=== PATIENT | male | born 1975 | race Two or more races ===

== ENCOUNTER 2025-03-15 17:39 | Emergency (ER) | payer MEDICAID, OTHER ==
[~2025-03-15] VITALS: Ht 185.4 cm; Wt 92.7 kg
[2025-03-15 17:48] VITALS: BP 140/97; PULSE 91; RESP 20; TEMP 97.8; O2SAT 99
--- NOTE | 2025-03-15 18:43 | ED.PDOC ---
History of Present Illness HPI Comments 49-year-old male with PMHx Metastatic Stage 4 Renal Cell Carcinoma presents with a chief complaint of generalized weakness with associated nausea and vomiting. Patient states that he recently had a craniotomy due to his metastatic cancer and has been having generalized weakness since. Patient states that he was meant to follow-up with neurology, but AMA'd due to being scared. Patient denies any headache or head pain at this time. Chief Complaint: General Weakness Time Seen by MD: 18:22 Primary Care Provider: NATALIE Reviewed Notes: Nurses Notes, Medications, Allergies Allergies: Coded Allergies: Penicillins (Verified Allergy, Unknown, 03/15/25) Information Source: Patient Mode of Arrival: Ambulatory Severity: Moderate Timing: Hours Duration: Since onset Prehospital treatment: None Past Medical History PAST MEDICAL HISTORY: Cancer, HTN Surgical History (Other): CRANIOTOMY Family History Family History: Reviewed,noncontributory to illness Social History Smoker: Cigarettes Alcohol: Denies ETOH Use Drugs: Marijuana Lives In: Home Constitutional: denies: chills, diaphoresis, fatigue, fever, malaise, sweats, weakness, others EENTM: denies: blurred vision, double vision, ear bleeding, ear discharge, ear drainage, ear pain, ear ringing, eye pain, eye redness, hearing loss, mouth pain, mouth swelling, nasal discharge, nose bleeding, nose congestion, nose pain, photophobia, tearing, throat pain, throat swelling, voice changes, others Respiratory: denies: cough, hemoptysis, orthopnea, SOB at rest, shortness of breath, SOB with excertion, stridor, wheezing, others Cardiovascular: denies: chest pain, dizzy spells, diaphoresis, Dyspnea on exertion, edema, irregular heart beat, left arm pain, lightheadedness, palpitations, PND, syncope, others Gastrointestinal: denies: abdomen distended, abdominal pain, blood streaked bowels, constipated, diarrhea, dysphagia, difficulty swallowing, hematemesis, melena, nausea, poor appetite, poor fluid intake, rectal bleeding, rectal pain, vomiting, others Genitourinary: denies: burning, dysuria, flank pain, frequency, hematuria, incontinence, penile discharge, penile sore, pain, testicle pain, testicle swelling, urgency, others Neurological: denies: dizziness, fainting, headache, left sided numbness, left sided weakness, numbness, paresthesia, pre-existing deficit, right sided numbness, right sided weakness, seizure, speech problems, tingling, tremors, weakness, others Musculoskeletal: denies: back pain, gout, joint pain, joint swelling, muscle pain, muscle stiffness, neck pain, others Integumetry: denies: bruises, change in color, change in hair/nails, dryness, laceration, lesions, lumps, rash, wounds, others Allergic/Immunocompromised: denies: Difficulty Healing, Frequent Infections, Hives, Itching, others Hematologic/Lymphatic: denies: anemia, blood clots, easy bleeding, easy bruising, swollen glands, others Endocrine: denies: excessive hunger, excessive sweating, excessive thirst, excessive urination, flushing, intolerance to cold, intolerance to heat, unexplained weight gain, unexplained weight loss, others Psychiatric: denies: anxiety, bipolar disorder, depression, hopeless, panic d isorder, schizophrenia, sleepless, suicidal, others All Other Systems: Reviewed and Negative Physical Exam General Appearance: No Apparent Distress HEENT: Pale Conjuntivae (L), Pale Conjuntivae (R), Pharynx Normal, TMs Normal Neck: Full Range of Motion, Non-Tender, Normal, Normal Inspection Respiratory: Chest Non-Tender, Lungs Clear, No Accessory Muscle Use, No Respiratory Distress, Normal Breath Sounds Cardiovascular: No Edema, No JVD, No Murmur, No Gallop, Normal Peripheral Pulses, Regular Rate/Rhythm Breast Exam: Deferred Gastrointestinal: No Organomegaly, Non Tender, No Pulsatile Mass, Normal Bowel Sounds, Soft Genitalia: Deferred Pelvic: Deferred Rectal: Deferred Extremities: No calf tenderness, Normal capillary refill, Normal inspection, Normal range of motion, Non-tender, No pedal edema Musculoskeletal : Apperance: Normal Neurologic: Alert, mold technician II-XII nml as Tested, Motor Weakness, Normal Affect, Normal Mood, No Sensory Deficits Cerebellar Function: Normal Reflexes: Normal Skin: Dry, Pallor, Warm Lymphatic: No Adenopathy Was a procedure done? Was a procedure done?: No Differential Dx Considerations may include: Anemia, generalized weakness, electrolyte imbalance X-Ray, Labs, Meds, VS Vital Signs Date Time Temp Pulse Resp B/P (MAP) Pulse Ox O2 Delivery O2 Flow Rate FiO2 7/22/25 17:48 97.8 91 20 140/97 (111) 99 97.8 At this time, the patient has eloped from the department's. We did try to contact the patient but unfortunately it seems he is now non from the department's Time of 1ST Reevaluation: 18:52 Reevaluation 1ST: Unchanged Patient Education/Counseling: Diagnosis, Treatment, Prognosis Family Education/Counseling: No Family Present SEPSIS Sepsis Screen Date sepsis recognized/suspect: Mar 15, 2025 Time Sepsis recognized/suspect: 1747 Recent Procedure: No On Antibiotic Therapy: No Respiratory Rate >20: No Heart Rate >90: Yes Temp<36 C (96.8 F) or >38.3 C: No SBP <90 or MAP <65 mmHG: No New Acute Mental Status Change: No Is the patient on CPAP, BIPAP,: No Physician Orders Head Without Contrast (03/15/25 18:30) Vital Signs Date Time Temp Pulse Resp B/P (MAP) Pulse Ox O2 Delivery O2 Flow Rate FiO2 03/15/25 17:48 97.8 91 20 140/97 (111) 99 97.8 Departure 1 Departure Time of Disposition: 20:40 Impression: Primary Impression: Generalized weakness Additional Impression: Renal carcinoma Qualified Codes: C64.9 - Malignant neoplasm of unspecified kidney, except renal pelvis Disposition: 07 LEFT AWOL/ELOPED Condition: Fair Critical Care Note Critical Care Time?: No Stability Stability form required: No Heart Score Heart Score: Heart Score Response (Comments) Value History N/A 0 EKG N/A 0 Age N/A 0 Risk Factors N/A 0 Troponin N/A 0 Total 0 I personally scribed for RAAD TINAJERO MD ([email or web address]) on 03/15/25 at 18:43. Electronically submitted by Satish Kan ([email or web address]). RAAD TINAJERO MD Mar 15, 2025 18:43
== END 2025-03-15 20:40 | disposition left against medical advice (07) ==
LOC: ER 17:39
DX: R53.1 Weakness (principal); C64.9 Malignant neoplasm of unspecified kidney, except renal pelvis; F12.90 Cannabis use, unspecified, uncomplicated; F17.210 Nicotine dependence, cigarettes, uncomplicated; I10 Essential (primary) hypertension; Z98.890 Other specified postprocedural states; Z88.0 Allergy status to penicillin
CPT/HCPCS: 82947

== ENCOUNTER 2025-05-18 01:44 | Inpatient (IN) | payer MEDICAID ==
[2025-05-18] VITALS (11 sets, daily range): BP systolic 133–137; BP diastolic 86–90; PULSE 88–120; RESP 16–25; TEMP 98–99.4; O2SAT 93–100
[~2025-05-18] VITALS: Ht 185.4 cm; Wt 79.0 kg
[2025-05-18] MEDS: SODIUM CHLORIDE 0.9% 1,000 ML IVB ONE (03:00)
[2025-05-18] MEDS: MORPHINE SULFATE 4 MG/ML SYR/VIAL IV ONE (03:00)
--- NOTE | 2025-05-18 03:02 | ED.PDOC ---
History of Present Illness HPI Comments 49-year-old male with a history of renal cell cancer with brain Mets and left knee meniscus tear now presents by ambulance from home with left knee pain and swelling. Patient attributes this to this chronic pain and from the meniscus tear. Also rapid heart rate noted. Patient denies chest pain or fever throwing up or diarrhea Chief Complaint: Lower Extremity Time Seen by MD: 02:04 Primary Care Provider: NATALIE Allergies: Coded Allergies: Penicillins (Verified Allergy, Unknown, 03/15/25) Information Source: Patient, Emergency Med Personnel Mode of Arrival: EMS Severity: Moderate, Severe Timing: Days Duration: Since onset Past Medical History PAST MEDICAL HISTORY: Cancer, HTN Family History Family History: Reviewed,noncontributory to illness Social History Smoker: Cigarettes Alcohol: Denies ETOH Use Drugs: Marijuana Lives In: Home Constitutional: reports: fatigue, malaise Cardiovascular: reports: palpitations Musculoskeletal: reports: joint pain, joint swelling All Other Systems: Reviewed and Negative Physical Exam General Appearance: Moderate Distress HEENT: Normal ENT Inspection, Pharynx Normal, TMs Normal Neck: Full Range of Motion, Non-Tender, Normal, Normal Inspection Respiratory: Chest Non-Tender, Lungs Clear, No Accessory Muscle Use, No Respiratory Distress, Normal Breath Sounds Cardiovascular: Tachycardia Breast Exam: Deferred Gastrointestinal: No Organomegaly, Non Tender, No Pulsatile Mass, Normal Bowel Sounds, Soft Genitalia: Deferred Pelvic: Deferred Rectal: Deferred Extremities: Swelling (Left knee diffuse tenderness and swelling. No calf tenderness.), Tender, Other Musculoskeletal : Apperance: Normal Neurologic: Alert, hand i cutter II-XII nml as Tested, No Motor Deficits, Normal Affect, Normal Mood, No Sensory Deficits Cerebellar Function: Normal Reflexes: Normal Skin: Dry, Normal Color, Warm Lymphatic: No Adenopathy Was a procedure done? Was a procedure done?: No Differential Dx Considerations may include: Differential diagnosis includes but not limited to: Pulmonary embolus, coronary ischemia, sepsis, atrial fibrillation, ventricular tachycardia, dehydration and others X-Ray, Labs, Meds, VS Vital Signs Date Time Temp Pulse Resp B/P (MAP) Pulse Ox O2 Delivery O2 Flow Rate FiO2 05/18/25 04:00 125 20 147/87 (107) 100 05/18/25 03:41 119 05/18/25 03:00 118 30 134/84 (101) 99 05/18/25 03:00 120 28 134/84 05/18/25 02:49 120 19 95 Room Air* 0 21 05/18/25 02:10 98.1 120 28 118/83 (95) 95 98.1 05/18/25 01:54 98.6 118 18 118/82 94 98.6 Lab Test 05/18/25 04:50 05/18/25 03:47 05/18/25 03:04 Range/Units Urine Color Pending Urine Clarity Pending Urine pH Pending Urine Specific [place] Pending Urine Protein Pending Urine Ketones Pending Urine Blood Pending Urine Nitrite Pending Urine Bilirubin Pending Urine Urobilinogen Pending Urine Leukocyte Esterase Pending Urine RBC Pending Urine Microscopic WBC Pending Urine Squamous Epithelial Cells Pending Urine Bacteria Pending Urine Glucose Pending Urine Opiates Screen Pending Urine Fentanyl Screen Pending Urine Barbiturates Screen Pending Urine Phencyclidine Screen Pending Urine Amphetamines Screen Pending Urine Benzodiazepines Screen Pending Urine Cocaine Screen Pending Urine Cannabinoids Screen Pending Troponin I High Sensitivity 24 41 </=54 ng/L White Blood Count 14.0 H 4.4-10.8 10^3/uL Red Blood Count 3.50 L 4.5-5.90 10^6/uL Hemoglobin 10.3 L 13.5-17.5 g/dL Hematocrit 31.3 L 41.0-53.0 % Mean Corpuscular Volume 89.5 80.0-100.0 fL Mean Corpuscular Hemoglobin 29.5 28.0-32.0 pg Mean Corpuscular Hemoglobin Concent 33.0 32.0-36.0 g/dL Red Cell Distribution Width 16.2 H 11.8-14.3 % Platelet Count 292 140-450 10^3/uL Mean Platelet Volume 6.2 L 6.9-10.8 fL Neutrophils (%) (Auto) 90.4 H 37.0-80.0 % Lymphocytes (%) (Auto) 6.4 L 10.0-50.0 % Monocytes (%) (Auto) 2.7 0.0-12.0 % Eosinophils (%) (Auto) 0.1 0.0-7.0 % Basophils (%) (Auto) 0.4 0.0-2.0 % Neutrophils # (Auto) 12.6 H 1.6-8.6 10 ^3/uL Lymphocytes # (Auto) 0.9 0.4-5.4 10 ^3/uL Monocytes # (Auto) 0.4 0-1.3 10 ^3/uL Eosinophils # (Auto) 0 0-0.8 10 ^3/uL Basophils # (Auto) 0 0-0.2 10 ^3/uL Nucleated Red Blood Cells 0.0 % D-Dimer, Quantitative 14.23 H 0.0-0.49 mg/L FEU Sodium Level 135 L 136-145 mmol/L Potassium Level 4.3 3.5-5.1 mmol/L Chloride Level 100 98-107 mmol/L Carbon Dioxide Level 24 20-31 mmol/L Anion Gap 11 5-15 Blood Urea Nitrogen 19 9-23 mg/dL Creatinine 0.77 0.700-1.30 mg/dL Glomerular Filtration Rate Calc 111 >90 mL/min BUN/Creatinine Ratio 24.7 H 10.0-20.0 Serum Glucose 110 H 74-106 mg/dL Calcium Level 9.5 8.7-10.4 mg/dL Total Bilirubin 0.6 0.2-1.0 mg/dL Aspartate Amino Transferase (AST) 20 13-40 U/L Alanine Aminotransferase (ALT) 12 7-40 U/L Alkaline Phosphatase 130 H 46-116 U/L B-Type Natriuretic Peptide 53.70 0-100 pg/mL Total Protein 7.2 5.7-8.2 g/dL Albumin 3.5 3.2-4.8 g/dL Thyroid Stimulating Hormone (TSH) 1.55 0.55-4.78 uIU/mL Free Thyroxine (T4) Calculated 1.45 0.89-1.76 ng/dL Current Medications Medications (Trade) Dose Ordered Sig/Trent Route Start Time Stop Time Status Last Admin Sodium Chloride 1,000 ml @ 1,000 mls/hr Q1H ONCE IVB 05/18/25 03:00 05/18/25 03:59 DC 05/18/25 03:00 Morphine Sulfate 4 mg ONCE ONCE IV 05/18/25 03:00 05/18/25 03:01 DC 05/18/25 03:00 Ondansetron HCl (Zofran) 4 mg ONCE ONCE IV 05/18/25 03:00 05/18/25 03:01 DC 05/18/25 03:15 Time of 1ST Reevaluation: 03:01 Reevaluation 1ST: Unchanged Patient Education/Counseling: Diagnosis, Treatment Family Education/Counseling: No Family Present SEPSIS Sepsis Screen Date sepsis recognized/suspect: May 18, 2025 Time Sepsis recognized/suspect: 229 Recent Procedure: No On Antibiotic Therapy: No Respiratory Rate >20: No Heart Rate >90: Yes Temp<36 C (96.8 F) or >38.3 C: No SBP <90 or MAP <65 mmHG: No New Acute Mental Status Change: No Is the patient on CPAP, BIPAP,: No Physician Orders Chest Portable (05/18/25 02:56) Urinalysis (05/18/25 02:56) Troponin-I Hs (05/18/25 05:56) Drug Screen (05/18/25 02:56) Ct Chest/Ab/Pl W Con- Iv Only (05/18/25 04:01) Lactic Acid W/ Reflex Order (05/18/25 04:57) Blood Culture (05/18/25 04:57) Ceftriaxone 1gm/50ml (Rocephin) (05/18/25 05:15) Clindamycin 300mg Iv (Cleocin Iv) (05/18/25 05:15) Vital Signs Date Time Temp Pulse Resp B/P (MAP) Pulse Ox O2 Delivery O2 Flow Rate FiO2 05/18/25 04:00 125 20 147/87 (107) 100 05/18/25 03:41 119 05/18/25 03:00 118 30 134/84 (101) 99 05/18/25 03:00 120 28 134/84 05/18/25 02:49 120 19 95 Room Air* 0 21 05/18/25 02:10 98.1 120 28 118/83 (95) 95 98.1 05/18/25 01:54 98.6 118 18 118/82 94 98.6 Laboratory Tests Test 05/18/25 03:04 White Blood Count 14.0 10^3/uL (4.4-10.8) H Medications Medications Dose Ordered Sig/Trent Route Start Time Stop Time Status Last Admin Dose Admin Morphine Sulfate 4 mg ONCE ONCE IV 05/18/25 03:00 05/18/25 03:01 DC 05/18/25 03:00 Ondansetron HCl 4 mg ONCE ONCE IV 05/18/25 03:00 05/18/25 03:01 DC 05/18/25 03:15 Sodium Chloride 1,000 ml @ 1,000 mls/hr Q1H ONCE IVB 05/18/25 03:00 05/18/25 03:59 DC 05/18/25 03:00 Departure 1 Departure Time of Disposition: 05:06 Impression: Primary Impression: Generalized weakness Additional Impressions: Renal carcinoma Bilateral pulmonary embolism Disposition: ADMITTED INPATIENT Admit to: Tele Condition: Guarded Discharged With: Self Critical Care Note Critical Care Time?: Yes (35 min-critical care time only) Critical care comment: Total critical care time: Approximately 36 minutes Due to a high probability of clinically significant, life threatening deterioration, the patient required my highest level of preparedness to intervene emergently and I personally spent this critical care time directly and personally managing the patient. This critical care time included obtaining a history; examining the patient; pulse oximetry; ordering and review of studies; arranging urgent treatment with development of a management plan; evaluation of patient's response to treatment; frequent reassessment; and, discussions with other providers. This critical care time was performed to assess and manage the high probability of imminent, life-threatening deterioration that could result in multi-organ failure. It was exclusive of separately billable procedures and treating other patients. Stability Stability form required: No Heart Score Heart Score: Heart Score Response (Comments) Value History Slightly Suspicious 0 EKG Repolarization Disturb 1 Age 45-64 1 Risk Factors 1 or 2 risk factors 1 Troponin Normal limit 0 Total 3 GENO BUCKLEY MD May 18, 2025 03:02
[2025-05-18] MEDS: ONDANSETRON HCL 4 MG/2 ML VIAL IV ONE (03:15)
[2025-05-18 03:16] LABS: Hematocrit 31.3 % (41.0-53.0); Hemoglobin 10.3 g/dL (13.5-17.5); Mean Corpuscular Hemoglobin 29.5 pg (28.0-32.0); Mean Corpuscular Volume 89.5 fL (80.0-100.0); Nucleated Red Blood Cells % 0.0 %
--- NOTE | 2025-05-18 03:31 | DVH ---
CHEST RADIOGRAPH Indication: SOB Technique: Single frontal view of the chest was obtained COMPARISON: None FINDINGS: Lines and Tubes: Right mediPort tip projects over the distal superior vena cava. Lungs: Patchy right lower lung zone pulmonary airspace disease. Pleura: No effusion. No pneumothorax. Cardiomediastinal contours: Unremarkable Bones: Unremarkable IMPRESSION: 1. Patchy right lower lung zone pulmonary airspace disease. 2. Right MediPort.
[2025-05-18 03:32] LABS: Alanine Aminotransferase 12 U/L (7-40); Albumin 3.5 g/dL (3.2-4.8); Anion Gap 11 (5-15); BUN/Creatinine Ratio 24.7 (10.0-20.0); Bilirubin, Total 0.6 mg/dL (0.2-1.0); Blood Urea Nitrogen 19 mg/dL (9-23); Calcium 9.5 mg/dL (8.7-10.4); Carbon Dioxide 24 mmol/L (20-31); Chloride 100 mmol/L (98-107); Potassium 4.3 mmol/L (3.5-5.1); Total Protein 7.2 g/dL (5.7-8.2)
--- NOTE | 2025-05-18 03:42 | ECG ---
[facility] Test Date: 2025-05-18 Test Time: 03:41:07 Pat Name: IRENE SHRESTHA Department: Room: 0237T Gender: M Licensed Guide: NATHALIE : 1975 Requested By: GENO BUCKLEY Order Number: [id number] Reading MD: Malcom Villar Measurements Intervals [place] Rate: 119 P: 50 MA: 156 QRS: -14 QRSD: 99 T: 62 QT: 307 QTc: 432 Interpretive Statements Sinus tachycardia Electronically Signed On 05-26-2025 21:31:38 PDT by Malcom Villar Please click the below link to view image of tracing.
[2025-05-18 03:59] LABS: Alkaline Phosphatase 130 U/L (46-116); Glucose 110 mg/dL (74-106); Sodium 135 mmol/L (136-145)
[2025-05-18] MEDS: IOHEXOL 350 MG/ML 100ML IJ ONE (04:13)
[2025-05-18] MEDS ORDERED: PIPERACILLIN-TAZOB 3.375GM 100 ML IV ONE (05:00)
--- NOTE | 2025-05-18 05:13 | DVH ---
Exam: CT CT CHEST/AB/PL W CON- IV ONLY History: palpitations / pain r/o PE ///ABD Comparison Study: XY CHEST PORTABLE on DOS: 05/18/25 Technique: Multidetector spiral CT of the chest, abdomen and pelvis was performed from lower neck to pubic symphysis Axial, coronal and sagittal multiplanar reformats were performed by the technologist on a separate workstation. Radiation Dose : 1. Chest/Abdomen/Pelvis: CTDIvol 26.55 mGy, DLP 2910.12 mGy*cm. Findings: Lower neck: Normal thyroid. Lungs: Multiple masses throughout both lungs, the largest of which is a 3.6 x 2.6 cm posterior right lower lobe mass, consistent with metastatic disease. Diffuse bilateral ground-glass opacity. Heart/Vascular Structures: Normal heart size. Trace pericardial effusion. Filling defects noted bilat erally within primarily the lower lobe branches of the pulmonary arteries consistent with multiple pu lmonary emboli. Lymph Nodes: Multiple pathologically enlarged lymph nodes consistent with metastatic disease includin g a 7.5 x 5.2 cm superior right paratracheal mass as well as a 4.0 x 2.4 cm subcarinal mass and many other smaller aubree enlargements. Pleura: Small right pleural effusion. No evidence of pneumothorax. Liver: The liver is enlarged. No focal lesions. Normal hepatic vascular enhancement. Gallbladder and Biliary Tree: Unremarkable Spleen: Unremarkable. Multiple venous collaterals adjacent to the splenic hilum consistent with sequ elae of portal venous hypertension. Pancreas: The pancreas is normal in appearance without focal lesions or abnormal enhancement. Adrenal Glands: 1.6 cm hypoattenuating right adrenal nodule, adenoma versus metastatic disease. Kidneys: Lobulated heterogeneous right renal mass exhibiting central necrosis measuring 12.0 x 8.0 cm , most consistent with primary renal cell carcinoma. Left interpolar renal mass measures 1.8 cm and m ay represent malignancy. Bladder: Unremarkable Bowel: The stomach is grossly normal in appearance. Retained colorectal stool and mild rectal fecal i mpaction. Small bowel and colon are otherwise normal in caliber and distribution. The appendix is no rmal. Ascites: Trace right abdominal ascites. Lymphadenopathy: No mesenteric, retroperitoneal or periportal lymphadenopathy. Abdominal Wall and Mesentery: Unremarkable. Vasculature: The visualized abdominal aorta is normal in size and caliber. Abdominal and pelvic vess els demonstrate normal enhancement. Pelvic Organs: Unremarkable Musculoskeletal: No aggressive focal bony lesions, acute fractures or dislocation. IMPRESSION: 1. Bilateral pulmonary emboli 2. Multiple bilateral pulmonary masses consistent with metastatic disease. 3. Multiple pathologically enlarged mediastinal lymph nodes consistent with metastatic disease. 4. Lobulated heterogeneous right renal mass exhibiting central necrosis measuring 12.0 x 8.0 cm, most consistent with primary renal cell carcinoma. 5. Left interpolar renal mass measures 1.8 cm and may represent malignancy. 6. Trace right abdominal ascites. 7. Hepatomegaly. 8. Multiple venous collaterals adjacent to the splenic hilum consistent with sequelae of portal venou s hypertension. 9. 1.6 cm hypoattenuating right adrenal nodule, adenoma versus metastatic disease. 10. Small right pleural effusion. 11. Diffuse bilateral ground-glass opacity may be due to pulmonary edema or atypical infection. 12. Trace pericardial effusion. Critical Result: Pulmonary embolus Findings discussed with GENO BUCKLEY at 05/18/2025 08:05 AM PST, and acknowledged receipt and unde rstanding of the findings. All CT scans at this medical facility are performed using dose modulation techniques as appropriate t o a performed exam including the following: Automated exposure control was utilized; adjustment of th e MA and/or KV according to patient size; and use of iterative reconstruction technique.
[2025-05-18 05:14] LABS: Urine Protein, UAD 1+ (Negative)
[2025-05-18] MEDS ORDERED: HEPARIN SODIUM (PORCINE) 5000 UNITS/ML 1ML VIAL IV ONE (05:15)
[2025-05-18 05:18] LABS: Amphetamine Screen, Urine Neg (NEGATIVE); Benzodiazephine Screen, Urine Pos (NEGATIVE)
[2025-05-18 05:19] LABS: Barbiturate Scree,Urine Neg (NEGATIVE); Cannabinoid Screen, Urine Pos (NEGATIVE); Cocaine Screen, Urine Neg (NEGATIVE); Opiate Scree,Urine Pos (NEGATIVE); Phencyclidine Screen, Urine Neg (NEGATIVE)
[2025-05-18] MEDS: CLINDAMYCIN 300MG IV 50 ML IV ONE (05:50)
[2025-05-18] MEDS ORDERED: VANCOMYCIN PER PHARMACY 0 MG IV SCH (06:15)
[2025-05-18 06:27] LABS: INR 1.19 (0.9-1.15); Partial Thromboplastin Time 30.5 SEC (24.5-34.5); Prothrombin Time 12.4 sec (9.3-11.8)
[2025-05-18] MEDS: HEPARIN SODIUM (PORCINE) 5000 UNITS/ML 1ML VIAL IV ONE (06:31)
--- NOTE | 2025-05-18 06:41 | DVHHPRES ---
History of Present Illness Resident Creating Document: RUSTY SHAH History of Present Illness Parveen Cano is a 49-year-old male patient who presents to the ED with chief complaint of left knee pain secondary to torn meniscus which occurred on 05/11/2025, per patient he reports evaluation by insurance account specialist who recommended conservative management. Since then patient has been practically bed-bound. 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 Denies any other associated symptoms, including chest pain, dyspnea, palpitation and syncope. Past medical history: Renal cell carcinoma stage IV with multiple metastases including brain, status post craniotomy and chemotherapy Surgical history: Craniotomy, Port-A-Cath placement Family history: Noncontributory Social history: Lives in [place] with girlfriend (next of kin). Current tobacco abuse (approximately 30 pack-year history of smoking), he also smokes marijuana. Denies current alcohol and other drug abuse. Allergies: Penicillin Home medication: Does not recall. Patient says that he is still receiving chemotherapy (does not recall the name). Patient seen and examined at bedside. He is somnolent, presents expression aphasia probably his baseline. Contacted father who provides information of patient being in long term for the past three months and was not receiving chemotherapy. Past Medical History Per HPI Past Surgical History Per HPI Family History Per HPI Past Social History Per HPI Review of Systems Review of Systems Per HPI Allergies: Coded Allergies: Penicillins (Verified Allergy, Unknown, 03/15/25) Medications Current Medications Medications Dose Ordered Sig/Trent Route Start Time Stop Time Status Last Admin Dose Admin Heparin Sodium/ Dextrose 250 ml @ 16 mls/hr [id number] IV 05/18/25 06:30 UNV Acetaminophen 325 mg Q4HP PRN PO 05/18/25 06:15 Ondansetron HCl 4 mg Q4HP PRN IV 05/18/25 06:15 Morphine Sulfate 2 mg Q4HPRN PRN IV 05/18/25 06:15 Sodium Chloride 1,000 ml @ 75 mls/hr [id number] IV 05/18/25 06:15 Vancomycin HCl 0 ml @ 0 mls/hr UD IV 05/18/25 06:15 UNV Meropenem 50 ml @ 17 mls/hr Q8HR IV 05/18/25 14:00 UNV Exam Vital Signs Vital Signs Date Time Temp Pulse Resp B/P (MAP) Pulse Ox O2 Delivery O2 Flow Rate FiO2 05/18/25 06:00 120 17 122/79 (93) 97 05/18/25 02:49 Room Air* 0 21 05/18/25 02:10 98.1 98.1 Exam Patient lying in bed, in no acute distress General: Lucid, somnolent, afebrile, mucosae are dry, has poor dentition Cardiovascular: Tachycardic S1 and S2. No murmurs, gallops or rubs Respiratory: Regular ventilation mechanics, tachypnea. Diffuse hyperventilation, coarse rales in the right lower lob Abdomen: Soft, nontender, no organomegaly, normal bowel sounds MSK/skin: Mobilizes all limbs except left lower limb due to increased pain. Left knee is erythematous and warm to the touch compared to the right. Skin is dry and warm Neurological: Oriented in 3 spheres, Bradypsychia, mild expression aphasia. Left arm weakness, can not mobilize left leg due to pain. Pupils are isocoric and reactive Labs/Xrays Labs Test 05/18/25 05:50 05/18/25 04:50 05/18/25 03:04 Range/Units Lactic Acid Level 1.1 0.4-2.0 mmol/L Troponin I High Sensitivity 38 </=54 ng/L Urine Color Yellow Yellow Urine Clarity Turbid H Clear Urine pH 6.0 5.0-9.0 Urine Specific [place] 1.023 1.001-1.035 Urine Protein 1+ H Negative Urine Ketones 1+ H Negative Urine Blood 2+ H Negative /uL Urine Nitrite 2+ H Negative Urine Bilirubin Negative Negative Urine Urobilinogen 3 H Negative mg/dL Urine Leukocyte Esterase 3+ Negative /uL Urine RBC 22 0 - 3 /hpf Urine Microscopic WBC 260 H 0-3 /HPF Urine Squamous Epithelial Cells None seen <5 /hpf Urine Bacteria Few H None Seen /hpf Urine Mucus Few None Seen Urine Glucose Normal Normal mg/dL Urine Opiates Screen Pos NEGATIVE Urine Fentanyl Screen Neg NEGATIVE Urine Barbiturates Screen Neg NEGATIVE Urine Phencyclidine Screen Neg NEGATIVE Urine Amphetamines Screen Neg NEGATIVE Urine Benzodiazepines Screen Pos NEGATIVE Urine Cocaine Screen Neg NEGATIVE Urine Cannabinoids Screen Pos NEGATIVE White Blood Count 14.0 H 4.4-10.8 10^3/uL Red Blood Count 3.50 L 4.5-5.90 10^6/uL Hemoglobin 10.3 L 13.5-17.5 g/dL Hematocrit 31.3 L 41.0-53.0 % Mean Corpuscular Volume 89.5 80.0-100.0 fL Mean Corpuscular Hemoglobin 29.5 28.0-32.0 pg Mean Corpuscular Hemoglobin Concent 33.0 32.0-36.0 g/dL Red Cell Distribution Width 16.2 H 11.8-14.3 % Platelet Count 292 140-450 10^3/uL Mean Platelet Volume 6.2 L 6.9-10.8 fL Neutrophils (%) (Auto) 90.4 H 37.0-80.0 % Lymphocytes (%) (Auto) 6.4 L 10.0-50.0 % Monocytes (%) (Auto) 2.7 0.0-12.0 % Eosinophils (%) (Auto) 0.1 0.0-7.0 % Basophils (%) (Auto) 0.4 0.0-2.0 % Neutrophils # (Auto) 12.6 H 1.6-8.6 10 ^3/uL Lymphocytes # (Auto) 0.9 0.4-5.4 10 ^3/uL Monocytes # (Auto) 0.4 0-1.3 10 ^3/uL Eosinophils # (Auto) 0 0-0.8 10 ^3/uL Basophils # (Auto) 0 0-0.2 10 ^3/uL Nucleated Red Blood Cells 0.0 % D-Dimer, Quantitative 14.23 H 0.0-0.49 mg/L FEU Sodium Level 135 L 136-145 mmol/L Potassium Level 4.3 3.5-5.1 mmol/L Chloride Level 100 98-107 mmol/L Carbon Dioxide Level 24 20-31 mmol/L Anion Gap 11 5-15 Blood Urea Nitrogen 19 9-23 mg/dL Creatinine 0.77 0.700-1.30 mg/dL Glomerular Filtration Rate Calc 111 >90 mL/min BUN/Creatinine Ratio 24.7 H 10.0-20.0 Serum Glucose 110 H 74-106 mg/dL Calcium Level 9.5 8.7-10.4 mg/dL Total Bilirubin 0.6 0.2-1.0 mg/dL Aspartate Amino Transferase (AST) 20 13-40 U/L Alanine Aminotransferase (ALT) 12 7-40 U/L Alkaline Phosphatase 130 H 46-116 U/L B-Type Natriuretic Peptide 53.70 0-100 pg/mL Total Protein 7.2 5.7-8.2 g/dL Albumin 3.5 3.2-4.8 g/dL Thyroid Stimulating Hormone (TSH) 1.55 0.55-4.78 uIU/mL Free Thyroxine (T4) Calculated 1.45 0.89-1.76 ng/dL SEPSIS Sepsis Screen Date sepsis recognized/suspect: May 18, 2025 Time Sepsis recognized/suspect: 229 Recent Procedure: No On Antibiotic Therapy: No Respiratory Rate >20: No Heart Rate >90: Yes Temp<36 C (96.8 F) or >38.3 C: No SBP <90 or MAP <65 mmHG: No New Acute Mental Status Change: No Is the patient on CPAP, BIPAP,: No Physician Orders Chest Portable (05/18/25 02:56) Ct Chest/Ab/Pl W Con- Iv Only (05/18/25 04:01) Blood Culture (05/18/25 04:57) Platelet Monitoring (05/18/25 05:04) Vte Protocol Initiated (05/18/25 05:04) Heparin Per Standardized Proce (05/18/25 05:04) Discontinue All Im Injections (05/18/25 05:04) PTPTT (05/18/25 05:04) Heparin Drip/D5w 100units/Ml (05/18/25 05:15) Admit (05/18/25 06:03) Code Status (05/18/25 06:03) Acetaminophen Tablet (Tylenol Tablet) (05/18/25 06:15) Ondansetron Hcl (Zofran) (05/18/25 06:15) Complete Blood Count (05/19/25 04:00) Comprehensive Metabolic Panel (05/19/25 04:00) Npo (Nothing By Mouth) Diet (05/18/25 Breakfast) Echo 2d Mode Cardiac Dop (05/18/25 06:03) Morphine Sulfate Injection (05/18/25 06:15) Oxygen By Nasal Cannula (05/18/25 06:03) Stat Ekg For Chest Pain (05/18/25 06:03) Notify Of Changes From Base (05/18/25 06:03) Auto Fleet Manager For 24 Hours (05/18/25 06:03) Emergency Dysrhythmia Protocol (05/18/25 06:03) Rhythm Strips Once Every Shift (05/18/25 06:03) Sodium Chloride 0.9% (05/18/25 06:15) Sodium Chloride 0.9% (05/18/25 06:15) Vancomycin Per Pharmacy (05/18/25 06:15) Vancomycin 1gm/250ml Kit (05/18/25 06:15) Urine Bacterial Culture (05/18/25 06:03) Respiratory Culture W/ Gs (05/18/25 06:03) Sputum Induction (05/18/25 06:03) Mrsa Screen (05/18/25 06:03) Covid19 Antigen Steffi (05/18/25 ) Rapid Influenza A&B (05/18/25 06:03) * Radiologist Consult (05/18/25 06:09) Bilat Lower Dvt (05/18/25 06:11) Abg W/ Co-Ox (05/18/25 06:12) Meropenem 1gm Ivpb (Merrem 1gm/50ml) (05/18/25 14:00) Heparin Sodium (Porcine) (05/18/25 06:30) Vital Signs Date Time Temp Pulse Resp B/P (MAP) Pulse Ox O2 Delivery O2 Flow Rate FiO2 05/18/25 06:00 120 17 122/79 (93) 97 05/18/25 05:00 121 22 145/87 (106) 98 05/18/25 04:00 125 20 147/87 (107) 100 05/18/25 03:41 119 05/18/25 03:00 118 30 134/84 (101) 99 05/18/25 03:00 120 28 134/84 05/18/25 02:49 120 19 95 Room Air* 0 21 05/18/25 02:10 98.1 120 28 118/83 (95) 95 98.1 05/18/25 01:54 98.6 118 18 118/82 94 98.6 Laboratory Tests Test 05/18/25 03:04 05/18/25 05:50 White Blood Count 14.0 10^3/uL (4.4-10.8) H Lactic Acid Level 1.1 mmol/L (0.4-2.0) Medications Medications Dose Ordered Sig/Trent Route Start Time Stop Time Status Last Admin Dose Admin Clindamycin Phosphate 50 ml @ 50 mls/hr ONCE ONCE IV 05/18/25 05:15 05/18/25 06:14 DC 05/18/25 05:50 50 MLS/HR Morphine Sulfate 4 mg ONCE ONCE IV 05/18/25 03:00 05/18/25 03:01 DC 05/18/25 03:00 4 MG Ondansetron HCl 4 mg ONCE ONCE IV 05/18/25 03:00 05/18/25 03:01 DC 05/18/25 03:15 4 MG Sodium Chloride 1,000 ml @ 1,000 mls/hr Q1H ONCE IVB 05/18/25 03:00 05/18/25 03:59 DC 05/18/25 03:00 1,000 MLS/HR Assessment/Plan Assessment/Plan ASSESSMENT Acute respiratory failure secondary to bilateral PE Sepsis secondary to pneumonia versus UTI Probable community-acquired pneumonia Gram-positive/Gram-negative Complicated UTI Normocytic anemia Rule out septic arthritis of left knee Stage IV renal cell carcinoma status post brain metastases resection - residual left sided weakness in mild aphasia Left knee meniscal tear - partially bedbound Current tobacco abuse PLAN Completed Angio CT which showed bilateral pulmonary embolism, multiple metastasis (mediastinum mass with necrosis), hepatomegaly, portal hypertension, pulmonary edema and enlarged lymph nodes EKG: Sinus tachycardia Currently on heparin drip On oxygen therapy with nasal cannula at 3 L/min. Optimize bronchodilators Obtain bourne cultures (blood, urine and sputum) Currently under empiric IV antibiotic (meropenem and vancomycin) Patient was in long term and was not receiving chemotherapy treatment Ordered lower limb extremity US to evaluate DVT and and also to evaluate fluid in the left knee joint Ordered echocardiogram to evaluate right ventricular strain Radiology was consulted to evaluate thrombectomy Counseled strongly on tobacco cessation Goals of care discussed with patient for over 18 minutes: Full code status Discussed plan with Dr. Willis, patient, father (Mehdi Cano) and nurses: Patient currently is KOBE status, on heparin drip, with oxygen therapy through nasal cannula, under empiric IV antibiotics and optimizing pain management. Patient has advanced stage IV renal cell carcinoma with multiple metastasis observed in lung, mediastinum, and has history of brain metastasis as well. Consulted Radiology to evaluate thrombectomy. Awaiting rest of complementary workup to evaluate source of sepsis. Patient has poor prognosis. May benefit from hospice discussion. Critical care time spent including discussion with nursing and family, excluding procedures: 84 minutes Plan discussed with: Patient, Other (Father (Mehdi Cano) and nurses) My Orders Orders - RUSTY SHAH RESIDENT Procedure Category Date Status Time Admit ADMIT 05/18/25 Transmitted 06:03 Code Status CODE 05/18/25 Transmitted 06:03 Acetaminophen Tablet PHA 05/18/25 In Process (Tylenol Tablet) 06:15 Ondansetron Hcl PHA 05/18/25 In Process (Zofran) 06:15 Complete Blood Count LAB 05/19/25 Verified 04:00 Comprehensive LAB 05/19/25 Verified Metabolic Panel 04:00 Npo (Nothing By DIET 05/18/25 Transmitted Mouth) Diet Breakfast Echo 2d Mode Cardiac US 05/18/25 Logged DOP 06:03 Morphine Sulfate PHA 05/18/25 In Process Injection 06:15 Oxygen By Nasal RT 05/18/25 Transmitted Cannula 06:03 Stat Ekg For Chest CHRISTO 05/18/25 In Process Pain 06:03 Notify Md Of Changes CHRISTO 05/18/25 In Process From Base 06:03 Auto Fleet Manager For CHRISTO 05/18/25 In Process 24 Hours 06:03 Emergency Dysrhythmia CHRISTO 05/18/25 In Process Protocol 06:03 Rhythm Strips Once CHRISTO 05/18/25 In Process Every Shift 06:03 Sodium Chloride 0.9% PHA 05/18/25 In Process 06:15 Sodium Chloride 0.9% PHA 05/18/25 In Process 06:15 Vancomycin Per PHA 05/18/25 Pending Pharmacy 06:15 Vancomycin 1gm/250ml PHA 05/18/25 In Process Kit 06:15 Urine Bacterial [facility] 05/18/25 In Process Culture 06:03 Respiratory Culture [facility] 05/18/25 Logged W/ Gs 06:03 Sputum Induction RT 05/18/25 Logged 06:03 Mrsa Screen [facility] 05/18/25 Logged 06:03 Covid19 Antigen Steffi LAB 05/18/25 Logged Rapid Influenza A&B LAB 05/18/25 Logged 06:03 * Radiologist Consult CONS 05/18/25 Transmitted 06:09 Bilat Lower Dvt US 05/18/25 Logged 06:11 Abg W/ Co-Ox RT 05/18/25 Logged 06:12 Meropenem 1gm Ivpb PHA 05/18/25 Logged (Merrem 1gm/50ml) 14:00 Date of Service: May 18, 2025 Billing Provider: LORIE WILLIS MD Common Visit Codes: [id number] INP/OBS CARE (HIGH) Secondary Visit Codes: [id number] CARE PLAN 30 MINUTES RUSTY SHAH RESIDENT May 18, 2025 06:41
[2025-05-18 06:48] LABS: Base Excess -0.6 mmol/L (-2.0-3.0)
[2025-05-18] MEDS: VANCOMYCIN 1GM/250ML KIT 250 ML IV ONE (07:00)
[2025-05-18] MEDS: HEPARIN DRIP/D5W 100UNITS/ML 250 ML IV SCH ×2 (07:00→14:09)
[2025-05-18] MEDS: SODIUM CHLORIDE 0.9% 1,000 ML IV SCH (08:19)
[2025-05-18] MEDS: SODIUM CHLORIDE 0.9% 500 ML IV ONE (08:19)
--- NOTE | 2025-05-18 08:26 | DVH ---
Bilateral lower extremity venous duplex Clinical History: LL swelling Comparison: None Technique: Duplex Doppler evaluation of the deep venous systems of both lower extremities from the common femora l veins to the popliteal veins including color Doppler and spectral/pulsed waveform analysis was perf ormed. Findings: RIGHT SIDE: The common femoral vein demonstrates appropriate compressibility and waveform variability. There is compressibility/patency of the great saphenous vein at the proximal thigh. The femoral vein demonstrates appropriate compressibility and waveform variability. The deep femoral vein demonstrates appropriate compressibility and waveform variability. The popliteal vein demonstrates appropriate compressibility and waveform variability. There is normal compressibility at the tibioperoneal trunk. LEFT SIDE: The common femoral vein demonstrates appropriate compressibility and waveform variability. There is compressibility/patency of the great saphenous vein at the proximal thigh. The femoral vein demonstrates appropriate compressibility and waveform variability. The deep femoral vein demonstrates appropriate compressibility and waveform variability. The popliteal vein demonstrates appropriate compressibility and waveform variability. There is normal compressibility at the tibioperoneal trunk. Impression: No right or left femoropopliteal venous thrombosis. Popliteal fossa cyst is present in the left lower extremity measuring 6.2 x 2.1 x 5.8 cm.
[2025-05-18 09:57] LABS: COVID19 ANTIGEN SOFIA FIA NEGATIVE (NEGATIVE)
[2025-05-18] MEDS: MORPHINE SULFATE INJ 2 MG/ml SYRG IV PRN (10:55)
[2025-05-18] MEDS: ONDANSETRON HCL 4 MG/2 ML VIAL IV PRN (10:56)
[2025-05-18] MEDS: LEVALBUTEROL HCL 1.25 MG/3 ML NEB NEB SCH (13:02)
[2025-05-18] MEDS: IPRATROPIUM BROM 0.5 MG/2.5ML INH SOL NEB SCH (13:02)
[2025-05-18 13:31] LABS: INR 1.17 (0.9-1.15); Partial Thromboplastin Time 38.0 SEC (24.5-34.5); Prothrombin Time 12.2 sec (9.3-11.8)
[2025-05-18] MEDS: MEROPENEM 1GM IVPB 50 ML IV SCH (14:19)
--- NOTE | 2025-05-18 14:21 | CONS ---
Pharmacy Clinical Information: INCREASE HEPARIN DRIP RATE TO 1800 UNITS/HR PER APTT OF 38.0 (SUBTHERAPEUTIC) NEXT APTT DRAW SCHEDULED FOR 2029 PER RX PROTOCOL MIMI MATHEWS PHARMACIST May 18, 2025 14:21
[2025-05-18] MEDS ORDERED: VANCOMYCIN 1.25GM/250ML 250 ML IV SCH ×2 (15:00→20:00)
--- NOTE | 2025-05-18 16:41 | DVHPN2 ---
Subjective Patient continues to report having knee pain. Denies having shortness of breath Reviewed: Care Plan, H&P, Labs, Medications Changes from previous H/P or p: No Changes General: Per HPI Objective Vitals Vital Signs Date Time Temp Pulse Resp B/P (MAP) Pulse Ox O2 Delivery O2 Flow Rate FiO2 05/18/25 16:00 109 05/18/25 15:00 27 132/81 (98) 92 05/18/25 13:02 Nasal Cannula 3.0 05/18/25 13:02 32 05/18/25 13:00 98.4 98.4 Intake/Output Intake and Output 05/18/25 07:00 Intake Total 1050 ml Output Total 600 ml Balance 450 ml Intake IV Total 1050 ml Output Urine Total 600 ml General Appearance: Alert, Oriented X3, Cooperative, mild distress HEENT: Atraumatic, PERRLA Lungs: Clear to auscultation, Normal air movement Cardiovascular: Normal S1, Normal S2 Abdomen: Normal bowel sounds, Soft, No tenderness, No hepatospenomegaly Musculoskeletal: Normal sensory function, Normal motor function Neuro: Normal gait, Normal speech Skin: Dry, Intact Psych/Mental Status: Mental status NL, Mood NL Medications Current Medications Medications Dose Ordered Sig/Trent Route Start Time Stop Time Status Last Admin Dose Admin Acetaminophen 325 mg Q4HP PRN PO 05/18/25 06:15 Ondansetron HCl 4 mg Q4HP PRN IV 05/18/25 06:15 05/18/25 10:56 4 MG Morphine Sulfate 2 mg Q4HPRN PRN IV 05/18/25 06:15 05/18/25 10:55 2 MG Sodium Chloride 1,000 ml @ 75 mls/hr [id number] IV 05/18/25 06:15 05/18/25 08:19 75 MLS/HR Vancomycin HCl 0 ml @ 0 mls/hr UD IV 05/18/25 06:15 Meropenem 50 ml @ 17 mls/hr Q8HR IV 05/18/25 14:00 05/18/25 14:19 17 MLS/HR Levalbuterol HCl 0.625 mg Q6HR NEB 05/18/25 12:00 05/18/25 13:02 0.625 MG Ipratropium [place] 0.5 mg Q6HWA NEB 05/18/25 12:00 05/18/25 13:02 0.5 MG Heparin Sodium/ Dextrose 250 ml @ 18 mls/hr [id number] IV 05/18/25 14:15 05/18/25 14:09 18 MLS/HR Vancomycin HCl 250 ml @ 200 mls/hr Q8H IV 05/18/25 21:00 Laboratory Results Laboratory Tests 05/18/25 03:04 Chemistry Test 05/18/25 03:04 Albumin 3.5 g/dL (3.2-4.8) Calcium Level 9.5 mg/dL (8.7-10.4) Total Protein 7.2 g/dL (5.7-8.2) Coagulation Test 05/18/25 03:04 05/18/25 05:50 05/18/25 12:56 D-Dimer, Quantitative 14.23 mg/L FEU (0.0-0.49) H Prothrombin Time 12.4 sec (9.3-11.8) H 12.2 sec (9.3-11.8) H Prothrombin Time INR 1.19 (0.9-1.15) H 1.17 (0.9-1.15) H Activated Partial Thromboplast Time 30.5 SEC (24.5-34.5) 38.0 SEC (24.5-34.5) H Cardiac Markers Test 05/18/25 03:04 B-Type Natriuretic Peptide 53.70 pg/mL (0-100) LFT Test 05/18/25 03:04 Alanine Aminotransferase (ALT) 12 U/L (7-40) Alkaline Phosphatase 130 U/L (46-116) H Aspartate Amino Transferase (AST) 20 U/L (13-40) Total Bilirubin 0.6 mg/dL (0.2-1.0) HgA1c, TSH Test 05/18/25 03:04 Thyroid Stimulating Hormone (TSH) 1.55 uIU/mL (0.55-4.78) Urinalysis Test 05/18/25 04:50 Urine Color Yellow (Yellow) Urine Clarity Turbid (Clear) H Urine pH 6.0 (5.0-9.0) Urine Specific [place] 1.023 (1.001-1.035) Urine Protein 1+ (Negative) H Urine Ketones 1+ (Negative) H Urine Blood 2+ /uL (Negative) H Urine Nitrite 2+ (Negative) H Urine Bilirubin Negative (Negative) Urine Urobilinogen 3 mg/dL (Negative) H Urine Leukocyte Esterase 3+ /uL (Negative) Urine RBC 22 /hpf (0 - 3) Urine Microscopic WBC 260 /HPF (0-3) H Urine Squamous Epithelial Cells None seen /hpf (<5) Urine Bacteria Few /hpf (None Seen) H Urine Mucus Few (None Seen) Urine Glucose Normal mg/dL (Normal) Blood Gas Results Test 05/18/25 06:25 Arterial Blood pH 7.511 (7.350-7.450) FiO2 % 32.0 Labs and/or images reviewed: Labs reviewed by me, Image(s) reviewed by me Assessment/Plan Assessment/Plan Impression: -acute hypoxic respiratory failure -bilateral pulmonary embolus -renal cell carcinoma, with metastasis. Status post craniectomy, chemotherapy -sepsis -complicated cystitis -rule out septic arthritis Plan: -O2 supplementation to keep saturation greater 92% -stop heparin drip, transitioned to subcutaneous Lovenox -continue Meropenem and vancomycin -IV hydration -O2 supplementation to keep saturation greater than 92% -code status: Discussed with the patient his wishes regarding resuscitation. Patient wishes full code status -check ESR, CRP -transferred to telemetry floor -repeat labs in a.m. Total time spent with patient discussing and formulating plan of care: 35 minutes. This medical document was created using an electronic medical record system with [employer] dictation system. Although this document has been carefully reviewed, there may still be some phonetic and typographical errors. These areas are purely typographical due to imperfections of the software programs, and do not reflect any compromise in the patient's medical care. Plan discussed with: Patient, Other (RN) My Orders Orders - JOCELYN WEISS NP Procedure Category Date Status Time Enoxaparin Sodium PHA 05/18/25 Logged (Lovenox) 18:00 Regular Diet DIET 05/18/25 Transmitted Dinner Transfer Orders XFER 05/18/25 Transmitted 16:31 Date of Service: May 18, 2025 Billing Provider: JOCELYN WEISS NP Common Visit Codes: [id number] INP/OBS CARE(HIGH) JOCELYN WEISS NP May 18, 2025 16:41
[2025-05-18] MEDS ORDERED: ONDANSETRON HCL 4 MG/2 ML VIAL IV PRN (16:45)
[2025-05-18] MEDS: ENOXAPARIN SOD 100 MG/1 ML SYRINGE SC SCH (18:37)
[2025-05-18] MEDS: HYDROcodone-ACET 5/325MG TAB PO PRN (21:21)
[2025-05-18] MEDS: VANCOMYCIN 1.25GM/250ML 250 ML IV SCH (21:21)
[2025-05-19] VITALS (15 sets, daily range): BP systolic 119–146; BP diastolic 73–92; PULSE 94–116; RESP 16–20; TEMP 98.1–99.6; O2SAT 90–100
[2025-05-19 06:00] LABS: Hematocrit 28.7 % (41.0-53.0); Hemoglobin 10.0 g/dL (13.5-17.5); Mean Corpuscular Hemoglobin 31.2 pg (28.0-32.0); Mean Corpuscular Volume 89.1 fL (80.0-100.0); Nucleated Red Blood Cells % 0.0 %
[2025-05-19 06:06] LABS: Alanine Aminotransferase 11 U/L (7-40); Alkaline Phosphatase 108 U/L (46-116); Anion Gap 9 (5-15); BUN/Creatinine Ratio 20.7 (10.0-20.0); Bilirubin, Total 0.4 mg/dL (0.2-1.0); Blood Urea Nitrogen 12 mg/dL (9-23); Calcium 8.8 mg/dL (8.7-10.4); Carbon Dioxide 23 mmol/L (20-31); Chloride 101 mmol/L (98-107); Potassium 3.9 mmol/L (3.5-5.1); Total Protein 6.5 g/dL (5.7-8.2)
[2025-05-19 06:09] LABS: Albumin 3.2 g/dL (3.2-4.8); Glucose 123 mg/dL (74-106); Sodium 133 mmol/L (136-145)
--- NOTE | 2025-05-19 12:26 | DVH ---
Indication: rule out Septic joint Technique: CT axial images of the left knee are obtained without contrast. Coronal and sagittal refor mats were obtained. Radiation Dose Information: CTDI volume is 7.75 mGy. Dose-length product is 247 mGy*cm Comparison: None FINDINGS/IMPRESSION: Severe degenerate changes of the left knee. Large left knee suprapatellar effusion measuring at least 6.4 x 3.0 by 5.9 cm. Septic arthritis can n ot be excluded. Recommend fluid sampling/joint aspirate to exclude septic arthritis. No definitive osseous erosion. Enthesopathy at patellar tendon insertion upon the patella and tibial tuberosity. Soft tissue edema/ stranding which could be representing associated cellulitic changes, especially if there is clinical concern for septic arthritis. Tortuous great saphenous vein.
--- NOTE | 2025-05-19 14:54 | DVHPN2 ---
Subjective Patient continues to report having knee pain. Denies having shortness of breath Reviewed: Care Plan, H&P, Labs, Medications Changes from previous H/P or p: No Changes General: Per HPI Objective Vitals Vital Signs Date Time Temp Pulse Resp B/P (MAP) Pulse Ox O2 Delivery O2 Flow Rate FiO2 05/19/25 13:00 98.2 94 20 141/91 (108) 98 98.2 05/19/25 12:00 Room Air* 0 21 Intake/Output Intake and Output 05/19/25 07:00 Intake Total 740 ml Output Total 450 ml Balance 290 ml Intake Oral 0 ml IV Total 740 ml Output Urine Total 450 ml General Appearance: Alert, Oriented X3, Cooperative, mild distress HEENT: Atraumatic, PERRLA Lungs: Clear to auscultation, Normal air movement Cardiovascular: Normal S1, Normal S2 Abdomen: Normal bowel sounds, Soft, No tenderness, No hepatospenomegaly Musculoskeletal: Normal sensory function, Normal motor function Neuro: Normal gait, Normal speech Skin: Dry, Intact Psych/Mental Status: Mental status NL, Mood NL Medications Current Medications Medications Dose Ordered Sig/Trent Route Start Time Stop Time Status Last Admin Dose Admin Acetaminophen 325 mg Q4HP PRN PO 05/18/25 06:15 Morphine Sulfate 2 mg Q4HPRN PRN IV 05/18/25 06:15 05/19/25 10:17 2 MG Sodium Chloride 1,000 ml @ 75 mls/hr [id number] IV 05/18/25 06:15 05/18/25 20:45 75 MLS/HR Vancomycin HCl 0 ml @ 0 mls/hr UD IV 05/18/25 06:15 Meropenem 50 ml @ 17 mls/hr Q8HR IV 05/18/25 14:00 05/19/25 14:40 17 MLS/HR Levalbuterol HCl 0.625 mg Q6HR NEB 05/18/25 12:00 05/19/25 12:00 0.625 MG Ipratropium [place] 0.5 mg Q6HWA NEB 05/18/25 12:00 05/19/25 12:00 0.5 MG Vancomycin HCl 250 ml @ 200 mls/hr Q8H IV 05/18/25 21:00 05/19/25 14:46 200 MLS/HR Enoxaparin Sodium 90 mg Q12HR SC 05/18/25 18:00 05/19/25 10:15 90 MG Acetaminophen/ Hydrocodone [place] 1 tab Q6HPRN PRN PO 05/18/25 16:45 05/18/25 21:21 1 TAB Ondansetron HCl 4 mg Q6HPRN PRN IV 05/18/25 16:45 Laboratory Results Laboratory Tests 05/19/25 05:26 Chemistry Test 05/19/25 05:26 Albumin 3.2 g/dL (3.2-4.8) Calcium Level 8.8 mg/dL (8.7-10.4) Total Protein 6.5 g/dL (5.7-8.2) LFT Test 05/19/25 05:26 Alanine Aminotransferase (ALT) 11 U/L (7-40) Alkaline Phosphatase 108 U/L (46-116) Aspartate Amino Transferase (AST) 20 U/L (13-40) Total Bilirubin 0.4 mg/dL (0.2-1.0) Urinalysis Test 05/18/25 04:50 Urine Color Yellow (Yellow) Urine Clarity Turbid (Clear) H Urine pH 6.0 (5.0-9.0) Urine Specific [place] 1.023 (1.001-1.035) Urine Protein 1+ (Negative) H Urine Ketones 1+ (Negative) H Urine Blood 2+ /uL (Negative) H Urine Nitrite 2+ (Negative) H Urine Bilirubin Negative (Negative) Urine Urobilinogen 3 mg/dL (Negative) H Urine Leukocyte Esterase 3+ /uL (Negative) Urine RBC 22 /hpf (0 - 3) Urine Microscopic WBC 260 /HPF (0-3) H Urine Squamous Epithelial Cells None seen /hpf (<5) Urine Bacteria Few /hpf (None Seen) H Urine Mucus Few (None Seen) Urine Glucose Normal mg/dL (Normal) Microbiology Microbiology Date/Time Source Procedure Growth Status 05/18/25 06:00 Blood Blood Culture - Preliminary Resulted 05/18/25 04:50 Voided Urine Urine Culture - Preliminary Resulted Labs and/or images reviewed: Labs reviewed by me, Image(s) reviewed by me Assessment/Plan Assessment/Plan Impression: -acute hypoxic respiratory failure -bilateral pulmonary embolus -renal cell carcinoma, with metastasis. Status post craniectomy, chemotherapy -sepsis -complicated cystitis -rule out septic arthritis Plan: Events: No events overnight. ESR, CRP elevated. CT scan of left knee reveals large effusion. Ortho consultation placed. Blood culture positive for MRSA, urine culture positive Staph aureus continue current antimicrobial treatment -continue Lovenox -continue Meropenem and vancomycin -IV hydration -O2 supplementation to keep saturation greater than 92% -ppi -pain management -repeat labs in a.m. Total time spent with patient discussing and formulating plan of care: 35 minutes. This medical document was created using an electronic medical record system with [employer] dictation system. Although this document has been carefully reviewed, there may still be some phonetic and typographical errors. These areas are purely typographical due to imperfections of the software programs, and do not reflect any compromise in the patient's medical care. Plan discussed with: Patient, Other (RN) My Orders Orders - JOCELYN WEISS NP Procedure Category Date Status Time Enoxaparin Sodium PHA 05/18/25 In Process (Lovenox) 18:00 Regular Diet DIET 05/18/25 Transmitted Dinner Transfer Orders XFER 05/18/25 Transmitted 16:31 Hydrocodone-Acet PHA 05/18/25 In Process 5/325mg Tab ([place] 16:45 Ondansetron Hcl PHA 05/18/25 In Process (Zofran) 16:45 Education - Smoking CHRISTO 05/18/25 In Process Cessation 18:15 * Smoking Cessation CONS 05/18/25 Transmitted Consult 18:15 * Wallpaper Inspector And Shipper CONS 05/18/25 Transmitted Consult 18:15 Ct L Knee Wo Contrast CT 05/19/25 Resulted 08:37 *Consult Dr. Sharpe CONS 05/19/25 Transmitted [place] 13:03 Basic Metabolic Panel LAB 05/20/25 Verified 04:00 Complete Blood Count LAB 05/20/25 Verified 04:00 Date of Service: May 19, 2025 Billing Provider: JOCELYN WEISS NP Common Visit Codes: [id number] INP/OBS CARE(HIGH) JOCELYN WEISS NP May 19, 2025 14:54
[2025-05-19] MEDS ORDERED: VANCOMYCIN 1.25GM/250ML 250 ML IV SCH (22:15)
[2025-05-20] VITALS (15 sets, daily range): BP systolic 121–143; BP diastolic 79–96; PULSE 100–115; RESP 16–20; TEMP 97.3–99.3; O2SAT 92–100
[2025-05-20] MEDS: VANCOMYCIN 1.25GM/250ML 250 ML IV SCH (04:17)
[2025-05-20 05:09] LABS: Hematocrit 29.6 % (41.0-53.0); Hemoglobin 10.1 g/dL (13.5-17.5); Mean Corpuscular Hemoglobin 30.2 pg (28.0-32.0); Mean Corpuscular Volume 88.7 fL (80.0-100.0); Nucleated Red Blood Cells % 0.1 %
[2025-05-20 05:15] LABS: Anion Gap 10 (5-15); Carbon Dioxide 24 mmol/L (20-31); Chloride 101 mmol/L (98-107); Potassium 3.9 mmol/L (3.5-5.1)
[2025-05-20 05:16] LABS: Calcium 9.0 mg/dL (8.7-10.4); Sodium 135 mmol/L (136-145)
[2025-05-20 05:21] LABS: BUN/Creatinine Ratio 20.3 (10.0-20.0); Blood Urea Nitrogen 12 mg/dL (9-23)
[2025-05-20 05:22] LABS: Glucose 119 mg/dL (74-106)
--- NOTE | 2025-05-20 10:56 | DVHHP2 ---
History Allergies: Coded Allergies: Penicillins (Verified Allergy, Unknown, 03/15/25) Chief Complaint: 49M, admitted on 05/18/25 through [facility] ER for B PE, bacteremia of unclear origin. Orthopaedic consultation for left knee pain, swelling Present Illness(Onset/Duration 49M, significant PMH, renal cell carcinoma with right sided brain metastasis, removal, residual left side (UE/LE) paralysis. Pt noted 2 days of swelling left knee. Admitted with dx of B PE, MRSA bacteremia, no graham sepsis Physical Exam Extremities Left knee , moderate swelling, no warmth, pain with A/PROM 0/5 motor strength L UE, L LE alert/oriented x4 Vital Signs Vital Signs Date Time Temp Pulse Resp B/P (MAP) Pulse Ox O2 Delivery O2 Flow Rate FiO2 05/20/25 08:39 99.0 109 19 136/87 (103) 95 99.0 05/20/25 07:50 Room Air* 0 21 Impressions/Description 49M renal cell CA, ride sided cerebral tumor, excision, residual left side hemiparesis B PE, on lovenox left knee swelling Plan discussed case with treating [employer] DEAN given that patient has stable BP, not frankly septic, very unstable for surgery with B PE, and no clarity that knee is source of MRSA bacteremia, plan is 1) broad spectrum ABX 2) IR aspiration and culture of left knee 3) I will follow and consider left knee arthroscopic lavage if clinical exam warrants. NAIMA PRYOR MD May 20, 2025 10:56
--- NOTE | 2025-05-20 11:52 | DVHPN2 ---
Subjective Patient continues to report having knee pain. Denies having shortness of breath Reviewed: Care Plan, H&P, Labs, Medications Changes from previous H/P or p: No Changes General: Per HPI Objective Vitals Vital Signs Date Time Temp Pulse Resp B/P (MAP) Pulse Ox O2 Delivery O2 Flow Rate FiO2 05/20/25 08:39 99.0 109 19 136/87 (103) 95 99.0 05/20/25 07:50 Room Air* 0 21 Intake/Output Intake and Output 05/20/25 07:00 Intake Total 2100 ml Output Total 2540 ml Balance -440 ml Intake Oral 850 ml IV Total 1250 ml Output Urine Total 2540 ml # Voids 6 # Bowel Movements 3 General Appearance: Alert, Oriented X3, Cooperative, mild distress HEENT: Atraumatic, PERRLA Lungs: Clear to auscultation, Normal air movement Cardiovascular: Normal S1, Normal S2 Abdomen: Normal bowel sounds, Soft, No tenderness, No hepatospenomegaly Musculoskeletal: Normal sensory function, Normal motor function Neuro: Normal gait, Normal speech Skin: Dry, Intact Psych/Mental Status: Mental status NL, Mood NL Medications Current Medications Medications Dose Ordered Sig/Trent Route Start Time Stop Time Status Last Admin Dose Admin Acetaminophen 325 mg Q4HP PRN PO 05/18/25 06:15 Morphine Sulfate 2 mg Q4HPRN PRN IV 05/18/25 06:15 05/20/25 03:19 2 MG Sodium Chloride 1,000 ml @ 75 mls/hr [id number] IV 05/18/25 06:15 05/19/25 22:45 75 MLS/HR Vancomycin HCl 0 ml @ 0 mls/hr UD IV 05/18/25 06:15 Meropenem 50 ml @ 17 mls/hr Q8HR IV 05/18/25 14:00 05/20/25 05:52 17 MLS/HR Levalbuterol HCl 0.625 mg Q6HR NEB 05/18/25 12:00 05/20/25 06:39 0.625 MG Ipratropium [place] 0.5 mg Q6HWA NEB 05/18/25 12:00 05/20/25 06:39 0.5 MG Enoxaparin Sodium 90 mg Q12HR SC 05/18/25 18:00 05/19/25 21:39 90 MG Ondansetron HCl 4 mg Q6HPRN PRN IV 05/18/25 16:45 Vancomycin HCl 250 ml @ 200 mls/hr Q10H IV 05/20/25 04:00 05/20/25 04:17 200 MLS/HR Oxycodone/ Acetaminophen 1 tab Q6HP PRN PO 05/20/25 11:45 UNV Laboratory Results Laboratory Tests 05/20/25 04:46 Chemistry Test 05/20/25 04:46 Calcium Level 9.0 mg/dL (8.7-10.4) Urinalysis Test 05/18/25 04:50 Urine Color Yellow (Yellow) Urine Clarity Turbid (Clear) H Urine pH 6.0 (5.0-9.0) Urine Specific [place] 1.023 (1.001-1.035) Urine Protein 1+ (Negative) H Urine Ketones 1+ (Negative) H Urine Blood 2+ /uL (Negative) H Urine Nitrite 2+ (Negative) H Urine Bilirubin Negative (Negative) Urine Urobilinogen 3 mg/dL (Negative) H Urine Leukocyte Esterase 3+ /uL (Negative) Urine RBC 22 /hpf (0 - 3) Urine Microscopic WBC 260 /HPF (0-3) H Urine Squamous Epithelial Cells None seen /hpf (<5) Urine Bacteria Few /hpf (None Seen) H Urine Mucus Few (None Seen) Urine Glucose Normal mg/dL (Normal) Microbiology Microbiology Date/Time Source Procedure Growth Status 05/18/25 06:00 Blood Blood Culture - Preliminary Resulted 05/18/25 04:50 Voided Urine Urine Culture - Preliminary Resulted Labs and/or images reviewed: Labs reviewed by me, Image(s) reviewed by me Assessment/Plan Assessment/Plan Impression: -acute hypoxic respiratory failure -bilateral pulmonary embolus -renal cell carcinoma, with metastasis. Status post craniectomy, chemotherapy -sepsis -complicated cystitis -rule out septic arthritis -probable MRSA bacteremia Plan: Events: No events overnight. Discussed case with orthopedic surgeon regarding knee effusion. Given bilateral PEs, IR consultation will be placed for left knee aspiration. Lovenox was held this a.m.. -continue Lovenox -continue Meropenem and vancomycin -IV hydration -O2 supplementation to keep saturation greater than 92% -ppi -echocardiogram pending. Patient does report having a history of IV drug use -pain management: Change [place] to Percocet, continue IV morphine -repeat labs in a.m. Total time spent with patient discussing and formulating plan of care: 35 minutes. This medical document was created using an electronic medical record system with [employer] dictation system. Although this document has been carefully reviewed, there may still be some phonetic and typographical errors. These areas are purely typographical due to imperfections of the software programs, and do not reflect any compromise in the patient's medical care. Plan discussed with: Patient, Other (RN) My Orders Orders - JOCELYN WEISS NP Procedure Category Date Status Time *Consult Dr. Sharpe CONS 05/19/25 Transmitted [place] 13:03 * Radiologist Consult CONS 05/20/25 Transmitted 11:34 Basic Metabolic Panel LAB 05/21/25 Verified 04:00 Complete Blood Count LAB 05/21/25 Verified 04:00 Oxycodone W/ Acet PHA 05/20/25 Logged 5/325mg Tab (Percocet 11:45 Date of Service: May 20, 2025 Billing Provider: JOCELYN WEISS NP Common Visit Codes: [id number] INP/OBS CARE(HIGH) JOCELYN WEISS NP May 20, 2025 11:52
[2025-05-20] MEDS: OXYCODONE W/ ACETAMINOPHEN 5/325MG TABLET PO PRN (13:43)
[2025-05-21] VITALS (17 sets, daily range): BP systolic 113–149; BP diastolic 75–95; PULSE 92–117; RESP 18–22; TEMP 97.7–99.7; O2SAT 93–100
[2025-05-21 08:14] LABS: Hematocrit 28.8 % (41.0-53.0); Hemoglobin 9.9 g/dL (13.5-17.5); Mean Corpuscular Hemoglobin 30.1 pg (28.0-32.0); Mean Corpuscular Volume 87.8 fL (80.0-100.0); Nucleated Red Blood Cells % 0.1 %
[2025-05-21 08:23] LABS: Potassium 4.8 mmol/L (3.5-5.1)
[2025-05-21 08:24] LABS: Anion Gap 11 (5-15); Carbon Dioxide 24 mmol/L (20-31)
[2025-05-21 08:29] LABS: BUN/Creatinine Ratio 26.3 (10.0-20.0); Blood Urea Nitrogen 15 mg/dL (9-23); Glucose 100 mg/dL (74-106)
[2025-05-21 08:31] LABS: Calcium 8.7 mg/dL (8.7-10.4); Chloride 98 mmol/L (98-107); Sodium 133 mmol/L (136-145)
--- NOTE | 2025-05-21 18:02 | DVHPN2 ---
Subjective SAME Reviewed: Care Plan, H&P, Labs, Medications, Previous Orders, Radiology Changes from previous H/P or p: No Changes General: Per HPI Objective Vitals Vital Signs Date Time Temp Pulse Resp B/P (MAP) Pulse Ox O2 Delivery O2 Flow Rate FiO2 05/21/25 17:00 98.5 108 20 148/92 (110) 94 98.5 05/21/25 08:50 0.0 05/21/25 08:00 Room Air* 21 Intake/Output Intake and Output 05/21/25 07:00 Intake Total 2000 ml Output Total 1100 ml Balance 900 ml Intake Oral 1700 ml IV Total 300 ml Output Urine Total 1100 ml # Voids 3 # Bowel Movements 1 General Appearance: Alert, Oriented X3, Cooperative HEENT: Atraumatic Lungs: Clear to auscultation, Normal air movement Cardiovascular: Other (TACHYCARDIA) Abdomen: Normal bowel sounds, Soft, No tenderness Medications Current Medications Medications Dose Ordered Sig/Trent Route Start Time Stop Time Status Last Admin Dose Admin Acetaminophen 325 mg Q4HP PRN PO 05/18/25 06:15 Morphine Sulfate 2 mg Q4HPRN PRN IV 05/18/25 06:15 05/21/25 14:36 2 MG Sodium Chloride 1,000 ml @ 75 mls/hr [id number] IV 05/18/25 06:15 05/21/25 14:34 75 MLS/HR Vancomycin HCl 0 ml @ 0 mls/hr UD IV 05/18/25 06:15 Meropenem 50 ml @ 17 mls/hr Q8HR IV 05/18/25 14:00 05/21/25 15:22 17 MLS/HR Levalbuterol HCl 0.625 mg Q6HR NEB 05/18/25 12:00 05/21/25 12:11 0.625 MG Ipratropium [place] 0.5 mg Q6HWA NEB 05/18/25 12:00 05/21/25 12:11 0.5 MG Enoxaparin Sodium 90 mg Q12HR SC 05/18/25 18:00 05/21/25 09:56 90 MG Ondansetron HCl 4 mg Q6HPRN PRN IV 05/18/25 16:45 Oxycodone/ Acetaminophen 1 tab Q6HP PRN PO 05/20/25 11:45 05/21/25 05:19 1 TAB Vancomycin HCl 250 ml @ 250 mls/hr Q12H IV 05/22/25 00:00 Laboratory Results Laboratory Tests 05/21/25 06:48 Chemistry Test 05/21/25 06:48 Calcium Level 8.7 mg/dL (8.7-10.4) Urinalysis Test 05/18/25 04:50 Urine Color Yellow (Yellow) Urine Clarity Turbid (Clear) H Urine pH 6.0 (5.0-9.0) Urine Specific [place] 1.023 (1.001-1.035) Urine Protein 1+ (Negative) H Urine Ketones 1+ (Negative) H Urine Blood 2+ /uL (Negative) H Urine Nitrite 2+ (Negative) H Urine Bilirubin Negative (Negative) Urine Urobilinogen 3 mg/dL (Negative) H Urine Leukocyte Esterase 3+ /uL (Negative) Urine RBC 22 /hpf (0 - 3) Urine Microscopic WBC 260 /HPF (0-3) H Urine Squamous Epithelial Cells None seen /hpf (<5) Urine Bacteria Few /hpf (None Seen) H Urine Mucus Few (None Seen) Urine Glucose Normal mg/dL (Normal) Microbiology Microbiology Date/Time Source Procedure Growth Status 05/20/25 21:55 Nose MRSA Screen - Final Complete 05/18/25 06:00 Blood Blood Culture - Final Methicillin Resistant S.aureus Complete 05/18/25 04:50 Voided Urine Urine Culture - Final Methicillin Resistant S.aureus Complete Assessment/Plan Assessment/Plan Bilateral PE Acute respiratory failure UTI/cystitis and sepsis and MRSA bacteremia Sinus tachycardia Renal cancer with metastasis of the brain status post right brain surgery Left knee arthritis/questionable septic arthritis/ Chronic history of left knee pain for many years per the patient Plan: EKG. Blood culture. Possible knee aspiration by Radiology. Continue IV antibiotics. Further plan per orders Plan discussed with: Patient, Other (Nursing) Date of Service: May 21, 2025 Billing Provider: VERA MCMAHON MD Common Visit Codes: [id number] INP/OBS CARE(HIGH) VERA MCMAHON MD May 21, 2025 18:02
[2025-05-22] VITALS (14 sets, daily range): BP systolic 116–135; BP diastolic 90–110; PULSE 89–120; RESP 16–20; TEMP 97.7–98.3; O2SAT 93–100
[2025-05-22] MEDS: ACETAMINOPHEN 325 MG TAB PO PRN (00:48)
[2025-05-22] MEDS: VANCOMYCIN 1GM/250ML KIT 250 ML IV SCH (00:50)
[2025-05-22 11:24] LABS: Alanine Aminotransferase 23 U/L (7-40); Albumin 3.3 g/dL (3.2-4.8); Alkaline Phosphatase 110 U/L (46-116); Anion Gap 9 (5-15); BUN/Creatinine Ratio 14.5 (10.0-20.0); Bilirubin, Total 0.4 mg/dL (0.2-1.0); Calcium 9.9 mg/dL (8.7-10.4); Carbon Dioxide 25 mmol/L (20-31); Glucose 100 mg/dL (74-106); Potassium 4.0 mmol/L (3.5-5.1); Total Protein 7.1 g/dL (5.7-8.2)
[2025-05-22 11:25] LABS: Blood Urea Nitrogen 8 mg/dL (9-23); Chloride 97 mmol/L (98-107); Sodium 131 mmol/L (136-145)
--- NOTE | 2025-05-22 15:28 | DVHPN2 ---
Subjective SAME Reviewed: Care Plan, H&P, Labs, Medications, Previous Orders, Radiology Changes from previous H/P or p: No Changes General: Per HPI Objective Vitals Vital Signs Date Time Temp Pulse Resp B/P (MAP) Pulse Ox O2 Delivery O2 Flow Rate FiO2 05/22/25 11:47 120 18 100 05/22/25 11:41 Room Air* 0 21 05/22/25 09:00 98.2 116/110 (112) 98.2 Intake/Output Intake and Output 05/22/25 07:00 Intake Total 900 ml Output Total 600 ml Balance 300 ml Intake Oral 900 ml Output Urine Total 600 ml # Voids 7 General Appearance: Alert, Oriented X3, Cooperative HEENT: Atraumatic Lungs: Clear to auscultation, Normal air movement Cardiovascular: Other (TACHYCARDIA) Abdomen: Normal bowel sounds, Soft, No tenderness Medications Current Medications Medications Dose Ordered Sig/Trent Route Start Time Stop Time Status Last Admin Dose Admin Acetaminophen 325 mg Q4HP PRN PO 05/18/25 06:15 05/22/25 10:21 325 MG Morphine Sulfate 2 mg Q4HPRN PRN IV 05/18/25 06:15 05/21/25 14:36 2 MG Sodium Chloride 1,000 ml @ 75 mls/hr [id number] IV 05/18/25 06:15 05/22/25 03:35 75 MLS/HR Vancomycin HCl 0 ml @ 0 mls/hr UD IV 05/18/25 06:15 Meropenem 50 ml @ 17 mls/hr Q8HR IV 05/18/25 14:00 05/22/25 06:25 17 MLS/HR Levalbuterol HCl 0.625 mg Q6HR NEB 05/18/25 12:00 05/22/25 11:41 0.625 MG Ipratropium [place] 0.5 mg Q6HWA NEB 05/18/25 12:00 05/22/25 11:41 0.5 MG Enoxaparin Sodium 90 mg Q12HR SC 05/18/25 18:00 05/22/25 10:21 90 MG Ondansetron HCl 4 mg Q6HPRN PRN IV 05/18/25 16:45 Oxycodone/ Acetaminophen 1 tab Q6HP PRN PO 05/20/25 11:45 05/21/25 20:52 1 TAB Vancomycin HCl 250 ml @ 250 mls/hr Q12H IV 05/22/25 00:00 05/22/25 12:00 250 MLS/HR Laboratory Results Laboratory Tests 05/21/25 06:48 05/22/25 10:05 Chemistry Test 05/22/25 10:05 Albumin 3.3 g/dL (3.2-4.8) Calcium Level 9.9 mg/dL (8.7-10.4) Total Protein 7.1 g/dL (5.7-8.2) LFT Test 05/22/25 10:05 Alanine Aminotransferase (ALT) 23 U/L (7-40) Alkaline Phosphatase 110 U/L (46-116) Aspartate Amino Transferase (AST) 32 U/L (13-40) Total Bilirubin 0.4 mg/dL (0.2-1.0) Urinalysis Test 05/18/25 04:50 Urine Color Yellow (Yellow) Urine Clarity Turbid (Clear) H Urine pH 6.0 (5.0-9.0) Urine Specific [place] 1.023 (1.001-1.035) Urine Protein 1+ (Negative) H Urine Ketones 1+ (Negative) H Urine Blood 2+ /uL (Negative) H Urine Nitrite 2+ (Negative) H Urine Bilirubin Negative (Negative) Urine Urobilinogen 3 mg/dL (Negative) H Urine Leukocyte Esterase 3+ /uL (Negative) Urine RBC 22 /hpf (0 - 3) Urine Microscopic WBC 260 /HPF (0-3) H Urine Squamous Epithelial Cells None seen /hpf (<5) Urine Bacteria Few /hpf (None Seen) H Urine Mucus Few (None Seen) Urine Glucose Normal mg/dL (Normal) Microbiology Microbiology Date/Time Source Procedure Growth Status 05/20/25 21:55 Nose MRSA Screen - Final Complete 05/18/25 06:00 Blood Blood Culture - Final Methicillin Resistant S.aureus Complete 05/18/25 04:50 Voided Urine Urine Culture - Final Methicillin Resistant S.aureus Complete Assessment/Plan Assessment/Plan Bilateral PE Acute respiratory failure UTI/cystitis and sepsis and MRSA bacteremia Sinus tachycardia Renal cancer with metastasis of the brain status post right brain surgery Left knee arthritis/questionable septic arthritis/ Chronic history of left knee pain for many years per the patient Plan: Possible knee aspiration by Radiology. Continue IV antibiotics with vancomycin and meropenem Further plan per orders Plan discussed with: Patient My Orders Orders - VERA MCMAHON MD Procedure Category Date Status Time Electrocardigram EKG 05/21/25 Logged 18:02 Blood Culture [place] 05/21/25 In Process 18:03 Rheumatoid Arthritis LAB 05/21/25 In Process [place] 18:03 Date of Service: May 22, 2025 Billing Provider: VERA MCMAHON MD Common Visit Codes: [id number] INP/OBS CARE(HIGH) VERA MCMAHON MD May 22, 2025 15:28
[2025-05-23] VITALS (17 sets, daily range): BP systolic 119–151; BP diastolic 76–98; PULSE 83–124; RESP 14–20; TEMP 97.5–98.9; O2SAT 94–100
[2025-05-23 06:26] LABS: Hematocrit 29.9 % (41.0-53.0); Hemoglobin 10.2 g/dL (13.5-17.5); Mean Corpuscular Hemoglobin 30.1 pg (28.0-32.0); Mean Corpuscular Volume 88.1 fL (80.0-100.0); Nucleated Red Blood Cells % 0.0 %
--- NOTE | 2025-05-23 07:47 | ECG ---
[facility] Test Date: 2025-05-22 Test Time: 10:17:03 Pat Name: IRENE SHRESTHA Department: Respiratoy Room: 0237T A Gender: M Welfare Officer: GERARDO : 1975 Requested By: VERA MCMAHON Order Number: [id number] Reading MD: Malcom Villar Measurements Intervals [place] Rate: 114 P: -75 NM: 160 QRS: 231 QRSD: 89 T: -83 QT: 296 QTc: 408 Interpretive Statements Ectopic atrial tachycardia, unifocal Anterolateral infarct, old Electronically Signed On 05-26-2025 21:07:04 PDT by Malcom Villar Please click the below link to view image of tracing.
--- NOTE | 2025-05-23 10:26 | DVHPN2 ---
Subjective Patient continues to report having knee pain. Denies having shortness of breath Reviewed: Care Plan, H&P, Labs, Medications, Previous Orders, Radiology Changes from previous H/P or p: No Changes General: Per HPI Objective Vitals Vital Signs Date Time Temp Pulse Resp B/P (MAP) Pulse Ox O2 Delivery O2 Flow Rate FiO2 05/23/25 08:47 97.5 83 14 151/94 (113) 95 97.5 05/23/25 08:05 Room Air* 0 21 Intake/Output Intake and Output 05/23/25 07:00 Intake Total 1615 ml Balance 1615 ml Intake Oral 1265 ml IV Total 350 ml # Voids 7 # Bowel Movements 1 General Appearance: Alert, Oriented X3, Cooperative HEENT: Atraumatic Lungs: Clear to auscultation, Normal air movement Cardiovascular: Other (TACHYCARDIA) Abdomen: Normal bowel sounds, Soft, No tenderness Skin: Dry, Intact Medications Current Medications Medications Dose Ordered Sig/Trent Route Start Time Stop Time Status Last Admin Dose Admin Acetaminophen 325 mg Q4HP PRN PO 05/18/25 06:15 05/22/25 10:21 325 MG Morphine Sulfate 2 mg Q4HPRN PRN IV 05/18/25 06:15 05/21/25 14:36 2 MG Sodium Chloride 1,000 ml @ 75 mls/hr [id number] IV 05/18/25 06:15 05/23/25 06:15 75 MLS/HR Vancomycin HCl 0 ml @ 0 mls/hr UD IV 05/18/25 06:15 Meropenem 50 ml @ 17 mls/hr Q8HR IV 05/18/25 14:00 05/23/25 06:00 17 MLS/HR Levalbuterol HCl 0.625 mg Q6HR NEB 05/18/25 12:00 05/23/25 05:30 0.625 MG Ipratropium [place] 0.5 mg Q6HWA NEB 05/18/25 12:00 05/23/25 05:30 0.5 MG Enoxaparin Sodium 90 mg Q12HR SC 05/18/25 18:00 05/23/25 09:39 90 MG Ondansetron HCl 4 mg Q6HPRN PRN IV 05/18/25 16:45 Oxycodone/ Acetaminophen 1 tab Q6HP PRN PO 05/20/25 11:45 05/22/25 22:40 1 TAB Vancomycin HCl 250 ml @ 250 mls/hr Q12H IV 05/22/25 00:00 05/23/25 00:00 250 MLS/HR Laboratory Results Laboratory Tests 05/22/25 10:05 05/23/25 05:19 Urinalysis Test 05/18/25 04:50 Urine Color Yellow (Yellow) Urine Clarity Turbid (Clear) H Urine pH 6.0 (5.0-9.0) Urine Specific [place] 1.023 (1.001-1.035) Urine Protein 1+ (Negative) H Urine Ketones 1+ (Negative) H Urine Blood 2+ /uL (Negative) H Urine Nitrite 2+ (Negative) H Urine Bilirubin Negative (Negative) Urine Urobilinogen 3 mg/dL (Negative) H Urine Leukocyte Esterase 3+ /uL (Negative) Urine RBC 22 /hpf (0 - 3) Urine Microscopic WBC 260 /HPF (0-3) H Urine Squamous Epithelial Cells None seen /hpf (<5) Urine Bacteria Few /hpf (None Seen) H Urine Mucus Few (None Seen) Urine Glucose Normal mg/dL (Normal) Microbiology Microbiology Date/Time Source Procedure Growth Status 05/21/25 18:39 Blood Blood Culture - Preliminary NO GROWTH AFTER 24 HOURS OF INCUBATION. Resulted 05/20/25 21:55 Nose MRSA Screen - Final Complete 05/18/25 04:50 Voided Urine Urine Culture - Final Methicillin Resistant S.aureus Complete Labs and/or images reviewed: Labs reviewed by me, Image(s) reviewed by me Assessment/Plan Assessment/Plan Impression: -acute hypoxic respiratory failure -bilateral pulmonary embolus -renal cell carcinoma, with metastasis. Status post craniectomy, chemotherapy -sepsis -complicated cystitis -rule out septic arthritis -probable MRSA bacteremia Plan: Events: No events overnight. Echo pending. S/P right knee aspiration. Await culture. May require NEGRO -continue Lovenox -continue Meropenem and vancomycin -IV hydration -O2 supplementation to keep saturation greater than 92% -ppi -echocardiogram pending. Patient does report having a history of IV drug use -pain management: Change [place] to Percocet, continue IV morphine -repeat labs in a.m. Total time spent with patient discussing and formulating plan of care: 35 minutes. This medical document was created using an electronic medical record system with [employer] computerized dictation system. Although this document has been carefully reviewed, there may still be some phonetic and typographical errors. These areas are purely typographical due to imperfections of the software programs, and do not reflect any compromise in the patient's medical care. Plan discussed with: Patient, Other (RN) My Orders Orders - JOCELYN WEISS NP Procedure Category Date Status Time Us Guidance For US 05/23/25 Taken Needle [place] Date of Service: May 23, 2025 Billing Provider: JOCELYN WEISS NP Common Visit Codes: [id number] INP/OBS CARE(HIGH) JOCELYN WEISS NP May 23, 2025 10:26
--- NOTE | 2025-05-23 14:01 | DVH ---
US US GUIDANCE FOR NEEDLE PLACEME, HISTORY: KNEE ASPIRATION LT PROCEDURE: An informed consent was obtained. The patient was placed supine on the gurney. The suspici ous left knee fluid collection was localized with ultrasound and the overlying skin prepped with chlo rhexidine which was allowed to dry and draped in the usual sterile fashion. Time out was performed an d infiltrated with 1% Xylocaine. With US guidance, a 19-gauge centesis needle catheter was advanced i nto the fluid collection. Small amount was aspirated for appropriate microbiology/cytology/microbiolo gy and cytology analysis. Approximately 20 cc of argenis joint fluid was aspirated. No immediate compl ication was identified. FINDINGS: Limited US scan of through the left knee demonstrates a joint effusion. The collection danyell ears multi-loculated. IMPRESSION: US guided left knee arthrocentesis with 20 mL removed.
--- NOTE | 2025-05-23 14:51 | MEDREC ---
[facility] Intervention Section I [facility] Intervention: Review courses of therapy (Patient has no history of ESBL, may consider de-escalating meropenem if/when clinically appropriate. ) RADHA WELDON [facility] May 23, 2025 14:51
[2025-05-23] MEDS ORDERED: VANCOMYCIN 1.25GM/250ML 250 ML IV SCH (15:00)
[2025-05-23] MEDS: VANCOMYCIN 1.25GM/250ML 250 ML IV SCH (18:44)
[2025-05-24] VITALS (13 sets, daily range): BP systolic 105–150; BP diastolic 71–88; PULSE 10–112; RESP 16–20; TEMP 97.4–98.1; O2SAT 90–100
--- NOTE | 2025-05-24 10:14 | DVHPN2 ---
Subjective Patient continues to report having knee pain. Denies having shortness of breath Reviewed: Care Plan, H&P, Labs, Medications, Previous Orders, Radiology Changes from previous H/P or p: No Changes General: Per HPI Objective Vitals Vital Signs Date Time Temp Pulse Resp B/P (MAP) Pulse Ox O2 Delivery O2 Flow Rate FiO2 05/24/25 09:00 97.8 111 17 127/85 (99) 95 97.8 05/24/25 08:12 0.0 05/24/25 07:50 Room Air* 21 Intake/Output Intake and Output 05/24/25 06:59 Intake Total 1070 ml Output Total 600 ml Balance 470 ml Intake Oral 970 ml IV Total 100 ml Output Urine Total 600 ml # Voids 5 # Bowel Movements 1 General Appearance: Alert, Oriented X3, Cooperative HEENT: Atraumatic Lungs: Clear to auscultation, Normal air movement Cardiovascular: Other (TACHYCARDIA) Abdomen: Normal bowel sounds, Soft, No tenderness Skin: Dry, Intact Psych/Mental Status: Mental status NL, Mood NL Medications Current Medications Medications Dose Ordered Sig/Trent Route Start Time Stop Time Status Last Admin Dose Admin Acetaminophen 325 mg Q4HP PRN PO 05/18/25 06:15 05/22/25 10:21 325 MG Morphine Sulfate 2 mg Q4HPRN PRN IV 05/18/25 06:15 05/21/25 14:36 2 MG Sodium Chloride 1,000 ml @ 75 mls/hr [id number] IV 05/18/25 06:15 05/23/25 06:15 75 MLS/HR Vancomycin HCl 0 ml @ 0 mls/hr UD IV 05/18/25 06:15 Meropenem 50 ml @ 17 mls/hr Q8HR IV 05/18/25 14:00 05/23/25 13:59 17 MLS/HR Levalbuterol HCl 0.625 mg Q6HR NEB 05/18/25 12:00 05/24/25 07:05 0.625 MG Ipratropium [place] 0.5 mg Q6HWA NEB 05/18/25 12:00 05/24/25 07:05 0.5 MG Enoxaparin Sodium 90 mg Q12HR SC 05/18/25 18:00 05/24/25 09:02 90 MG Ondansetron HCl 4 mg Q6HPRN PRN IV 05/18/25 16:45 Oxycodone/ Acetaminophen 1 tab Q6HP PRN PO 05/20/25 11:45 05/23/25 21:01 1 TAB Vancomycin HCl 250 ml @ 200 mls/hr Q12H IV 05/23/25 17:00 05/23/25 18:44 200 MLS/HR Laboratory Results Laboratory Tests 05/22/25 10:05 05/23/25 05:19 05/24/25 05:10 Urinalysis Test 05/18/25 04:50 Urine Color Yellow (Yellow) Urine Clarity Turbid (Clear) H Urine pH 6.0 (5.0-9.0) Urine Specific [place] 1.023 (1.001-1.035) Urine Protein 1+ (Negative) H Urine Ketones 1+ (Negative) H Urine Blood 2+ /uL (Negative) H Urine Nitrite 2+ (Negative) H Urine Bilirubin Negative (Negative) Urine Urobilinogen 3 mg/dL (Negative) H Urine Leukocyte Esterase 3+ /uL (Negative) Urine RBC 22 /hpf (0 - 3) Urine Microscopic WBC 260 /HPF (0-3) H Urine Squamous Epithelial Cells None seen /hpf (<5) Urine Bacteria Few /hpf (None Seen) H Urine Mucus Few (None Seen) Urine Glucose Normal mg/dL (Normal) Microbiology Microbiology Date/Time Source Procedure Growth Status 05/21/25 18:39 Blood Blood Culture - Preliminary NO GROWTH AFTER 48 HOURS OF INCUBATION. Resulted 05/20/25 21:55 Nose MRSA Screen - Final Complete 05/18/25 04:50 Voided Urine Urine Culture - Final Methicillin Resistant S.aureus Complete Labs and/or images reviewed: Labs reviewed by me, Image(s) reviewed by me Assessment/Plan Assessment/Plan Impression: -acute hypoxic respiratory failure -bilateral pulmonary embolus -renal cell carcinoma, with metastasis. Status post craniectomy, chemotherapy -sepsis -complicated cystitis -rule out septic arthritis -probable MRSA bacteremia Plan: Events: No events overnight. Echo pending. S/P right knee aspiration WBC 15,250 -continue Lovenox -continue Meropenem and vancomycin -Stop IVG -O2 supplementation to keep saturation greater than 92% -PUD prophylaxis -echocardiogram pending. Patient does report having a history of IV drug use -pain management: Continue Percocet -repeat labs in a.m. Total time spent with patient discussing and formulating plan of care: 35 minutes. This medical document was created using an electronic medical record system with [employer] dictation system. Although this document has been carefully reviewed, there may still be some phonetic and typographical errors. These areas are purely typographical due to imperfections of the software programs, and do not reflect any compromise in the patient's medical care. Plan discussed with: Patient, Other (RN) Date of Service: May 24, 2025 Billing Provider: JOCEYLN WEISS NP Common Visit Codes: [id number] INP/OBS CARE(HIGH) JOCELYN WEISS NP May 24, 2025 10:14
[2025-05-24] MEDS: VANCOMYCIN 1.25GM/250ML 250 ML IV SCH (17:44)
[2025-05-25] VITALS (14 sets, daily range): BP systolic 117–132; BP diastolic 82–98; PULSE 101–117; RESP 18–20; TEMP 97.2–98.2; O2SAT 94–100
[2025-05-25] MEDS: LEVALBUTEROL HCL 1.25 MG/3 ML NEB NEB SCH (06:25)
--- NOTE | 2025-05-25 07:53 | ECG ---
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
--- NOTE | 2025-05-25 12:16 | DVHPN2 ---
Subjective Reports being anxious Reviewed: Care Plan, H&P, Labs, Medications, Previous Orders, Radiology Changes from previous H/P or p: Changes General: Per HPI Objective Vitals Vital Signs Date Time Temp Pulse Resp B/P (MAP) Pulse Ox O2 Delivery O2 Flow Rate FiO2 05/25/25 09:00 97.6 110 20 125/84 (98) 97 97.6 05/25/25 08:00 Room Air* 0 21 Intake/Output Intake and Output 05/25/25 07:00 Intake Total 1000 ml Output Total 950 ml Balance 50 ml Intake Oral 950 ml IV Total 50 ml Output Urine Total 950 ml # Voids 5 # Bowel Movements 1 General Appearance: Alert, Oriented X3, Cooperative HEENT: Atraumatic, PERRLA Lungs: Clear to auscultation, Normal air movement Cardiovascular: Other (TACHYCARDIA) Abdomen: Normal bowel sounds, Soft, No tenderness Skin: Dry, Intact Psych/Mental Status: Mental status NL, Mood NL Medications Current Medications Medications Dose Ordered Sig/Trent Route Start Time Stop Time Status Last Admin Dose Admin Acetaminophen 325 mg Q4HP PRN PO 05/18/25 06:15 05/22/25 10:21 325 MG Morphine Sulfate 2 mg Q4HPRN PRN IV 05/18/25 06:15 05/21/25 14:36 2 MG Vancomycin HCl 0 ml @ 0 mls/hr UD IV 05/18/25 06:15 Ipratropium [place] 0.5 mg Q6HWA NEB 05/18/25 12:00 05/25/25 06:25 0.5 MG Enoxaparin Sodium 90 mg Q12HR SC 05/18/25 18:00 05/25/25 09:55 90 MG Ondansetron HCl 4 mg Q6HPRN PRN IV 05/18/25 16:45 Oxycodone/ Acetaminophen 1 tab Q6HP PRN PO 05/20/25 11:45 05/25/25 00:20 1 TAB Vancomycin HCl 250 ml @ 200 mls/hr Q12H IV 05/24/25 18:00 05/25/25 05:47 200 MLS/HR Levalbuterol HCl 0.625 mg Q6HWA NEB 05/25/25 06:00 05/25/25 06:25 0.625 MG Ceftriaxone Sodium 50 ml @ 100 mls/hr DAILY@09 IV 05/25/25 09:00 Laboratory Results Laboratory Tests 05/22/25 10:05 05/23/25 05:19 05/25/25 04:57 Urinalysis Test 05/18/25 04:50 Urine Color Yellow (Yellow) Urine Clarity Turbid (Clear) H Urine pH 6.0 (5.0-9.0) Urine Specific [place] 1.023 (1.001-1.035) Urine Protein 1+ (Negative) H Urine Ketones 1+ (Negative) H Urine Blood 2+ /uL (Negative) H Urine Nitrite 2+ (Negative) H Urine Bilirubin Negative (Negative) Urine Urobilinogen 3 mg/dL (Negative) H Urine Leukocyte Esterase 3+ /uL (Negative) Urine RBC 22 /hpf (0 - 3) Urine Microscopic WBC 260 /HPF (0-3) H Urine Squamous Epithelial Cells None seen /hpf (<5) Urine Bacteria Few /hpf (None Seen) H Urine Mucus Few (None Seen) Urine Glucose Normal mg/dL (Normal) Microbiology Microbiology Date/Time Source Procedure Growth Status 05/23/25 10:00 Aspirate Gram Stain - Final Resulted 05/23/25 10:00 Aspirate Body Fluid Culture - Preliminary Resulted 05/21/25 18:39 Blood Blood Culture - Preliminary NO GROWTH AFTER 72 HOURS OF INCUBATION. Resulted 05/20/25 21:55 Nose MRSA Screen - Final Complete 05/18/25 04:50 Voided Urine Urine Culture - Final Methicillin Resistant S.aureus Complete Labs and/or images reviewed: Labs reviewed by me, Image(s) reviewed by me Assessment/Plan Assessment/Plan Impression: -acute hypoxic respiratory failure -bilateral pulmonary embolus -renal cell carcinoma, with metastasis. Status post craniectomy, chemotherapy -sepsis -complicated cystitis -rule out septic arthritis -probable MRSA bacteremia Plan: Events: No events overnight. Echo pending. S/P right knee aspiration WBC 15,250. No growth from right knee aspirate. -Cardiology consult for NEGRO. -continue Lovenox -Stop meropenem, continue vancomycin, start Rocephin -O2 supplementation to keep saturation greater than 92% -PUD prophylaxis -echocardiogram pending. Patient does report having a history of IV drug use -pain management: Continue Percocet -repeat labs in a.m. Total time spent with patient discussing and formulating plan of care: 35 minutes. This medical document was created using an electronic medical record system with [employer] dictation system. Although this document has been carefully reviewed, there may still be some phonetic and typographical errors. These areas are purely typographical due to imperfections of the software programs, and do not reflect any compromise in the patient's medical care. Plan discussed with: Patient, Other (RN) My Orders Orders - JOCELYN WEISS NP Procedure Category Date Status Time Ceftriaxone 1gm/50ml PHA 05/25/25 In Process (Rocephin) 09:00 * Cardiology Consult CONS 05/25/25 Transmitted 11:50 Date of Service: May 25, 2025 Billing Provider: JOCELYN WEISS NP Common Visit Codes: [id number] INP/OBS CARE(HIGH) JOCELYN WEISS NP May 25, 2025 12:16
--- NOTE | 2025-05-25 15:48 | DVHINCON2 ---
Date Seen: May 25, 2025 Referring Physician JUSTIN Domingo Reason for Consultation Assess for NEGRO given MRSA blood History of Present Illness This is a 49-year-old man who presented to the emergency room with a chief complaint of left knee pain and swelling. The patient underwent a left knee a rthrocentesis with 20 mL removed with a preliminary culture not showing organisms. Given positive blood cultures with MRSA, primary care team is consulted Cardiology to rule out subacute endocarditis. The patient denies any IV drug use or recent dental procedures. Presents with a Port-A-Cath for where he receives chemotherapy. Significant medical history includes renal cell car cinoma stage IV with metastasis including to the brain for which the patient underwent a craniotomy and undergoes chemotherapy as well as tobacco/cannabinoid use. Past Medical History Past medical history reviewed. No other significant than mentioned above. Past Surgical History Craniotomy Port-A-Cath Family History: Patient reports no known family medical history. Family History Family history reviewed. Social History Denies the use of intravenous drugs or alcohol. Allergies: Coded Allergies: Penicillins (Verified Allergy, Unknown, 03/15/25) Home Meds No Active Prescriptions or Reported Meds Home Meds Patient unable to recall home medications. Current Medications Current Medications Medications (Trade) Dose Ordered Sig/Trent Route PRN Reason Start Time Stop Time Status Last Admin Vancomycin HCl 250 ml @ 200 mls/hr Q12H IV 05/24/25 18:00 05/25/25 05:47 Levalbuterol HCl (Xopenex Medneb) 0.625 mg Q6HWA NEB 05/25/25 06:00 05/25/25 12:34 Ceftriaxone Sodium 50 ml @ 100 mls/hr DAILY@09 IV 05/25/25 09:00 Alprazolam (Xanax Tablet) 0.25 mg Q8HP PRN PO ANXIETY 05/25/25 12:30 Review of Systems Constitutional: No symptom reported Ears, Nose, & Throat: No symptom reported Eyes: No symptom reported Neurological: No symptoms reported Pulmonary/Respiratory: No symptom reported Cardiovascular: No symptom reported Gastrointestinal: No symptom reported Genitourinary: No symptom reported Musculoskeletal: No symptom reported Skin: No symptom reported Psychiatric: No symptom reported Endocrine: No symptom reported Hemotologic/Lymphatic: No symptom reported Vital Signs Vital Signs Date Time Temp Pulse Resp B/P (MAP) Pulse Ox O2 Delivery O2 Flow Rate FiO2 05/25/25 12:40 104 18 100 05/25/25 12:34 Room Air 0.0 05/25/25 12:34 21 05/25/25 12:24 97.8 121/89 (100) 97.8 Physical Exam General Appearance: Cooperative. Well developed. Well nourished. In no acute distress Head Exam: Normal inspection Neck Exam: Normal inspection. Non-tender. Normal alignment Pulmonary/Respiratory: Chest non-tender. Clear bilateral breath sounds Cardiovascular/Chest: Regular rate and rhythm. S1, S2. Sinus tachycardia. No murmurs. No JVD. Peripheral Pulses: 2+ Radial (R). 2+ Radial (L). 2+ Pedal (R). 2+ Pedal (L) Abdominal Exam: Normal bowel sounds. Soft. Ankle Exam: Negative ankle edema Lower extremities: Negative lower extremity edema Neuro/Mental Status: A&O x4. Coherent Thoughts/Psych: Normal thought pattern. Appropriate mood and affect. Rambling thoughts, anxious Appearance: In no acute distress Skin Exam: Normal inspection. Normal color. Warm. Dry Labs/Diagnostic Data Labs Test 05/25/25 04:57 05/23/25 10:55 05/23/25 10:00 05/23/25 05:19 Range/Units Creatinine 0.49 L 0.700-1.30 mg/dL Glomerular Filtration Rate Calc 127 >90 mL/min Vancomycin Level Trough 14.0 H 5-10 ug/mL Body Fluid Source Joint fluid Body Fluid pH 9.0 Body Fluid WBC (Manual) 61998 H 0-200 CUMM Body Fluid RBC (Manual) 71402 H 0-2000 CUMM Body Fluid Mononuclear Cells 20 % Body Fluid Polymorphonuclear Cells 80 H 0-25 % White Blood Count 8.8 4.4-10.8 10^3/uL Red Blood Count 3.40 L 4.5-5.90 10^6/uL Hemoglobin 10.2 L 13.5-17.5 g/dL Hematocrit 29.9 L 41.0-53.0 % Mean Corpuscular Volume 88.1 80.0-100.0 fL Mean Corpuscular Hemoglobin 30.1 28.0-32.0 pg Mean Corpuscular Hemoglobin Concent 34.2 32.0-36.0 g/dL Red Cell Distribution Width 16.1 H 11.8-14.3 % Platelet Count 683 H 140-450 10^3/uL Mean Platelet Volume 6.9 6.9-10.8 fL Neutrophils (%) (Auto) 74.1 37.0-80.0 % Lymphocytes (%) (Auto) 15.9 10.0-50.0 % Monocytes (%) (Auto) 8.4 0.0-12.0 % Eosinophils (%) (Auto) 0.7 0.0-7.0 % Basophils (%) (Auto) 0.9 0.0-2.0 % Neutrophils # (Auto) 6.6 1.6-8.6 10 ^3/uL Lymphocytes # (Auto) 1.4 0.4-5.4 10 ^3/uL Monocytes # (Auto) 0.7 0-1.3 10 ^3/uL Eosinophils # (Auto) 0.1 0-0.8 10 ^3/uL Basophils # (Auto) 0.1 0-0.2 10 ^3/uL Nucleated Red Blood Cells 0.0 % Test 05/22/25 10:05 05/21/25 18:39 05/20/25 00:21 05/18/25 12:56 Range/Units Erythrocyte Sedimentation Rate 113 H 0-20 mm/hr Sodium Level 131 L 136-145 mmol/L Potassium Level 4.0 3.5-5.1 mmol/L Chloride Level 97 L 98-107 mmol/L Carbon Dioxide Level 25 20-31 mmol/L Anion Gap 9 5-15 Blood Urea Nitrogen 8 L 9-23 mg/dL BUN/Creatinine Ratio 14.5 10.0-20.0 Serum Glucose 100 74-106 mg/dL Calcium Level 9.9 8.7-10.4 mg/dL Total Bilirubin 0.4 0.2-1.0 mg/dL Aspartate Amino Transferase (AST) 32 13-40 U/L Alanine Aminotransferase (ALT) 23 7-40 U/L Alkaline Phosphatase 110 46-116 U/L Total Protein 7.1 5.7-8.2 g/dL Albumin 3.3 3.2-4.8 g/dL Uric Acid 2.7 L 3.7-9.2 mg/dL Rheumatoid Factor 13.4 <14.0 IU/mL Random Vancomycin Level 13.3 H 5-10 ug/mL Prothrombin Time 12.2 H 9.3-11.8 sec Prothrombin Time INR 1.17 H 0.9-1.15 Activated Partial Thromboplast Time 38.0 H 24.5-34.5 SEC Test 05/18/25 09:17 05/18/25 06:25 05/18/25 05:50 05/18/25 04:50 Range/Units Influenza Type A Antigen Negative Negative Influenza Type B Antigen Negative Negative SARS-CoV-2 Antigen (Rapid) Negative NEGATIVE Blood Gas Specimen Type Arterial Blood Gas Sample Site Left radial Blood Gas Patient Temperature 37.0 Arterial Blood Date Drawn [id number] Arterial Blood pH 7.511 H 7.350-7.450 Arterial Blood Partial Pressure CO2 27.5 L 35.0-48.0 mmHg Arterial Blood Partial Pressure O2 85.8 83.0-108.0 mmHg Arterial Blood HCO3 21.5 21.0-28.0 mmol/L Arterial Blood Oxygen Saturation 96.3 94.0-98.0 % Arterial Blood Base Excess -0.6 -2.0-3.0 mmol/L Arterial Blood Oxyhemoglobin 95.2 94.0-98.0 % Arterial Blood Carboxyhemoglobin 0.5 0.5-1.5 % Arterial Blood Methemoglobin 0.6 0.0-1.5 % Yeison Test Modified Blood Gas Total Hemoglobin 11.00 L 13.5-17.5 g/dL Blood Gas Liter Flow 3.00 Blood Gas Modality Nasal cannula FiO2 % 32.0 Lactic Acid Level 1.1 0.4-2.0 mmol/L Troponin I High Sensitivity 38 </=54 ng/L C-Reactive Protein High Sensitivity > 20.00 H <1.0 mg/dL Urine Color Yellow Yellow Urine Clarity Turbid H Clear Urine pH 6.0 5.0-9.0 Urine Specific [place] 1.023 1.001-1.035 Urine Protein 1+ H Negative Urine Ketones 1+ H Negative Urine Blood 2+ H Negative /uL Urine Nitrite 2+ H Negative Urine Bilirubin Negative Negative Urine Urobilinogen 3 H Negative mg/dL Urine Leukocyte Esterase 3+ Negative /uL Urine RBC 22 0 - 3 /hpf Urine Microscopic WBC 260 H 0-3 /HPF Urine Squamous Epithelial Cells None seen <5 /hpf Urine Bacteria Few H None Seen /hpf Urine Mucus Few None Seen Urine Glucose Normal Normal mg/dL Urine Opiates Screen Pos NEGATIVE Urine Fentanyl Screen Neg NEGATIVE Urine Barbiturates Screen Neg NEGATIVE Urine Phencyclidine Screen Neg NEGATIVE Urine Amphetamines Screen Neg NEGATIVE Urine Benzodiazepines Screen Pos NEGATIVE Urine Cocaine Screen Neg NEGATIVE Urine Cannabinoids Screen Pos NEGATIVE Test 05/18/25 03:04 Range/Units D-Dimer, Quantitative 14.23 H 0.0-0.49 mg/L FEU B-Type Natriuretic Peptide 53.70 0-100 pg/mL Thyroid Stimulating Hormone (TSH) 1.55 0.55-4.78 uIU/mL Free Thyroxine (T4) Calculated 1.45 0.89-1.76 ng/dL Microbiology Date/Time Source Procedure Growth Status 05/23/25 10:00 Aspirate Gram Stain - Final Resulted 05/23/25 10:00 Aspirate Body Fluid Culture - Preliminary Resulted 05/21/25 18:39 Blood Blood Culture - Preliminary NO GROWTH AFTER 72 HOURS OF INCUBATION. Resulted 05/20/25 21:55 Nose MRSA Screen - Final Complete 05/18/25 04:50 Voided Urine Urine Culture - Final Methicillin Resistant S.aureus Complete Assessment MRSA bacteremia rule out subacute endocarditis Bilateral pulmonary emboli Renal cell carcinoma with metastasis and chemotherapy History of recent craniotomy Tobacco/cannabinoid use Plan/Recommendation (Dr. Villar) Scheduled for a transesophageal echocardiogram with Dr. Villar at first available. All risks and benefits of the procedure were discussed with the patient who agrees to proceed with intervention. All questions answered. In the meantime, continue therapeutic Lovenox and ABX therapy per primary care team. In the setting of an unremarkable NEGRO, there is no further cardiac workup indicated at this time. Thank you for allowing us to participate in this patient's care. Please call if you have any questions or concerns. This medical document was created using an electronic medical record system with voice recognition software and computerized dictation system. Although this document has been carefully reviewed, there might still be some phonetic and typographical errors. Occasional wrong-word or ``sound-alike substitutions may have occurred due to the inherent limitations of voice recognition software. These areas are purely typographical due to imperfections of the software programs and do not reflect any compromise in the patient's medical care. Please read the chart carefully and recognize, using context, where these substitutions have occurred. Plan discussed with: Patient, Other NYHA Physical activity limitations: NA Date of Service: May 25, 2025 Billing Provider: VIC BOOKER [employer] Cardiology Common Codes: [id number] INP/OBS CARE (High) [facility]ER [facility] May 25, 2025 15:48
[2025-05-25] MEDS: ALPRAZolam 0.25 MG TAB PO PRN (16:07)
[2025-05-26] VITALS (15 sets, daily range): BP systolic 105–143; BP diastolic 81–93; PULSE 100–123; RESP 17–20; TEMP 97.4–99; O2SAT 89–100
[2025-05-26] MEDS: VANCOMYCIN 1.5GM/250ML 250 ML IV SCH (11:18)
--- NOTE | 2025-05-26 11:50 | DVHPN2 ---
Subjective Reports being anxious Reviewed: Care Plan, H&P, Labs, Medications, Previous Orders, Radiology Changes from previous H/P or p: No Changes General: Per HPI Objective Vitals Vital Signs Date Time Temp Pulse Resp B/P (MAP) Pulse Ox O2 Delivery O2 Flow Rate FiO2 05/26/25 09:41 97.5 100 17 143/93 (110) 98 97.5 05/26/25 07:05 Room Air* 0 21 Intake/Output Intake and Output 05/26/25 07:00 Intake Total 2050 ml Output Total 1600 ml Balance 450 ml Intake Oral 1000 ml IV Total 1050 ml Output Urine Total 1600 ml # Voids 2 General Appearance: Alert, Oriented X3, Cooperative HEENT: Atraumatic, PERRLA Lungs: Clear to auscultation, Normal air movement Cardiovascular: Other (TACHYCARDIA) Abdomen: Normal bowel sounds, Soft, No tenderness Skin: Dry, Intact Psych/Mental Status: Mental status NL, Mood NL Medications Current Medications Medications Dose Ordered Sig/Trent Route Start Time Stop Time Status Last Admin Dose Admin Acetaminophen 325 mg Q4HP PRN PO 05/18/25 06:15 05/22/25 10:21 325 MG Morphine Sulfate 2 mg Q4HPRN PRN IV 05/18/25 06:15 05/21/25 14:36 2 MG Vancomycin HCl 0 ml @ 0 mls/hr UD IV 05/18/25 06:15 Ipratropium [place] 0.5 mg Q6HWA [facility] 05/18/25 12:00 05/26/25 06:59 0.5 MG Enoxaparin Sodium 90 mg Q12HR SC 05/18/25 18:00 05/26/25 11:11 90 MG Ondansetron HCl 4 mg Q6HPRN PRN IV 05/18/25 16:45 Oxycodone/ Acetaminophen 1 tab Q6HP PRN PO 05/20/25 11:45 05/26/25 04:41 1 TAB Levalbuterol HCl 0.625 mg Q6HWA NEB 05/25/25 06:00 05/26/25 06:59 0.625 MG Ceftriaxone Sodium 50 ml @ 100 mls/hr DAILY@09 IV 05/25/25 09:00 05/25/25 16:07 100 MLS/HR Alprazolam 0.25 mg Q8HP PRN PO 05/25/25 12:30 05/25/25 16:07 0.25 MG Vancomycin HCl 250 ml @ 166.667 mls/hr Q8H IV 05/26/25 10:00 05/26/25 11:18 166.667 MLS/HR Laboratory Results Laboratory Tests 05/22/25 10:05 05/23/25 05:19 05/26/25 05:20 Urinalysis Test 05/18/25 04:50 Urine Color Yellow (Yellow) Urine Clarity Turbid (Clear) H Urine pH 6.0 (5.0-9.0) Urine Specific [place] 1.023 (1.001-1.035) Urine Protein 1+ (Negative) H Urine Ketones 1+ (Negative) H Urine Blood 2+ /uL (Negative) H Urine Nitrite 2+ (Negative) H Urine Bilirubin Negative (Negative) Urine Urobilinogen 3 mg/dL (Negative) H Urine Leukocyte Esterase 3+ /uL (Negative) Urine RBC 22 /hpf (0 - 3) Urine Microscopic WBC 260 /HPF (0-3) H Urine Squamous Epithelial Cells None seen /hpf (<5) Urine Bacteria Few /hpf (None Seen) H Urine Mucus Few (None Seen) Urine Glucose Normal mg/dL (Normal) Microbiology Microbiology Date/Time Source Procedure Growth Status 05/23/25 10:00 Aspirate Gram Stain - Final Resulted 05/23/25 10:00 Aspirate Body Fluid Culture - Preliminary Resulted 05/21/25 18:39 Blood Blood Culture - Preliminary NO GROWTH AFTER 72 HOURS OF INCUBATION. Resulted 05/20/25 21:55 Nose MRSA Screen - Final Complete 05/18/25 04:50 Voided Urine Urine Culture - Final Methicillin Resistant S.aureus Complete Labs and/or images reviewed: Labs reviewed by me, Image(s) reviewed by me Assessment/Plan Assessment/Plan Impression: -acute hypoxic respiratory failure -bilateral pulmonary embolus -renal cell carcinoma, with metastasis. Status post craniectomy, chemotherapy -sepsis -complicated cystitis -rule out septic arthritis -probable MRSA bacteremia Plan: Events: No events overnight. Plans for NEGRO today. Left knee continues to have effusion. Re-evaluate with ultrasound -Cardiology consult for NEGRO. -continue Lovenox -Stop meropenem, continue vancomycin, start Rocephin -O2 supplementation to keep saturation greater than 92% -PUD prophylaxis -echocardiogram pending. Patient does report having a history of IV drug use -pain management: Continue Percocet -repeat labs in a.m. Total time spent with patient discussing and formulating plan of care: 35 minutes. This medical document was created using an electronic medical record system with [employer] dictation system. Although this document has been carefully reviewed, there may still be some phonetic and typographical errors. These areas are purely typographical due to imperfections of the software programs, and do not reflect any compromise in the patient's medical care. Plan discussed with: Patient, Other (RN) My Orders Orders - JOCELYN WEISS NP Procedure Category Date Status Time * Cardiology Consult CONS 05/25/25 Transmitted 11:50 Alprazolam Tablet PHA 05/25/25 In Process (Xanax Tablet) 12:30 Erythrocyte LAB 05/26/25 Verified Sedimentation Rate 11:46 C-Reactive Protein LAB 05/26/25 Verified 11:46 Left Lower Extremity US 05/26/25 Verified Ultrasoun 11:46 Date of Service: May 26, 2025 Billing Provider: JOCELYN WEISS NP Common Visit Codes: [id number] INP/OBS CARE(HIGH) JOCELYN WEISS NP May 26, 2025 11:50
--- NOTE | 2025-05-26 12:51 | DVH ---
Exam: US LEFT LOWER EXTREMITY ULTRASOUN Date: 05/26/2025 12:25 PM Clinical History: recurrent knee effusion Comparison: CT CT L KNEE WO CONTRAST on DOS: 05/19/25, US BILAT LOWER DVT on DOS: 05/18/25 Technique: Targeted sonographic evaluation of the soft tissues of the left knee was obtained utilizing grayscale and color Doppler imaging. Findings/Impression: Small left knee joint effusion.
[2025-05-26] MEDS: MIDAZOLAM HCL 2MG/2ML 2ml VIAL (1mg/ml) IV ONE (13:00)
[2025-05-26] MEDS: LIDOCAINE VISCOUS 2% 15ML UD PO ONE (13:00)
[2025-05-26] MEDS: fentaNYL CITRATE 100 MCG/2 ML VL IV ONE (13:00)
--- NOTE | 2025-05-26 18:04 | DVHOP2 ---
Operative Report - 2 Report Details Date: 05/26/25 Preop Diagnosis: Possible endocarditis Postop Diagnosis: Normal transesophageal echocardiogram Surgeon: Chen Villar MD Anesthesiologist: Conscious sedation Anesthesia: Mac Consent: The patient was informed of the risks and benefits of the procedure. These include but are not limited to complications of anesthesia, postoperative infection, incomplete relief of symptoms, recurrence of symptoms, damage to blood vessels, nerves and tendons, deep venous thrombosis, pulmonary embolism and possible need for repeat surgery in the future. Complications: No complications Findings: Normal transesophageal echocardiogram Indications for Surgery: Fevers chills an abnormal blood cultures Name of Procedure Performed Transesophageal echocardiogram Procedure Details Procedure Details: Prior full informed consent obtained the patient was prepped and draped in usual fashion. Placed in left lateral and semi-Quintero position the patient had lidocaine gel to gargle and conscious sedation given. Transesophageal probe was passed without difficulty. Standard views obtained. Conclusions: Technically good study. The patient is in a sinus rhythm. Normal chamber sizes. Valves appear to be structurally normal. The aortic is trileaflet. The mitral tricuspid and pulmonic normal. Left ventricular systolic performance is preserved at 60% with normal RV function. Doppler reveals no atrial or ventricular septal defects. Normal flow patterns. Trace mitral insufficiency with mild tricuspid regurgitation. No intra-atrial shunting. No ventricular septal defect. No intracardiac masses thrombi under vegetations discernible. The atrial appendage is clean. There are no vegetations on the mitral tricuspid or aortic leaflets. The pulmonic structurally normal. No pericardial effusion apparent. Bubble study performed shows no crossover into the left side. The aorta descending and at the root are within normal limits. Condition Good Disposition Still a Patient Date of Service: May 26, 2025 Billing Provider: CHEN VILLAR Sr., MD Cardiology Common Codes: [id number] INP/OBS CARE (High) Cardiology Procedure Codes: [id number]-[id number] W/IMG DOC INCL PROB ACQ CHEN VILLAR Sr., MD May 26, 2025 18:03
[2025-05-27] VITALS (12 sets, daily range): BP systolic 107–121; BP diastolic 48–73; PULSE 106–118; RESP 16–20; TEMP 97.5–98.9; O2SAT 95–100
--- NOTE | 2025-05-27 09:24 | DVHPN2 ---
Subjective Reports being anxious Reviewed: Care Plan, H&P, Labs, Medications, Previous Orders, Radiology Changes from previous H/P or p: No Changes General: Per HPI Objective Vitals Vital Signs Date Time Temp Pulse Resp B/P (MAP) Pulse Ox O2 Delivery O2 Flow Rate FiO2 05/27/25 09:00 97.5 113 18 112/69 (83) 98 97.5 05/27/25 08:12 0.0 21 05/27/25 07:34 Room Air* Intake/Output Intake and Output 05/27/25 07:00 Intake Total 1225 ml Output Total 950 ml Balance 275 ml Intake Oral 1225 ml Output Urine Total 950 ml # Voids 1 # Bowel Movements 1 General Appearance: Alert, Oriented X3, Cooperative HEENT: Atraumatic, PERRLA Lungs: Clear to auscultation, Normal air movement Cardiovascular: Other (TACHYCARDIA) Abdomen: Normal bowel sounds, Soft, No tenderness Skin: Dry, Intact Psych/Mental Status: Mental status NL, Mood NL Medications Current Medications Medications Dose Ordered Sig/Trent Route Start Time Stop Time Status Last Admin Dose Admin Acetaminophen 325 mg Q4HP PRN PO 05/18/25 06:15 05/26/25 21:56 325 MG Morphine Sulfate 2 mg Q4HPRN PRN IV 05/18/25 06:15 05/21/25 14:36 2 MG Vancomycin HCl 0 ml @ 0 mls/hr UD IV 05/18/25 06:15 Ipratropium [place] 0.5 mg Q6HWA NEB 05/18/25 12:00 05/27/25 07:34 0.5 MG Enoxaparin Sodium 90 mg Q12HR SC 05/18/25 18:00 05/26/25 21:36 90 MG Ondansetron HCl 4 mg Q6HPRN PRN IV 05/18/25 16:45 Oxycodone/ Acetaminophen 1 tab Q6HP PRN PO 05/20/25 11:45 05/26/25 19:37 1 TAB Levalbuterol HCl 0.625 mg Q6HWA NEB 05/25/25 06:00 05/27/25 07:34 0.625 MG Ceftriaxone Sodium 50 ml @ 100 mls/hr DAILY@09 IV 05/25/25 09:00 05/25/25 16:07 100 MLS/HR Alprazolam 0.25 mg Q8HP PRN PO 05/25/25 12:30 05/25/25 16:07 0.25 MG Vancomycin HCl 250 ml @ 166.667 mls/hr Q8H IV 05/26/25 10:00 05/27/25 02:20 166.667 MLS/HR Laboratory Results Laboratory Tests 05/22/25 10:05 05/23/25 05:19 05/26/25 05:20 Urinalysis Test 05/18/25 04:50 Urine Color Yellow (Yellow) Urine Clarity Turbid (Clear) H Urine pH 6.0 (5.0-9.0) Urine Specific [place] 1.023 (1.001-1.035) Urine Protein 1+ (Negative) H Urine Ketones 1+ (Negative) H Urine Blood 2+ /uL (Negative) H Urine Nitrite 2+ (Negative) H Urine Bilirubin Negative (Negative) Urine Urobilinogen 3 mg/dL (Negative) H Urine Leukocyte Esterase 3+ /uL (Negative) Urine RBC 22 /hpf (0 - 3) Urine Microscopic WBC 260 /HPF (0-3) H Urine Squamous Epithelial Cells None seen /hpf (<5) Urine Bacteria Few /hpf (None Seen) H Urine Mucus Few (None Seen) Urine Glucose Normal mg/dL (Normal) Microbiology Microbiology Date/Time Source Procedure Growth Status 05/23/25 10:00 Aspirate Gram Stain - Final Resulted 05/23/25 10:00 Aspirate Body Fluid Culture - Preliminary Resulted 05/21/25 18:39 Blood Blood Culture - Final NO GROWTH AFTER 5 DAYS OF INCUBATION. Complete 05/20/25 21:55 Nose MRSA Screen - Final Complete 05/18/25 04:50 Voided Urine Urine Culture - Final Methicillin Resistant S.aureus Complete Labs and/or images reviewed: Labs reviewed by me, Image(s) reviewed by me Assessment/Plan Assessment/Plan Impression: -acute hypoxic respiratory failure -bilateral pulmonary embolus -renal cell carcinoma, with metastasis. Status post craniectomy, chemotherapy -sepsis -complicated cystitis -rule out septic arthritis -probable MRSA bacteremia Plan: Events: No events overnight. Reconsult Orthopedic surgery regarding results of left knee aspirate. -amparo results reviewed. No signs of endocarditis -continue Lovenox -continue Rocephin and vancomycin -O2 supplementation to keep saturation greater than 92% -PUD prophylaxis -pain management: Continue Percocet, morphine for breakthrough pain Total time spent with patient discussing and formulating plan of care: 35 minutes. This medical document was created using an electronic medical record system with [employer] dictation system. Although this document has been carefully reviewed, there may still be some phonetic and typographical errors. These areas are purely typographical due to imperfections of the software programs, and do not reflect any compromise in the patient's medical care. Plan discussed with: Patient, Other (RN) My Orders Orders - JOCELYN WEISS NP Procedure Category Date Status Time Left Lower Extremity US 05/26/25 Resulted Ultrasoun 11:46 Complete Blood Count LAB 05/27/25 Logged 08:39 Basic Metabolic Panel LAB 05/27/25 Logged 08:39 * Orthopedic Consult CONS 05/27/25 Transmitted 08:39 Date of Service: May 27, 2025 Billing Provider: JOCELYN WEISS NP Common Visit Codes: [id number] INP/OBS CARE(HIGH) JOCELYN WEISS NP May 27, 2025 09:24
[2025-05-27 10:47] LABS: Hemoglobin 9.0 g/dL (13.5-17.5)
[2025-05-27 10:50] LABS: Hematocrit 26.6 % (41.0-53.0); Mean Corpuscular Hemoglobin 30.3 pg (28.0-32.0); Mean Corpuscular Volume 89.7 fL (80.0-100.0); Nucleated Red Blood Cells % 0.1 %
[2025-05-27 10:52] LABS: Chloride 102 mmol/L (98-107); Potassium 3.9 mmol/L (3.5-5.1); Sodium 138 mmol/L (136-145)
[2025-05-27 10:53] LABS: Anion Gap 11 (5-15); Carbon Dioxide 25 mmol/L (20-31)
[2025-05-27 10:54] LABS: Calcium 10.0 mg/dL (8.7-10.4)
[2025-05-27 10:59] LABS: BUN/Creatinine Ratio 23.1 (10.0-20.0); Blood Urea Nitrogen 12 mg/dL (9-23); Glucose 111 mg/dL (74-106)
--- NOTE | 2025-05-27 11:20 | DVHPN2 ---
Progress Note Date Seen: May 27, 2025 Medical Necessity Reason Pt with a Central, PICC or Fol: No Subjective Patient reports: No new complaints Objective vital signs Vital Sign Date Time Temp Pulse Resp B/P (MAP) Pulse Ox O2 Delivery O2 Flow Rate FiO2 05/27/25 09:00 97.5 113 18 112/69 (83) 98 97.5 05/27/25 08:12 0.0 21 05/27/25 07:34 Room Air* Total Intake and Output 05/26/25 05/26/25 05/27/25 15:00 23:00 07:00 Intake Total 325 ml 900 ml Output Total 950 ml Balance -625 ml 900 ml medications Current Medications Medications Dose Ordered Sig/Trent Route Start Time Stop Time Status Last Admin Dose Admin Acetaminophen 325 mg Q4HP PRN PO 05/18/25 06:15 05/26/25 21:56 325 MG Vancomycin HCl 0 ml @ 0 mls/hr UD IV 05/18/25 06:15 Ipratropium [place] 0.5 mg Q6HWA NEB 05/18/25 12:00 05/27/25 07:34 0.5 MG Enoxaparin Sodium 90 mg Q12HR SC 05/18/25 18:00 05/27/25 09:49 90 MG Ondansetron HCl 4 mg Q6HPRN PRN IV 05/18/25 16:45 Oxycodone/ Acetaminophen 1 tab Q6HP PRN PO 05/20/25 11:45 05/27/25 09:50 1 TAB Levalbuterol HCl 0.625 mg Q6HWA NEB 05/25/25 06:00 05/27/25 07:34 0.625 MG Ceftriaxone Sodium 50 ml @ 100 mls/hr DAILY@09 IV 05/25/25 09:00 05/27/25 09:48 100 MLS/HR Alprazolam 0.25 mg Q8HP PRN PO 05/25/25 12:30 05/25/25 16:07 0.25 MG Vancomycin HCl 250 ml @ 166.667 mls/hr Q8H IV 05/26/25 10:00 05/27/25 02:20 166.667 MLS/HR Morphine Sulfate 2 mg Q8HPRN PRN IV 05/27/25 10:15 Examination: GENERAL:Normal, MSK:Abnormal (mild left knee swelling, muscle atrophy noted with weakness, full passive range of motion, no erythema or open wounds noted) laboratory and microbiology Laboratory Tests 05/27/25 10:25 Test 05/27/25 10:25 Range/Units Serum Glucose Pending Microbiology Date/Time Source Procedure Growth Status 05/23/25 10:00 Aspirate Gram Stain - Final Resulted 05/23/25 10:00 Aspirate Body Fluid Culture - Preliminary Resulted 05/21/25 18:39 Blood Blood Culture - Final NO GROWTH AFTER 5 DAYS OF INCUBATION. Complete 05/20/25 21:55 Nose MRSA Screen - Final Complete 05/18/25 04:50 Voided Urine Urine Culture - Final Methicillin Resistant S.aureus Complete Problem List/Assessment/Plan Problem List/Assessment/Plan 49 year old male with BL PE and MRSA bacteremia Lengthy discussion held with the patient regarding the present condition. Based on clinical presentation and preliminary aspiration results patient is aware that surgery is not indicated at this time. We did discuss possible I&D of the left knee if any changes in aspiration or symptoms. Risks, benefits and alternatives discussed and patient admits that he hopes to avoid surgery however if it becomes indicated he accepts the risks. 1. pain control 2. continue with abx and ongoing medical management 3. CBC, Vital signs, physical exam and aspiration prelim results reviewed with Dr. Byrd 4. Can consider repeat of left knee aspiration with radiology if concerns for septic arthritis persist 5. If final results from aspiration show any growth will re-consider need for left knee irrigation and debridement Plan discussed with: Patient Dietary Evaluation Review Recommendations by RD: Protein Supplementation Comments: 1) Initiate Ensure High Protein bid 2) Encourage optimal PO intake 3) Follow-up with oncology and orthopedic surgeon 4) Continue to monitor I&O, labs, and skin integrity Expected Outcomes/Goals: 1) appetite and labs to improve 2) f/u in 3-5 days Date of Service: May 27, 2025 Billing Provider: JAMIL BYRD MD Common Visit Codes: NOT BILLABLE JOSE E SHEA NP May 27, 2025 11:20
[2025-05-27] MEDS: MORPHINE SULFATE 4 MG/ML SYR/VIAL IV PRN (12:58)
[2025-05-28] VITALS (16 sets, daily range): BP systolic 106–127; BP diastolic 68–87; PULSE 95–113; RESP 16–20; TEMP 97.5–97.9; O2SAT 94–100
[2025-05-28 05:07] LABS: Mean Corpuscular Hemoglobin 29.3 pg (28.0-32.0); Nucleated Red Blood Cells % 0.1 %
[2025-05-28 05:11] LABS: Hematocrit 26.3 % (41.0-53.0); Hemoglobin 8.8 g/dL (13.5-17.5); Mean Corpuscular Volume 88.0 fL (80.0-100.0)
--- NOTE | 2025-05-28 10:19 | DVHPN2 ---
Subjective Patient has body aches Reviewed: Care Plan, H&P, Labs, Medications, Previous Orders, Radiology Changes from previous H/P or p: Changes General: Per HPI Objective Vitals Vital Signs Date Time Temp Pulse Resp B/P (MAP) Pulse Ox O2 Delivery O2 Flow Rate FiO2 05/28/25 09:29 107 18 116/70 05/28/25 08:47 97.9 95 97.9 05/28/25 06:00 Room Air 05/28/25 06:00 0 21 Intake/Output Intake and Output 05/28/25 07:00 Intake Total 1200 ml Output Total 800 ml Balance 400 ml Intake Oral 1200 ml Output Urine Total 800 ml # Bowel Movements 3 General Appearance: Alert, Oriented X3, Cooperative HEENT: Atraumatic, PERRLA Lungs: Clear to auscultation, Normal air movement Cardiovascular: Other (TACHYCARDIA) Abdomen: Normal bowel sounds, Soft, No tenderness Skin: Dry, Intact Psych/Mental Status: Mental status NL, Mood NL Medications Current Medications Medications Dose Ordered Sig/Trent Route Start Time Stop Time Status Last Admin Dose Admin Acetaminophen 325 mg Q4HP PRN PO 05/18/25 06:15 05/26/25 21:56 325 MG Vancomycin HCl 0 ml @ 0 mls/hr UD IV 05/18/25 06:15 Ipratropium [place] 0.5 mg Q6HWA NEB 05/18/25 12:00 05/28/25 05:57 0.5 MG Enoxaparin Sodium 90 mg Q12HR SC 05/18/25 18:00 05/28/25 09:35 90 MG Ondansetron HCl 4 mg Q6HPRN PRN IV 05/18/25 16:45 Oxycodone/ Acetaminophen 1 tab Q6HP PRN PO 05/20/25 11:45 05/27/25 20:14 1 TAB Levalbuterol HCl 0.625 mg Q6HWA NEB 05/25/25 06:00 05/28/25 05:57 0.625 MG Ceftriaxone Sodium 50 ml @ 100 mls/hr DAILY@09 IV 05/25/25 09:00 05/28/25 09:35 100 MLS/HR Alprazolam 0.25 mg Q8HP PRN PO 05/25/25 12:30 05/25/25 16:07 0.25 MG Morphine Sulfate 2 mg Q8HPRN PRN IV 05/27/25 10:15 05/28/25 09:29 2 MG Laboratory Results Laboratory Tests 05/27/25 10:25 05/28/25 04:43 Chemistry Test 05/27/25 10: Calcium Level 10.0 mg/dL (8.7-10.4) Urinalysis Test 05/18/25 04:50 Urine Color Yellow (Yellow) Urine Clarity Turbid (Clear) H Urine pH 6.0 (5.0-9.0) Urine Specific [place] 1.023 (1.001-1.035) Urine Protein 1+ (Negative) H Urine Ketones 1+ (Negative) H Urine Blood 2+ /uL (Negative) H Urine Nitrite 2+ (Negative) H Urine Bilirubin Negative (Negative) Urine Urobilinogen 3 mg/dL (Negative) H Urine Leukocyte Esterase 3+ /uL (Negative) Urine RBC 22 /hpf (0 - 3) Urine Microscopic WBC 260 /HPF (0-3) H Urine Squamous Epithelial Cells None seen /hpf (<5) Urine Bacteria Few /hpf (None Seen) H Urine Mucus Few (None Seen) Urine Glucose Normal mg/dL (Normal) Microbiology Microbiology Date/Time Source Procedure Growth Status 05/23/25 10:00 Aspirate Gram Stain - Final Resulted 05/23/25 10:00 Aspirate Body Fluid Culture - Preliminary Resulted 05/21/25 18:39 Blood Blood Culture - Final NO GROWTH AFTER 5 DAYS OF INCUBATION. Complete 05/20/25 21:55 Nose MRSA Screen - Final Complete 05/18/25 04:50 Voided Urine Urine Culture - Final Methicillin Resistant S.aureus Complete Labs and/or images reviewed: Labs reviewed by me, Image(s) reviewed by me Assessment/Plan Assessment/Plan Impression: -acute hypoxic respiratory failure -bilateral pulmonary embolus -renal cell carcinoma, with metastasis. Status post craniectomy, chemotherapy -sepsis -complicated cystitis -rule out septic arthritis -probable MRSA bacteremia Plan: Events: Recommendations by Orthopedic surgery reviewed. No surgical intervention at this time. Patient will be transitioned from Lovenox to Eliquis. Discussed with the patient the plan to wait for final cultures of left knee aspirate prior to discharge. -start Eliquis -continue Rocephin and vancomycin -O2 supplementation to keep saturation greater than 92% -PUD prophylaxis -pain management: Continue Percocet, morphine for breakthrough pain Total time spent with patient discussing and formulating plan of care: 35 minutes. This medical document was created using an electronic medical record system with [employer] dictation system. Although this document has been carefully reviewed, there may still be some phonetic and typographical errors. These areas are purely typographical due to imperfections of the software programs, and do not reflect any compromise in the patient's medical care. Plan discussed with: Patient, Other (RN) Date of Service: May 28, 2025 Billing Provider: JOCELYN WEISS NP Common Visit Codes: [id number] INP/OBS CARE(HIGH) JOCELYN WEISS NP May 28, 2025 10:19
[2025-05-28] MEDS ORDERED: APIX5TAB PO (10:23)
[2025-05-28] MEDS ORDERED: CLIN-203 PO (10:23)
[2025-05-28] MEDS ORDERED: PERCOT PO (10:23)
[2025-05-28] MEDS: VANCOMYCIN 1.25GM/250ML 250 ML IV SCH (15:43)
[2025-05-28] MEDS: APIXABAN 5 MG TAB PO SCH (22:02)
[2025-05-29] VITALS (12 sets, daily range): BP systolic 119–142; BP diastolic 67–90; PULSE 72–114; RESP 18; TEMP 97.7–98.4; O2SAT 94–100
--- NOTE | 2025-05-29 10:55 | DVHDS2 ---
Discharge Summary Date of Admission May 18, 2025 at 06:03 Date of Discharge: May 29, 2025 Admitting Diagnosis Acute respiratory failure Labs/Diagnostic Data: Laboratory Results Test 05/28/25 04:43 05/27/25 10:25 05/26/25 05:20 05/23/25 10:00 White Blood Count 6.2 10^3/uL (4.4-10.8) Red Blood Count 2.99 10^6/uL (4.5-5.90) Hemoglobin 8.8 g/dL (13.5-17.5) Hematocrit 26.3 % (41.0-53.0) Mean Corpuscular Volume 88.0 fL (80.0-100.0) Mean Corpuscular Hemoglobin 29.3 pg (28.0-32.0) Mean Corpuscular Hemoglobin Concent 33.3 g/dL (32.0-36.0) Red Cell Distribution Width 16.1 % (11.8-14.3) Platelet Count 716 10^3/uL (140-450) Mean Platelet Volume 6.4 fL (6.9-10.8) Neutrophils (%) (Auto) 66.7 % (37.0-80.0) Lymphocytes (%) (Auto) 20.3 % (10.0-50.0) Monocytes (%) (Auto) 10.8 % (0.0-12.0) Eosinophils (%) (Auto) 0.9 % (0.0-7.0) Basophils (%) (Auto) 1.3 % (0.0-2.0) Neutrophils # (Auto) 4.2 10 ^3/uL (1.6-8.6) Lymphocytes # (Auto) 1.3 10 ^3/uL (0.4-5.4) Monocytes # (Auto) 0.7 10 ^3/uL (0-1.3) Eosinophils # (Auto) 0.1 10 ^3/uL (0-0.8) Basophils # (Auto) 0.1 10 ^3/uL (0-0.2) Nucleated Red Blood Cells 0.1 % Creatinine 0.63 mg/dL (0.700-1.30) Glomerular Filtration Rate Calc 118 mL/min (>90) Random Vancomycin Level 8.0 ug/mL (5-10) Sodium Level 138 mmol/L (136-145) Potassium Level 3.9 mmol/L (3.5-5.1) Chloride Level 102 mmol/L (98-107) Carbon Dioxide Level 25 mmol/L (20-31) Anion Gap 11 (5-15) Blood Urea Nitrogen 12 mg/dL (9-23) BUN/Creatinine Ratio 23.1 (10.0-20.0) Serum Glucose 111 mg/dL (74-106) Calcium Level 10.0 mg/dL (8.7-10.4) Vancomycin Level Trough 23.0 ug/mL (5-10) Erythrocyte Sedimentation Rate 120 mm/hr (0-20) C-Reactive Protein High Sensitivity 11.32 mg/dL (<1.0) Body Fluid Source Joint fluid Body Fluid pH 9.0 Body Fluid WBC (Manual) 66796 CUMM (0-200) Body Fluid RBC (Manual) 21391 CUMM (0-2000) Body Fluid Mononuclear Cells 20 % Body Fluid Polymorphonuclear Cells 80 % (0-25) Test 05/22/25 10:05 05/21/25 18:39 05/18/25 12:56 05/18/25 09:17 Total Bilirubin 0.4 mg/dL (0.2-1.0) Aspartate Amino Transferase (AST) 32 U/L (13-40) Alanine Aminotransferase (ALT) 23 U/L (7-40) Alkaline Phosphatase 110 U/L (46-116) Total Protein 7.1 g/dL (5.7-8.2) Albumin 3.3 g/dL (3.2-4.8) Uric Acid 2.7 mg/dL (3.7-9.2) Rheumatoid Factor 13.4 IU/mL (<14.0) Prothrombin Time 12.2 sec (9.3-11.8) Prothrombin Time INR 1.17 (0.9-1.15) Activated Partial Thromboplast Time 38.0 SEC (24.5-34.5) Influenza Type A Antigen Negative (Negative) Influenza Type B Antigen Negative (Negative) SARS-CoV-2 Antigen (Rapid) Negative (NEGATIVE) Test 05/18/25 06:25 05/18/25 05:50 05/18/25 04:50 05/18/25 03:04 Blood Gas Specimen Type Arterial Blood Gas Sample Site Left radial Blood Gas Patient Temperature 37.0 Arterial Blood Date Drawn [id number] Arterial Blood pH 7.511 (7.350-7.450) Arterial Blood Partial Pressure CO2 27.5 mmHg (35.0-48.0) Arterial Blood Partial Pressure O2 85.8 mmHg (83.0-108.0) Arterial Blood HCO3 21.5 mmol/L (21.0-28.0) Arterial Blood Oxygen Saturation 96.3 % (94.0-98.0) Arterial Blood Base Excess -0.6 mmol/L (-2.0-3.0) Arterial Blood Oxyhemoglobin 95.2 % (94.0-98.0) Arterial Blood Carboxyhemoglobin 0.5 % (0.5-1.5) Arterial Blood Methemoglobin 0.6 % (0.0-1.5) Yeison Test Modified Blood Gas Total Hemoglobin 11.00 g/dL (13.5-17.5) Blood Gas Liter Flow 3.00 Blood Gas Modality Nasal cannula FiO2 % 32.0 Lactic Acid Level 1.1 mmol/L (0.4-2.0) Troponin I High Sensitivity 38 ng/L (</=54) Urine Color Yellow (Yellow) Urine Clarity Turbid (Clear) Urine pH 6.0 (5.0-9.0) Urine Specific [place] 1.023 (1.001-1.035) Urine Protein 1+ (Negative) Urine Ketones 1+ (Negative) Urine Blood 2+ /uL (Negative) Urine Nitrite 2+ (Negative) Urine Bilirubin Negative (Negative) Urine Urobilinogen 3 mg/dL (Negative) Urine Leukocyte Esterase 3+ /uL (Negative) Urine RBC 22 /hpf (0 - 3) Urine Microscopic WBC 260 /HPF (0-3) Urine Squamous Epithelial Cells None seen /hpf (<5) Urine Bacteria Few /hpf (None Seen) Urine Mucus Few (None Seen) Urine Glucose Normal mg/dL (Normal) Urine Opiates Screen Pos (NEGATIVE) Urine Fentanyl Screen Neg (NEGATIVE) Urine Barbiturates Screen Neg (NEGATIVE) Urine Phencyclidine Screen Neg (NEGATIVE) Urine Amphetamines Screen Neg (NEGATIVE) Urine Benzodiazepines Screen Pos (NEGATIVE) Urine Cocaine Screen Neg (NEGATIVE) Urine Cannabinoids Screen Pos (NEGATIVE) D-Dimer, Quantitative 14.23 mg/L FEU (0.0-0.49) B-Type Natriuretic Peptide 53.70 pg/mL (0-100) Thyroid Stimulating Hormone (TSH) 1.55 uIU/mL (0.55-4.78) Free Thyroxine (T4) Calculated 1.45 ng/dL (0.89-1.76) Other Laboratory Tests 05/28/25 04:43 05/27/25 10:25 Brief Hx & Hospital Course: History of Present Illness Parveen Cano is a 49-year-old male patient who presents to the ED with chief complaint of left knee pain secondary to torn meniscus which occurred on 05/11/2025, per patient he reports evaluation by sight effects specialist who recommended conservative management. Since then patient has been practically bed-bound. 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 Denies any other associated symptoms, including chest pain, dyspnea, palpitation and syncope. Course of hospitalization: Patient was started on empiric antibiotic therapy. Patient's blood cultures came back positive for MRSA. Vancomycin was continued. When patient became more arousable his chief complaint focused on his left knee which was noted to be swollen. CT scan was performed of left knee which showed effusion. Left knee was aspirated, with no growth found in aspirate culture. Repeat blood culture was found negative. Patient had transesophageal echocardiogram which was negative for endocarditis. Patient was transitioned from Lovenox to Eliquis. Patient will be discharged home given as instructed to follow up with discharge Clinic in one week. He will be continued on antibiotic therapy with clindamycin 300 mg p.o. t.i.d. for additional seven days. Patient will also be prescribed Florastor as well as Eliquis per protocol. Patient was instructed to stop using illicit drugs. All questions answered. Physical examination General: Alert and Oriented x3. No acute distress. Well-nourished. Eyes: EOMI. Anicteric. HENT: Moist mucous membranes. Lungs: Clear to auscultation bilaterally. No accessory muscle use. Cardiovascular: Regular rate and rhythm. No murmur. No JVD. Abdomen: Soft, non-tender and non-distended. No palpable masses. Extremities: No edema. Non-tender. Skin: No rashes or lesions. Warm. Neurologic: No focal neurological deficits. CN II-XII grossly intact, but not individually tested. Psychiatric: Cooperative. Appropriate mood and affect. Total time spent with patient discussing and formulating plan of care: 35 minutes. This medical document was created using an electronic medical record system with [employer] system. Although this document has been carefully reviewed, there may still be some phonetic and typographical errors. These areas are purely typographical due to imperfections of the software programs, and do not reflect any compromise in the patient's medical care. Condition at Discharge: Poor Final Diagnosis/Problems List Bilateral pulmonary embolism -bilateral pulmonary embolus -renal cell carcinoma, with metastasis. Status post craniectomy, chemotherapy -sepsis -complicated cystitis -rule out septic arthritis -probable MRSA bacteremia Discharge Disposition: Home Discharge Instruct/Medications Diet: Regular Activity: No Restrictions, As Tolerated Follow Up/Referral: Follow up with discharge Clinic in one week Follow up with Orthopedic surgery Clinic in one week Medications: Eliquis 10 mg p.o. b.i.d. for a total of seven days then 5 mg p.o. b.i.d. Clindamycin 300 mg p.o. t.i.d. x7 days Florastor 250 mg p.o. daily Continue all home medications Scheduled Apixaban Base (Eliquis), 5 MG PO BID Apixaban Base (Eliquis), 10 MG PO BID Clindamycin HCl (Clindamycin Hydrochloride), 300 MG PO TID Oxycodone W/ Acetaminophen (Percocet 5/325MG), 1 TAB PO TID 36 Discharge Statement: "Patient was advised to return to the ER or call 911 if any headaches, dizziness, shortness of breath, chest pain, abdominal pain, bleeding, fevers, or worsening of medical condition. Patient was counseled about treatment plan, medications, possible side effects, patientverbalized understanding. All questions were answered to the best of my ability. This discharge took greater then 30 minutes in planning, reviewing documentation, counseling the patient, and discussing with other team members." ASSESSMENT ASSESSMENT Assessment Bilateral pulmonary embolism Date of Service: May 29, 2025 Billing Provider: JOCELYN WEISS NP Common Visit Codes: 93980-HOS/OBS DISCH DAY >30min JOCELYN WEISS NP May 29, 2025 10:55
[2025-05-29] MEDS: HYDROmorphone HCL 2 MG/ML VL/or syr IV ONE (11:00)
[2025-05-29 13:13] LABS: Hematocrit 48.2 % (41.0-53.0); Hemoglobin 16.5 g/dL (13.5-17.5); Mean Corpuscular Hemoglobin 33.3 pg (28.0-32.0); Mean Corpuscular Volume 97.4 fL (80.0-100.0); Nucleated Red Blood Cells % 0.1 %
[2025-05-30] VITALS (11 sets, daily range): BP systolic 101–144; BP diastolic 73–85; PULSE 107–113; RESP 16–19; TEMP 97.1–98.7; O2SAT 95–99
[2025-05-30 01:22] LABS: Hematocrit 26.7 % (41.0-53.0); Hemoglobin 9.0 g/dL (13.5-17.5); Mean Corpuscular Hemoglobin 29.4 pg (28.0-32.0); Mean Corpuscular Volume 87.2 fL (80.0-100.0); Nucleated Red Blood Cells % 0.0 %
--- NOTE | 2025-05-30 11:08 | DVHPN2 ---
Subjective Patient has body aches Reviewed: Care Plan, H&P, Labs, Medications, Previous Orders, Radiology Changes from previous H/P or p: No Changes General: Per HPI Objective Vitals Vital Signs Date Time Temp Pulse Resp B/P (MAP) Pulse Ox O2 Delivery O2 Flow Rate FiO2 05/30/25 08:36 97.7 110 16 144/78 (100) 97 97.7 05/30/25 08:12 0.0 21 05/29/25 20:00 Room Air* Intake/Output Intake and Output 05/30/25 07:00 Intake Total 1000 ml Output Total 525 ml Balance 475 ml Intake Oral 700 ml IV Total 300 ml Output Urine Total 525 ml # Voids 3 # Bowel Movements 1 General Appearance: Alert, Oriented X3, Cooperative HEENT: Atraumatic, PERRLA Lungs: Clear to auscultation, Normal air movement Cardiovascular: Other (TACHYCARDIA) Abdomen: Normal bowel sounds, Soft, No tenderness Extremities: No clubbing, No cyanosis Skin: Dry, Intact Psych/Mental Status: Mental status NL, Mood NL Medications Current Medications Medications Dose Ordered Sig/Trent Route Start Time Stop Time Status Last Admin Dose Admin Acetaminophen 325 mg Q4HP PRN PO 05/18/25 06:15 05/26/25 21:56 325 MG Vancomycin HCl 0 ml @ 0 mls/hr UD IV 05/18/25 06:15 Ipratropium [place] 0.5 mg Q6HWA NEB 05/18/25 12:00 05/29/25 18:31 0.5 MG Ondansetron HCl 4 mg Q6HPRN PRN IV 05/18/25 16:45 Oxycodone/ Acetaminophen 1 tab Q6HP PRN PO 05/20/25 11:45 05/29/25 21:22 1 TAB Levalbuterol HCl 0.625 mg Q6HWA NEB 05/25/25 06:00 05/29/25 18:31 0.625 MG Ceftriaxone Sodium 50 ml @ 100 mls/hr DAILY@09 IV 05/25/25 09:00 05/30/25 10:38 100 MLS/HR Alprazolam 0.25 mg Q8HP PRN PO 05/25/25 12:30 05/25/25 16:07 0.25 MG Morphine Sulfate 2 mg Q8HPRN PRN IV 05/27/25 10:15 05/29/25 09:33 2 MG Apixaban 10 mg BID PO 05/28/25 22:00 06/04/25 21:59 05/30/25 10:38 10 MG Vancomycin HCl 250 ml @ 250 mls/hr Q12H IV 05/30/25 14:00 Laboratory Results Laboratory Tests 05/27/25 10:25 05/30/25 00:45 Urinalysis Test 05/18/25 04:50 Urine Color Yellow (Yellow) Urine Clarity Turbid (Clear) H Urine pH 6.0 (5.0-9.0) Urine Specific [place] 1.023 (1.001-1.035) Urine Protein 1+ (Negative) H Urine Ketones 1+ (Negative) H Urine Blood 2+ /uL (Negative) H Urine Nitrite 2+ (Negative) H Urine Bilirubin Negative (Negative) Urine Urobilinogen 3 mg/dL (Negative) H Urine Leukocyte Esterase 3+ /uL (Negative) Urine RBC 22 /hpf (0 - 3) Urine Microscopic WBC 260 /HPF (0-3) H Urine Squamous Epithelial Cells None seen /hpf (<5) Urine Bacteria Few /hpf (None Seen) H Urine Mucus Few (None Seen) Urine Glucose Normal mg/dL (Normal) Microbiology Microbiology Date/Time Source Procedure Growth Status 05/23/25 10:00 Aspirate Gram Stain - Final Complete 05/23/25 10:00 Aspirate Body Fluid Culture - Final Complete 05/21/25 18:39 Blood Blood Culture - Final NO GROWTH AFTER 5 DAYS OF INCUBATION. Complete 05/20/25 21:55 Nose MRSA Screen - Final Complete 05/18/25 04:50 Voided Urine Urine Culture - Final Methicillin Resistant S.aureus Complete Labs and/or images reviewed: Labs reviewed by me, Image(s) reviewed by me Assessment/Plan Assessment/Plan Impression: -acute hypoxic respiratory failure -bilateral pulmonary embolus -renal cell carcinoma, with metastasis. Status post craniectomy, chemotherapy -sepsis -complicated cystitis -rule out septic arthritis -probable MRSA bacteremia Plan: Events: I was called yesterday by primary nurse stating that patient's family is unable to be reached. Then additional call was sent to me stating that the patient's father who lives in [place] once the patient to be placed on hospice. I, myself spoke with the patient today and does not want to be on hospice. Patient was able to provide a name and phone number of his girlfriend. Patient will be discharged today and continue with previous discharge plan of care. Total time spent with patient discussing and formulating plan of care: 35 minutes. This medical document was created using an electronic medical record system with [employer] dictation system. Although this document has been carefully reviewed, there may still be some phonetic and typographical errors. These areas are purely typographical due to imperfections of the software programs, and do not reflect any compromise in the patient's medical care. Plan discussed with: Patient, Other (RN) My Orders Orders - JOCELYN WEISS NP Procedure Category Date Status Time Soc Telemed Psych CONS 05/29/25 Transmitted Consult 13:32 Date of Service: May 30, 2025 Billing Provider: JOCELYN WEISS NP Common Visit Codes: [id number] INP/OBS CARE(HIGH) JOCELYN WEISS NP May 30, 2025 11:08
[2025-05-30] MEDS: VANCOMYCIN 1GM/250ML KIT 250 ML IV SCH (16:24)
[2025-05-31 06:32] VITALS: PULSE 110; RESP 18; O2SAT 97
[2025-05-31 06:38] VITALS: PULSE 108; RESP 18; O2SAT 98
[2025-05-31 07:53] VITALS: RESP 16
[2025-05-31 09:00] VITALS: BP 121/75; PULSE 116; RESP 18; O2SAT 96
[2025-05-31 10:00] VITALS: O2SAT 98
[2025-05-31] MEDS ORDERED: VANCOMYCIN 1.25GM/250ML 250 ML IV ONE (10:11)
== END 2025-05-31 10:20 | disposition home or self-care (01) | DRG 720 ==
LOC: EDBD 01:44 → ER 01:44 → OVERFLOW 06:03 → TELE-EAST 17:52 → EAST 05-27 18:53
PROVIDERS: ADMIT Nurse Practitioner Acute Care; ATTEND Nurse Practitioner Acute Care
PROC: 0S9D3ZX Drainage of Left Knee Joint, Percutaneous Approach, Diagnostic (ICD-10-PCS; 2025-05-23)
PROC: B24BZZ4 Ultrasonography of Heart with Aorta, Transesophageal (ICD-10-PCS; principal; 2025-05-26)
DX: A41.02 Sepsis due to Methicillin resistant Staphylococcus aureus (principal); I26.99 Other pulmonary embolism without acute cor pulmonale; J96.01 Acute respiratory failure with hypoxia; R16.0 Hepatomegaly, not elsewhere classified; K76.6 Portal hypertension; M00.9 Pyogenic arthritis, unspecified; D64.9 Anemia, unspecified; N30.90 Cystitis, unspecified without hematuria; Z20.822 Contact with and (suspected) exposure to COVID-19; S83.207A Unspecified tear of unspecified meniscus, current injury, left knee, initial encounter; M17.12 Unilateral primary osteoarthritis, left knee; I10 Essential (primary) hypertension; F17.210 Nicotine dependence, cigarettes, uncomplicated; Z88.0 Allergy status to penicillin; Z74.01 Bed confinement status; Z85.528 Personal history of other malignant neoplasm of kidney; Z92.21 Personal history of antineoplastic chemotherapy; Z79.899 Other long term (current) drug therapy; Z85.841 Personal history of malignant neoplasm of brain
CPT/HCPCS: 36415; 36600; 71045; 71260; 73700; 74177; 76942; 80048; 80053; 80202; 80307; 81001; 82565; 82805; 83605; 83880; 83986; 84439; 84443; 84484; 84550; 85025; 85379; 85610; 85652; 85730; 86141; 86431; 86850; 86900; 86901; 87040; 87071; 87077; 87081; 87086; 87088; 87186; 87205; 87426; 87804; 89051; 93005; 93306; 93312; 93926; 93970; 94640; 96361; 96365; 96367; 96375; 99152; 99291; C1729; G0378; J2185; J2250; J2405; J3490

== ENCOUNTER 2025-05-31 11:33 | Emergency (ER) | payer MEDICAID ==
[~2025-05-31] VITALS: Ht 185.4 cm; Wt 79.0 kg
[~2025-05-31 11:33] MED LIST: APIX5TAB PO; CLIN-203 PO; PERCOT PO
[2025-05-31 12:00] VITALS: BP 133/83; TEMP 97.5
[2025-05-31 12:05] VITALS: PULSE 88; RESP 18; O2SAT 95
--- NOTE | 2025-05-31 12:28 | ED.PDOC ---
History of Present Illness HPI Comments 49 year old male presents to the ED via transportation service chief complaint of LT knee pain. Patient was discharged from [facility] today, was sent home with transportation service, there was no answer at home, brought back to [facility] for social security assessor consult. Patient states his initial complaint was LT knee pain. PMhx cancer, HTN. Denies fever, chills, nausea, vomiting, diarrhea, chest pain, shortness of breath. No other symptoms or modifying factors present at this time. Chief Complaint: Lower Extremity Time Seen by MD: 12:10 Primary Care Provider: NATALIE Reviewed Notes: Medications, Allergies Allergies: Coded Allergies: Penicillins (Verified Allergy, Unknown, 03/15/25) Home Meds Active Scripts Clindamycin HCl (Clindamycin Hydrochloride) 300 Mg Cap, 300 MG PO TID for 10 Days, #30 CAP Prov:JOCELYN WEISS NP 05/28/25 Oxycodone W/ Acetaminophen (Percocet 5/325MG) 1 Tab Tb, 1 TAB PO TID for 5 Days, #15 TAB Prov:JOCELYN WEISS NP 05/28/25 Apixaban Base (ELIQUIS) 5 Mg Tab, 10 MG PO BID for 6 Days, #24 TAB 10MG BID X 7 DAYS THEN 5MG PO BID FOR AT LEAST 6 MONTHS FOR DVT/PE TREATMENT Prov:JOCELYN WEISS NP 05/28/25 Apixaban Base (ELIQUIS) 5 Mg Tab, 5 MG PO BID for 30 Days, #60 TAB Start after intial week of 10mg po bid. Prov:JOCELYN WEISS NP 05/28/25 Information Source: Patient, Emergency Med Personnel Mode of Arrival: EMS Severity: Moderate Timing: Hours Duration: Since onset Prehospital treatment: None Past Medical History PAST MEDICAL HISTORY: Cancer, HTN Family History Family History: Reviewed,noncontributory to illness Social History Smoker: Cigarettes Alcohol: Denies ETOH Use Drugs: Marijuana Lives In: Home Constitutional: denies: chills, diaphoresis, fatigue, fever, malaise, sweats, weakness, others EENTM: denies: blurred vision, double vision, ear bleeding, ear discharge, ear drainage, ear pain, ear ringing, eye pain, eye redness, hearing loss, mouth pain, mouth swelling, nasal discharge, nose bleeding, nose congestion, nose pain, photophobia, tearing, throat pain, throat swelling, voice changes, others Respiratory: denies: cough, hemoptysis, orthopnea, SOB at rest, shortness of breath, SOB with excertion, stridor, wheezing, others Cardiovascular: denies: chest pain, dizzy spells, diaphoresis, Dyspnea on exertion, edema, irregular heart beat, left arm pain, lightheadedness, palpitations, PND, syncope, others Gastrointestinal: denies: abdomen distended, abdominal pain, blood streaked bowels, constipated, diarrhea, dysphagia, difficulty swallowing, hematemesis, melena, nausea, poor appetite, poor fluid intake, rectal bleeding, rectal pain, vomiting, others Genitourinary: denies: burning, dysuria, flank pain, frequency, hematuria, incontinence, penile discharge, penile sore, pain, testicle pain, testicle swelling, urgency, others Neurological: denies: dizziness, fainting, headache, left sided numbness, left sided weakness, numbness, paresthesia, pre-existing deficit, right sided numbness, right sided weakness, seizure, speech problems, tingling, tremors, weakness, others Musculoskeletal: reports: others (LT knee pain); denies: back pain, gout, joint pain, joint swelling, muscle pain, muscle stiffness, neck pain Integumetry: denies: bruises, change in color, change in hair/nails, dryness, laceration, lesions, lumps, rash, wounds, others Allergic/Immunocompromised: denies: Difficulty Healing, Frequent Infections, Hives, Itching, others Hematologic/Lymphatic: denies: anemia, blood clots, easy bleeding, easy bruising, swollen glands, others Endocrine: denies: excessive hunger, excessive sweating, excessive thirst, excessive urination, flushing, intolerance to cold, intolerance to heat, unexplained weight gain, unexplained weight loss, others Psychiatric: denies: anxiety, bipolar disorder, depression, hopeless, panic disorder, schizophrenia, sleepless, suicidal, others All Other Systems: Reviewed and Negative Physical Exam General Appearance: Normal HEENT: Normal ENT Inspection, Pharynx Normal, TMs Normal Neck: Full Range of Motion, Non-Tender, Normal, Normal Inspection Respiratory: Chest Non-Tender, Lungs Clear, No Accessory Muscle Use, No Respiratory Distress, Normal Breath Sounds Cardiovascular: No Edema, No JVD, No Murmur, No Gallop, Normal Peripheral Pulses, Regular Rate/Rhythm Breast Exam: Deferred Gastrointestinal: No Organomegaly, Non Tender, No Pulsatile Mass, Normal Bowel Sounds, Soft Genitalia: Deferred Pelvic: Deferred Rectal: Deferred Extremities: No calf tenderness, Normal capillary refill, Normal inspection, Normal range of motion, Non-tender, No pedal edema Musculoskeletal : Apperance: Normal Neurologic: Alert, rn psychiatric II-XII nml as Tested, No Motor Deficits, Normal Affect, Normal Mood, No Sensory Deficits Cerebellar Function: Normal Reflexes: Normal Skin: Dry, Normal Color, Warm Lymphatic: No Adenopathy Was a procedure done? Was a procedure done?: No Differential Dx Considerations may include: lack of social security assessor X-Ray, Labs, Meds, VS Vital Signs Date Time Temp Pulse Resp B/P (MAP) Pulse Ox O2 Delivery O2 Flow Rate FiO2 05/31/25 12:05 97 Room Air* 0 21 05/31/25 12:05 88 18 95 Room Air* 0 21 05/31/25 12:00 97.5 111 18 133/83 (100) 96 97.5 05/31/25 11:34 98.4 113 14 133/83 96 98.4 Current Medications Medications (Trade) Dose Ordered Sig/Trent Route Start Time Stop Time Status Last Admin Oxycodone/ Acetaminophen (Percocet 5/ 325MG Tablet) 1 tab ONCE ONCE PO 05/31/25 13:30 05/31/25 13:33 DC 05/31/25 13:32 Time of 1ST Reevaluation: 12:40 Reevaluation 1ST: Unchanged Patient Education/Counseling: Diagnosis, Treatment, Prognosis Family Education/Counseling: No Family Present SEPSIS Sepsis Screen Date sepsis recognized/suspect: May 31, 2025 Time Sepsis recognized/suspect: 1204 Recent Procedure: No On Antibiotic Therapy: No Respiratory Rate >20: No Heart Rate >90: No Temp<36 C (96.8 F) or >38.3 C: No SBP <90 or MAP <65 mmHG: No New Acute Mental Status Change: No Is the patient on CPAP, BIPAP,: No Physician Orders * Manufacturing Business Analyst Consult (05/31/25 ) Vital Signs Date Time Temp Pulse Resp B/P (MAP) Pulse Ox O2 Delivery O2 Flow Rate FiO2 05/31/25 12:05 97 Room Air* 0 21 05/31/25 12:05 88 18 95 Room Air* 0 21 05/31/25 12:00 97.5 111 18 133/83 (100) 96 97.5 05/31/25 11:34 98.4 113 14 133/83 96 98.4 Medications Medications Dose Ordered Sig/Trent Route Start Time Stop Time Status Last Admin Dose Admin Oxycodone/ Acetaminophen 1 tab ONCE ONCE PO 05/31/25 13:30 05/31/25 13:33 DC 05/31/25 13:32 Departure 1 Departure Time of Disposition: 15:35 (Patient was unable to get into his home. Will discharge home with social work) Impression: Primary Impression: Need for social security assessor intervention Disposition: 01 HOME / SELF CARE / HOMELESS Condition: Stable Discharged With: Self Critical Care Note Critical Care Time?: No Stability Stability form required: No I personally scribed for ISHAAN LEE MD ([email or web address]) on 05/31/25 at 12:28. Electronically submitted by Marie Corey ([email or web address]). ISHAAN LEE MD May 31, 2025 12:28
[2025-05-31] MEDS ORDERED: HYDROcodone-ACET 5/325MG TAB PO ONE (13:30)
[2025-05-31] MEDS: OXYCODONE W/ ACETAMINOPHEN 5/325MG TABLET PO ONE (13:32)
[2025-05-31] MEDS: HALOPERIDOL LACTATE 5 MG/ML INJ VIAL IM ONE (14:38)
== END 2025-05-31 15:50 | disposition home or self-care (01) ==
LOC: ER 11:33
DX: Z60.9 Problem related to social environment, unspecified (principal); M25.562 Pain in left knee; I10 Essential (primary) hypertension; F17.210 Nicotine dependence, cigarettes, uncomplicated; Z88.0 Allergy status to penicillin

== ENCOUNTER 2025-06-04 14:31 | Inpatient (IN) | payer MEDICAID, OTHER ==
[~2025-06-04] VITALS: Ht 185.4 cm; Wt 81.5 kg
--- NOTE | 2025-06-04 14:48 | ED.PDOC ---
HPI Comments 49-year-old male presents here with left knee pain. Patient unable to give history due to his mental status. I spoke to his mother who is his primary evp and chief operating officer and medical decision maker over the phone Cesar Markham. She states that patient has been having significant left knee pain off and on for several weeks. He was at [facility] and [facility] recently where his knee was drained twice. She states however it is still causing him pain. History otherwise limited. No fever no chills no recent illness. Patient has a has a history of metastatic brain cancer, and now no longer is able to swallow. She states he sleeps all day. He is currently on hospice. Chief Complaint: Possible STEMI Time Seen by MD: 14:35 Reviewed Notes: Business Systems Manager Notes Information Source: Relative (Mother), Emergency Med Personnel Mode of Arrival: EMS Severity: Moderate Timing: Weeks Duration: Intermittent Associated Signs and Symptoms: Other (L Knee Pain ) Past Medical History Past Medical History (Other): Lung Cancer Social History Smoker: Unobtainable Alcohol: Unobtainable Drugs: Unobtainable Lives In: Assisted Care Unable to Obtain due to: Altered Mental Status All Other Systems: Deferred Physical Exam General Appearance: Thin, Other (Extremely dry tongue lips mouth, with bleeding of the tongue lips and mouth due to dryness. Patient open his eyes to my voice but unable to communicate anything or verbally or even nonverbal communication) HEENT: Other Neck: Normal Inspection Respiratory: Chest Non-Tender, Lungs Clear, No Respiratory Distress, Normal Breath Sounds Cardiovascular: No Edema, No JVD, No Murmur, No Gallop, Normal Peripheral Pulses, Regular Rate/Rhythm Breast Exam: Deferred Gastrointestinal: No Organomegaly, Non Tender, No Pulsatile Mass, Normal Bowel Sounds, Soft Genitalia: Deferred Pelvic: Deferred Rectal: Deferred Extremities: No calf tenderness, Normal capillary refill, Normal inspection, Normal range of motion, Non-tender, No pedal edema Musculoskeletal : Apperance: Normal Neurologic: Other (Patient awake, completely nonverbal does not respond per mother this is his baseline) Cerebellar Function: Normal Reflexes: Normal Skin: Dry, Normal Color, Warm Lymphatic: No Adenopathy EKG EKG : Comments Sinus tachycardia rate of [address] elevation in V1 V2 consistent with STEMI Was a procedure done? Was a procedure done?: No CP Differential Dx Differential Diagnosis: NJ, PSVT, Pulmonary Embolus Differential Diagnosis: Other Differential Diagnosis: Angina, Myocardial Infarction, Pneumothorax, Pulmonary Embolus Comment Septic knee joint, pleural effusion to the knee X-Ray, Labs, Meds, VS Vital Signs Date Time Temp Pulse Resp B/P (MAP) Pulse Ox O2 Delivery O2 Flow Rate FiO2 06/04/25 14:31 115 Lab Test 06/04/25 17:45 06/04/25 14:39 Range/Units Troponin I High Sensitivity Pending 13 </=54 ng/L White Blood Count 12.1 H 4.4-10.8 10^3/uL Red Blood Count 3.62 L 4.5-5.90 10^6/uL Hemoglobin 10.3 L 13.5-17.5 g/dL Hematocrit 31.3 L 41.0-53.0 % Mean Corpuscular Volume 86.4 80.0-100.0 fL Mean Corpuscular Hemoglobin 28.5 28.0-32.0 pg Mean Corpuscular Hemoglobin Concent 32.9 32.0-36.0 g/dL Red Cell Distribution Width 17.0 H 11.8-14.3 % Platelet Count 638 H 140-450 10^3/uL Mean Platelet Volume 6.8 L 6.9-10.8 fL Neutrophils (%) (Auto) 79.5 37.0-80.0 % Lymphocytes (%) (Auto) 11.4 10.0-50.0 % Monocytes (%) (Auto) 7.1 0.0-12.0 % Eosinophils (%) (Auto) 1.3 0.0-7.0 % Basophils (%) (Auto) 0.7 0.0-2.0 % Neutrophils # (Auto) 9.6 H 1.6-8.6 10 ^3/uL Lymphocytes # (Auto) 1.4 0.4-5.4 10 ^3/uL Monocytes # (Auto) 0.9 0-1.3 10 ^3/uL Eosinophils # (Auto) 0.2 0-0.8 10 ^3/uL Basophils # (Auto) 0.1 0-0.2 10 ^3/uL Nucleated Red Blood Cells 0.0 % Erythrocyte Sedimentation Rate 110 H 0-20 mm/hr Sodium Level 140 136-145 mmol/L Potassium Level 3.9 3.5-5.1 mmol/L Chloride Level 103 98-107 mmol/L Carbon Dioxide Level 27 20-31 mmol/L Anion Gap 10 5-15 Blood Urea Nitrogen 24 H 9-23 mg/dL Creatinine 0.85 0.700-1.30 mg/dL Glomerular Filtration Rate Calc 108 >90 mL/min BUN/Creatinine Ratio 28.2 H 10.0-20.0 Serum Glucose 117 H 74-106 mg/dL Calcium Level 13.2 *H 8.7-10.4 mg/dL C-Reactive Protein High Sensitivity 12.13 H <1.0 mg/dL Current Medications Medications (Trade) Dose Ordered Sig/Trent Route Start Time Stop Time Status Last Admin Sodium Chloride 1,000 ml @ 1,000 mls/hr Q1H ONCE IV 06/04/25 15:00 06/04/25 15:59 DC 06/04/25 15:36 [place] [address] Ph: [phone] DIAGNOSTIC IMAGING Diagnostic Imaging Report : [id number] Signed PATIENT: IRENE SHRESTHA ACCT: [id number] UNIT: [id number] : 1975 LOC: ER ROOM / BED: / AGE / SEX: 49 / M ADM STATUS: REG ER SERVICE 1440 ORDERING PHYSICIAN: BAKARI ORONA MD PROCEDURE(s): LKNE3 - L KNEE 3V XRAY REASON: left knee pain ORDER NUMBER(s): [id number], ACCESSION NUMBER(s): [id number] CLINICAL INFORMATION: Left knee pain. TECHNIQUE: 3 views of the left knee were obtained. COMPARISON: None FINDINGS: No acute fracture or dislocation. Moderate arthritic changes are seen in all 3 compartments of the left knee with joint space narrowing, subchondral sclerosis, and small marginal osteophytes. Mild soft tissue swelling around the left knee. Moderate joint effusion. IMPRESSION: 1. No evidence of acute bony abnormality. 2. Moderate joint effusion. If there is clinical concern for internal derangement, MRI could be obtained. 3. Arthritic changes as described above. 49-year-old male with a history of metastatic brain cancer here for left knee pain. Incidentally he was found to have elevations on his EKG in route by medics. EKG here demonstrates elevation in leads V1 V2 consistent with STEMI. Patient is awake but unable to answer any questions, A&O times 0. Mother was not at bedside but I called the patient since mother Myles Markham over the phone. She advised this is his normal mental status. He does not eat, watch TV read or do anything else besides sleep most of the day. She states he has been complaining a lot of knee pain. I advised her that he is EKG does demonstrate STEMI and if she would like activation. We had a long conversation and ultimately she has decided that she does not want a STEMI alert in any invasive procedure performed. She does want the knee taken care of and is open to admission and any procedures that need to be done on the knee as it is causing him significant pain. She has been told by hospice that he is no longer eating and that is because his body is starting to shut down. At this time she has made him DNR DNI/DNR. She is aware at that if this STEMI is untreated this may lead to significant morbidity and/or . At this time, I am unable to start him on fiber in the lytics or heparin given his history of brain metastases and has a high-risk of intracranial hemorrhage. I have written for aspirin rectally as a unable to take aspirin by mouth. Patient has been given IV fluids. Blood work has been blood including a CBC BMP and troponin. CBC is largely unremarkable. BMP demonstrates significant hypercalcemia 13 consistent with his cancer. First troponin is negative. Patient's mouth is extremely dry therefore fluids has been written for. X-ray of the knee demonstrates moderate joint effusion. There was no overlying erythema. CRP has returned high. At this time hospitalist team has been consulted for admission. Time of 1ST Reevaluation: 15:24 Reevaluation 1ST: Unchanged Patient Education/Counseling: Other (Pt A&O X0) Family Education/Counseling: No Family Present SEPSIS Sepsis Screen Physician Orders L Knee 3v Xray (06/04/25 14:40) Erythrocyte Sedimentation Rate (06/04/25 17:22) Troponin-I Hs (06/04/25 18:26) Troponin-I Hs (06/04/25 20:26) Chest Xray 1 View (06/04/25 17:26) Vital Signs Date Time Temp Pulse Resp B/P (MAP) Pulse Ox O2 Delivery O2 Flow Rate FiO2 06/04/25 14:31 115 Laboratory Tests Test 06/04/25 14:39 White Blood Count 12.1 10^3/uL (4.4-10.8) H Medications Medications Dose Ordered Sig/Trent Route Start Time Stop Time Status Last Admin Dose Admin Sodium Chloride 1,000 ml @ 1,000 mls/hr Q1H ONCE IV 06/04/25 15:00 06/04/25 15:59 DC 06/04/25 15:36 Departure 1 Departure Time of Disposition: 16:00 Impression: Primary Impression: STEMI (ST elevation myocardial infarction) Qualified Codes: I21.3 - ST elevation (STEMI) myocardial infarction of unspecified site Additional Impressions: Do not resuscitate discussion Hypercalcemia Knee effusion, left Disposition: ADMITTED INPATIENT Condition: Serious Critical Care Note Critical Care Time?: Yes (45 min-critical care time only) Critical care comment: Time spent evaluating the patient, speaking to nursing staff, reviewing EKGs, speaking to mother over the phone multiple times regarding patient's current status Stability Stability form required: No Heart Score Heart Score: Heart Score Response (Comments) Value History Slightly Suspicious [address]-Deviation 2 Age 45-64 1 Risk Factors 1 or 2 risk factors 1 Troponin Normal limit 0 Total 4 I personally scribed for BAKARI ORONA MD ([email or web address]) on 06/04/25 at 14:48. Electronically submitted by Kimberly Martinez (ASSIA). I personally scribed for BAKARI ORONA MD ([email or web address]) on 06/04/25 at 14:59. Electronically submitted by Kimberly Martinez (ASSIA). I personally scribed for BAKARI ORONA MD ([email or web address]) on 06/04/25 at 16:07. Electronically submitted by Kimberly Martinez (ASSIA). BAKARI ORONA MD Jun 04, 2025 14:48
[2025-06-04 15:00] VITALS: PULSE 118; RESP 16; O2SAT 96
[2025-06-04 15:10] LABS: Hematocrit 31.3 % (41.0-53.0); Hemoglobin 10.3 g/dL (13.5-17.5); Mean Corpuscular Hemoglobin 28.5 pg (28.0-32.0); Mean Corpuscular Volume 86.4 fL (80.0-100.0); Nucleated Red Blood Cells % 0.0 %
[2025-06-04 15:16] LABS: Chloride 103 mmol/L (98-107); Potassium 3.9 mmol/L (3.5-5.1); Sodium 140 mmol/L (136-145)
[2025-06-04 15:17] LABS: Anion Gap 10 (5-15); Carbon Dioxide 27 mmol/L (20-31)
[2025-06-04 15:22] LABS: BUN/Creatinine Ratio 28.2 (10.0-20.0)
[2025-06-04 15:25] LABS: Blood Urea Nitrogen 24 mg/dL (9-23); Glucose 117 mg/dL (74-106)
[2025-06-04 15:26] LABS: Calcium 13.2 mg/dL (8.7-10.4)
--- NOTE | 2025-06-04 15:26 | DVH ---
CLINICAL INFORMATION: Left knee pain. TECHNIQUE: 3 views of the left knee were obtained. COMPARISON: None FINDINGS: No acute fracture or dislocation. Moderate arthritic changes are seen in all 3 compartments of the left knee with joint space narrowing, subchondral sclerosis, and small marginal osteophytes. Mild soft tissue swelling around the left knee. Moderate joint effusion. IMPRESSION: 1. No evidence of acute bony abnormality. 2. Moderate joint effusion. If there is clinical concern for internal derangement, MRI could be obtai shirley. 3. Arthritic changes as described above.
[2025-06-04] MEDS: SODIUM CHLORIDE 0.9% 1,000 ML IV ONE (15:36)
--- NOTE | 2025-06-04 15:42 | ECG ---
[facility] Test Date: 2025-06-04 Test Time: 14:29:26 Pat Name: IRENE SHRESTHA Department: [facility] ED Patient ID: [facility]-[id number] Room: Gender: M Equine Vet: keyana : 1975 Requested By: BAKARI ORONA Order Number: [id number] Reading MD: Malcom Villar Measurements Intervals [place] Rate: 115 P: 58 NH: 153 QRS: 7 QRSD: 98 T: 60 QT: 307 QTc: 425 Interpretive Statements Sinus tachycardia Probable anteroseptal infarct, recent Electronically Signed On 06-04-2025 20:43:24 PDT by Malcom Villar Please click the below link to view image of tracing.
--- NOTE | 2025-06-04 19:01 | DVH ---
EXAM: XY CHEST XRAY 1 VIEW HISTORY: EKG changes TECHNIQUE: 1 view of the chest COMPARISON: None FINDINGS/IMPRESSION: LUNGS: No pleural effusion, consolidation, or pneumothorax. MEDIASTINUM: Normal cardiac size. Question asymmetric enlargement of the right aspect of the presumed aortic arch versus paratracheal mass. Consider further evaluation with CTA of the chest with contra st BONES: No acute osseous abnormality. OTHER: Right anterior chest Port-A-Cath
[2025-06-04] MEDS ORDERED: NITROGLYCERIN 0.4 MG SL TAB SL PRN (20:00)
[2025-06-04] MEDS ORDERED: VANCOMYCIN PER PHARMACY 0 MG IV SCH (20:00)
[2025-06-04] MEDS ORDERED: MORPHINE SULFATE INJ 2 MG/ml SYRG IV PRN (20:00)
[2025-06-04] MEDS ORDERED: ONDANSETRON HCL 4 MG/2 ML VIAL IV PRN (20:00)
[2025-06-04] MEDS ORDERED: HYDROcodone-ACET 5/325MG TAB PO PRN (20:00)
[2025-06-04] MEDS ORDERED: ACETAMINOPHEN 325 MG TAB PO PRN (20:00)
[2025-06-04] MEDS ORDERED: DOCUSATE SOD 100 MG CAP PO PRN (20:00)
--- NOTE | 2025-06-04 20:05 | DVHHP2 ---
History of Present Illness Reason for Visit: STEMI (ST elevation myocardial infarction) History of Present Illness The patient is a 49-year-old male with past medical history of lung cancer with Mets who presented to [facility] ED with complaint of left knee pain. Patient unable to give history given his mental status. As reported, mother is his primary air pollution inspector and medical decision maker She states that patient has been having significant left knee pain intermittently for several weeks. He was at [facility] and [facility] recently where his knee was drained twice. She states however it is still causing him pain. Patient was seen and evaluated in the ED, laboratory data shows WBC 12.1, hemoglobin 10.3, hematocrit 31.3, platelets 638, ESR 110, sodium 140, potassium 3.9, BUN 24, creatinine 0.85, GFR 108, glucose 117, calcium 13.2, troponin 13, CRP 12.13, blood pressure 105/69, heart rate 104, temperature 99.8 F, O2 saturation 96% on oxygen. EKG here demonstrates elevation in leads V1 V2 consistent with STEMI, but patient's mother does not want a STEMI alert in any invasive procedure performed and he was made DNR DNI/DNR. She is aware at that if this STEMI is untreated this may lead to significant morbidity and/or . Left knee x-ray revealing moderate joint effusion. Chest x-ray revealing right anterior chest Port-A-Cath. Please see medication orders section in the computer. On my assessment, patient remains altered, no diaphoresis, currently on oxygen, no diarrhea, vomiting, fever, chills. Patient was admitted for further evaluation and medical management. Past Medical History Lung Cancer Past Surgical History Port-A-Cath Family History Reviewed, noncontributory to the management of this case. Past Social History The patient lives at home, no history of smoking, alcohol or illicit drugs abuse on file. Review of Systems Constitutional: Yes: Weakness, Other (Fatigue); No: Fever, Chills, Sweats, Malaise Eyes: No: Pain, Vision change, Conjunctivae inflammation, Eyelid inflammation, Other, Redness ENT: No: Ear pain, Ear discharge, Nose pain, Nose discharge, Nose congestion, Mouth pain, Mouth swelling, Throat pain, Throat swelling, Other Respiratory: No: Cough, Dry, Shortness of breath, SOB with excertion, Wheezing, Hemoptysis, Pleuritic Pain, Sputum, Wheezing, Other Cardiovascular: No: Chest Pain, Palpitations, Orthopnea, Paroxysmal Noc. Dyspnea, Edema, Lt Headedness, Other Gastrointestinal: No: Nausea, Vomiting, Abdominal Pain, Diarrhea, Constipation, Melena, Hematochezia, Other Genitourinary: No Dysuria, No Frequency, No Incontinence, No Hematuria, No Retention, No Other Musculoskeletal: other (Left knee pain); No: neck pain, shoulder pain, arm pain, back pain, hand pain, leg pain, foot pain Skin: No: Rash, Lesions, Jaundice, Bruising, Other Neurological: Confusion, Other (Altered level of consciousness); No: Weakness, Numbness, Incoordination, Change in speech, Seizures Allergies: Coded Allergies: Penicillins (Verified Allergy, Unknown, 06/04/25) Exam Vital Signs Vital Signs Date Time Temp Pulse Resp B/P (MAP) Pulse Ox O2 Delivery O2 Flow Rate FiO2 06/04/25 19:30 98.2 108 16 129/64 (85) 95 98.2 06/04/25 15:00 Room Air* 0 21 General Appearance: Alert, No acute distress, Other (Times 0) HEENT: Atraumatic, PERRLA, EOMI, Mucous membr. moist/pink Respiratory: Normal air movement, Other (Diminished breath sounds) Cardiovascular: Regular rate, Normal S1, Normal S2, No murmurs Abdominal: Normal bowel sounds, Soft, No tenderness, No hepatospenomegaly, No masses Extremities: No clubbing, No cyanosis, Normal pulses, Other (Left knee t enderness/swelling) Skin: No rashes, No significant lesion Neuro: Normal tone, Sensation intact, Reflexes 2+, Other (Generalized weakness) Psych/Mental Status: Mood NL, Other (Altered mental status) Labs/Xrays Labs Test 06/04/25 19:34 06/04/25 18:33 06/04/25 14:39 Range/Units Troponin I High Sensitivity 13 </=54 ng/L Erythrocyte Sedimentation Rate 99 H 0-20 mm/hr White Blood Count 12.1 H 4.4-10.8 10^3/uL Red Blood Count 3.62 L 4.5-5.90 10^6/uL Hemoglobin 10.3 L 13.5-17.5 g/dL Hematocrit 31.3 L 41.0-53.0 % Mean Corpuscular Volume 86.4 80.0-100.0 fL Mean Corpuscular Hemoglobin 28.5 28.0-32.0 pg Mean Corpuscular Hemoglobin Concent 32.9 32.0-36.0 g/dL Red Cell Distribution Width 17.0 H 11.8-14.3 % Platelet Count 638 H 140-450 10^3/uL Mean Platelet Volume 6.8 L 6.9-10.8 fL Neutrophils (%) (Auto) 79.5 37.0-80.0 % Lymphocytes (%) (Auto) 11.4 10.0-50.0 % Monocytes (%) (Auto) 7.1 0.0-12.0 % Eosinophils (%) (Auto) 1.3 0.0-7.0 % Basophils (%) (Auto) 0.7 0.0-2.0 % Neutrophils # (Auto) 9.6 H 1.6-8.6 10 ^3/uL Lymphocytes # (Auto) 1.4 0.4-5.4 10 ^3/uL Monocytes # (Auto) 0.9 0-1.3 10 ^3/uL Eosinophils # (Auto) 0.2 0-0.8 10 ^3/uL Basophils # (Auto) 0.1 0-0.2 10 ^3/uL Nucleated Red Blood Cells 0.0 % Sodium Level 140 136-145 mmol/L Potassium Level 3.9 3.5-5.1 mmol/L Chloride Level 103 98-107 mmol/L Carbon Dioxide Level 27 20-31 mmol/L Anion Gap 10 5-15 Blood Urea Nitrogen 24 H 9-23 mg/dL Creatinine 0.85 0.700-1.30 mg/dL Glomerular Filtration Rate Calc 108 >90 mL/min BUN/Creatinine Ratio 28.2 H 10.0-20.0 Serum Glucose 117 H 74-106 mg/dL Calcium Level 13.2 *H 8.7-10.4 mg/dL C-Reactive Protein High Sensitivity 12.13 H <1.0 mg/dL PATIENT: IRENE SHRESTHA ACCT: [id number] UNIT: [id number] : 1975 LOC: ER ROOM / BED: / AGE / SEX: 49 / M ADM STATUS: REG ER SERVICE 1440 ORDERING PHYSICIAN: BAKARI ORONA MD PROCEDURE(s): LKNE3 - L KNEE 3V XRAY REASON: left knee pain ORDER NUMBER(s): [id number], ACCESSION NUMBER(s): [id number] CLINICAL INFORMATION: Left knee pain. TECHNIQUE: 3 views of the left knee were obtained. COMPARISON: None FINDINGS: No acute fracture or dislocation. Moderate arthritic changes are seen in all 3 compartments of the left knee with joint space narrowing, subchondral sclerosis, and small marginal osteophytes. Mild soft tissue swelling around the left knee. Moderate joint effusion. IMPRESSION: 1. No evidence of acute bony abnormality. 2. Moderate joint effusion. If there is clinical concern for internal derangement, MRI could be obtained. 3. Arthritic changes as described above. ORDERING PHYSICIAN: BAKARI ORONA MD PROCEDURE(s): CXR1 - CHEST XRAY 1 VIEW REASON: EKG changes ORDER NUMBER(s): [id number], ACCESSION NUMBER(s): [id number] EXAM: XY CHEST XRAY 1 VIEW HISTORY: EKG changes TECHNIQUE: 1 view of the chest COMPARISON: None FINDINGS/IMPRESSION: LUNGS: No pleural effusion, consolidation, or pneumothorax. MEDIASTINUM: Normal cardiac size. Question asymmetric enlargement of the right aspect of the presumed aortic arch versus paratracheal mass. Consider further evaluation with CTA of the chest with contrast BONES: No acute osseous abnormality. OTHER: Right anterior chest Port-A-Cath SEPSIS Sepsis Screen Date sepsis recognized/suspect: Jun 04, 2025 Time Sepsis recognized/suspect: 14:28 Recent Procedure: Yes On Antibiotic Therapy: No Respiratory Rate >20: No Heart Rate >90: Yes Temp<36 C (96.8 F) or >38.3 C: No SBP <90 or MAP <65 mmHG: No New Acute Mental Status Change: No Is the patient on CPAP, BIPAP,: No Physician Orders L Knee 3v Xray (06/04/25 14:40) Chest Xray 1 View (06/04/25 17:26) Aspirin Tablet (06/05/25 10:00) Vancomycin (06/04/25 20:00) Vancomycin (06/04/25 20:00) Furosemide Injection (Lasix Injection) (06/04/25 20:00) Furosemide Injection (Lasix Injection) (06/05/25 10:00) Lactated Ringers Lr (06/04/25 20:00) Lactated Ringers Lr (06/04/25 20:00) * Orthopedic Consult (06/04/25:54) Azithromycin 500mg/ 250ml (Zithromax 50 (06/05/25 10:00) Azithromycin 500mg/ 250ml (Zithromax 50 (06/04/25 20:00) * Cardiology Consult (06/04/25:54) Admit (06/04/25:54) Allergies (06/04/25:) Code Status (06/04/25) Oxygen Per Hour (06/04/25:) Hydrocodone-Acet 5/325mg Tab (Hilton 5/32 (06/04/25 20:00) Ondansetron Hcl (Zofran) (06/04/25 20:00) Docusate Sodium Capsule (Colace Capsule) (06/04/25 20:00) Fall Risk Precautions In Place QSHIFT (06/04/25:54) Complete Blood Count (06/05/25 04:00) Comprehensive Metabolic Panel (06/05/25 04:00) Cardiac Diet-2gna,Lofat,Lochol (06/05/25 Breakfast) Condition: Serious (06/04/25:54) Acetaminophen Tablet (Tylenol Tablet) (06/04/25 20:00) Maintain Bed Rest (06/04/25:54) Sequential Compression Device (06/04/25 ) Nitroglycerin Sublingual (Ntrostat Subli (06/04/25 20:00) Morphine Sulfate Injection (06/04/25 20:00) Stat Ekg For Chest Pain (06/04/25:54) Notify Md Of Changes From Base (06/04/25:) Engineer Steam For 24 Hours (06/04/25:) Emergency Dysrhythmia Protocol (06/04/25) Rhythm Strips Once Every Shift (06/04/25:54) Oxygen By Nasal Cannula (06/04/25:54) Vital Signs Date Time Temp Pulse Resp B/P (MAP) Pulse Ox O2 Delivery O2 Flow Rate FiO2 06/04/25 19:30 98.2 108 16 129/64 (85) 95 98.2 06/04/25 18:29 99.8 115 18 105/69 96 99.8 06/04/25 18:00 104 18 111/68 (82) 95 06/04/25 16:00 109 20 118/73 (88) 97 06/04/25 15:00 118 16 96 Room Air* 0 21 06/04/25 14:54 99.0 117 16 110/81 (91) 97 99.0 06/04/25 14:31 115 Laboratory Tests Test 06/04/25 14:39 White Blood Count 12.1 10^3/uL (4.4-10.8) H Medications Medications Dose Ordered Sig/Trent Route Start Time Stop Time Status Last Admin Dose Admin Aspirin 300 mg ONCE ONCE NC 06/04/25 17:45 06/04/25 17:46 DC 06/04/25 19:28 300 MG Sodium Chloride 1,000 ml @ 1,000 mls/hr Q1H ONCE IV 06/04/25 15:00 06/04/25 15:59 DC 06/04/25 15:36 1,000 MLS/HR Assessment/Plan Assessment/Plan STEMI (ST elevation myocardial infarction) Do not resuscitate discussion Knee effusion, left Leukocytosis, unspecified Hypercalcemia Generalized weakness Systemic inflammatory response syndrome Plan 1. Admit to telemetry unit 2. Breathing treatment 3. Pain control management 4. IV antibiotic management 5. Management of fluids and electrolytes 6. Consultation for Cardiology/hospitalist 7. Diagnostic test left knee x-ray 8. DVT prophylaxis on aspirin 9. Repeat labs CBC, CMP in a.m. 10. Home medication reviewed and reconciled 11. Continue with current medical management 12. Treatment plan discussed with patient/mother and RN. Mother verbalized understanding. Plan discussed with: Patient, Other (RN) My Orders Orders - JIMY ESTRADA DNP Procedure Category Date Status Time Aspirin Tablet PHA 06/05/25 Transmitted 10:00 Vancomycin PHA 06/04/25 Transmitted 20:00 Vancomycin PHA 06/04/25 Transmitted 20:00 Furosemide Injection PHA 06/04/25 Transmitted (Lasix Injection) 20:00 Furosemide Injection PHA 06/05/25 Transmitted (Lasix Injection) 10:00 Lactated Ringers Lr PHA 06/04/25 Transmitted 20:00 Lactated Ringers Lr PHA 06/04/25 Transmitted 20:00 * Orthopedic Consult CONS 06/04/25 Transmitted 19:54 Azithromycin 500mg/ PHA 06/05/25 Transmitted 250ml (Zithromax 50 10:00 Azithromycin 500mg/ PHA 06/04/25 Transmitted 250ml (Zithromax 50 20:00 * Cardiology Consult CONS 06/04/25 Transmitted 19:54 Admit ADMIT 06/04/25 Transmitted 19:54 Allergies CHRISTO 06/04/25 Transmitted 19:54 Code Status CODE 06/04/25 Transmitted 19:54 Oxygen Per Hour RT 06/04/25 Transmitted 19:54 Hydrocodone-Acet PHA 06/04/25 Transmitted 5/325mg Tab (Hilton 20:00 Ondansetron Hcl PHA 06/04/25 Transmitted (Zofran) 20:00 Docusate Sodium PHA 06/04/25 Transmitted Capsule (Colace 20:00 Fall Risk Precautions CHRISTO 06/04/[address] 19:54 Complete Blood Count LAB 06/05/25 Verified 04:00 Comprehensive LAB 06/05/25 Verified Metabolic Panel 04:00 Cardiac DIET 06/05/25 Transmitted Diet-2gna,Lofat,Lochol Breakfast Condition: Serious CHRISTO 06/04/25 Transmitted 19:54 Acetaminophen Tablet [facility] 06/04/25 Transmitted (Tylenol Tablet) 20:00 Maintain Bed Rest CHRISTO 06/04/25 Transmitted 19:54 Sequential [facility] 06/04/25 Transmitted Compression Device Nitroglycerin [facility] 06/04/25 Transmitted Sublingual (Ntrostat 20:00 Morphine Sulfate PHA 06/04/25 Transmitted Injection 20:00 Stat Ekg For Chest [facility] 06/04/25 Transmitted Pain 19:54 Notify Of Changes [facility] 06/04/25 Transmitted From Base 19:54 Engineer Steam For [facility] 06/04/25 Transmitted 24 Hours 19:54 Emergency Dysrhythmia [facility] 06/04/25 Transmitted Protocol 19:54 Rhythm Strips Once [facility] 06/04/25 Transmitted Every Shift 19:54 Oxygen By Nasal RT 06/04/25 Transmitted Cannula 19:54 Problem List: (1) STEMI (ST elevation myocardial infarction) (2) Do not resuscitate discussion (3) Knee effusion, left (4) Leukocytosis, unspecified (5) Hypercalcemia (6) Generalized weakness (7) Systemic inflammatory response syndrome (SIRS) Date of Service: Jun 04, 2025 Billing Provider: JIMY ESTRADA DNP Common Visit Codes: 28026-[id number] INP/OBS CARE (HIGH) JIMY ESTRADA DNP Jun 04, 2025 20:05
[2025-06-04] MEDS: VANCOMYCIN 1GM/250ML KIT 250 ML IV ONE (20:34)
[2025-06-04] MEDS: LACTATED RINGER'S 1,000 ML IV ONE (20:34)
[2025-06-04] MEDS: FUROSEMIDE 20 MG/2 ML VIAL IV ONE (20:53)
[2025-06-04 22:30] VITALS: BP 115/59; PULSE 112; RESP 19; TEMP 99.1
[2025-06-04] MEDS: LACTATED RINGER'S 1,000 ML IV SCH (22:36)
[2025-06-04] MEDS: AZITHROMYCIN 500MG/ 250ML 250 ML IV ONE (22:46)
[2025-06-05 01:00] VITALS: BP 115/69; PULSE 111; RESP 16
[2025-06-05 04:44] VITALS: BP 116/75; PULSE 115; RESP 17
[2025-06-05 06:05] LABS: Hemoglobin 10.2 g/dL (13.5-17.5); Nucleated Red Blood Cells % 0.0 %
[2025-06-05 06:08] LABS: Hematocrit 31.2 % (41.0-53.0); Mean Corpuscular Hemoglobin 28.5 pg (28.0-32.0); Mean Corpuscular Volume 87.0 fL (80.0-100.0)
[2025-06-05 06:24] LABS: Alanine Aminotransferase 14 U/L (7-40); Albumin 3.6 g/dL (3.2-4.8); Alkaline Phosphatase 106 U/L (46-116); Anion Gap 12 (5-15); BUN/Creatinine Ratio 32.4 (10.0-20.0); Carbon Dioxide 27 mmol/L (20-31); Chloride 104 mmol/L (98-107); Glucose 102 mg/dL (74-106); Potassium 4.0 mmol/L (3.5-5.1); Sodium 143 mmol/L (136-145); Total Protein 7.8 g/dL (5.7-8.2)
[2025-06-05 06:53] LABS: Bilirubin, Total 0.2 mg/dL (0.2-1.0); Blood Urea Nitrogen 24 mg/dL (9-23); Calcium 12.7 mg/dL (8.7-10.4)
--- NOTE | 2025-06-05 09:06 | DVHINCON2 ---
Date Seen: Jun 05, 2025 Referring Physician JUSTIN Curtis Reason for Consultation STEMI History of Present Illness 49-year-old male presents to the ED with complaint of left knee pain. 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 The patient has a significant past medical history of brain and lung cancer. He is nonverbal, and history was obtained from nursing staff and medical record. Per report, patient's mother declined any aggressive cardiac intervention, including left heart catheterization, and has elected DNR/DNI status. Past Medical History As stated in HPI Past Surgical History Unknown Family History Reviewed, non-contributory to the management of this case. Social History The patient lives at home, denies smoking, alcohol or illicit drugs abuse. Allergies: Coded Allergies: Penicillins (Verified Allergy, Unknown, 06/04/25) Current Medications Current Medications Medications (Trade) Dose Ordered Sig/Trent Route PRN Reason Start Time Stop Time Status Last Admin Aspirin 81 mg DAILY PO 06/05/25 10:00 Vancomycin HCl 0 ml @ 0 mls/hr UD IV 06/04/25 20:00 UNV Furosemide (Lasix Injection) 20 mg DAILY IV 06/05/25 10:00 Lactated Ringer's 1,000 ml @ 50 mls/hr Q20H IV 06/04/25 20:00 06/04/25 22:36 Azithromycin 250 ml @ 125 mls/hr DAILY IV 06/05/25 10:00 Acetaminophen/ Hydrocodone Bitart ([place] 5/325MG Tab) 1 tab Q4HP PRN PO MODERATE PAIN (4-6 PAIN SCALE) 06/04/25 20:00 Ondansetron HCl (Zofran) 4 mg Q4HP PRN IV NAUSEA / VOMITING 06/04/25 20:00 Docusate Sodium (Colace Capsule) 100 mg BIDPRN PRN PO FOR CONSTIPATION 06/04/25 20:00 Acetaminophen (Tylenol Tablet) 650 mg Q6HP PRN PO PAIN SCALE 1-3 OR TEMP>100.4 06/04/25 20:00 Nitroglycerin (Ntrostat Sublingual) 0.4 mg Q5MINP PRN SL FOR CHEST PAIN 06/04/25 20:00 Morphine Sulfate 2 mg Q30M PRN IV FOR CHEST PAIN 06/04/25 20:00 Review of Systems Constitutional: No symptom reported Ears, Nose, & Throat: No symptom reported Eyes: No symptom reported Neurological: No symptoms reported Pulmonary/Respiratory: No symptom reported Cardiovascular: No symptom reported Gastrointestinal: No symptom reported Genitourinary: No symptom reported Musculoskeletal: Left knee pain Skin: No symptom reported Psychiatric: No symptom reported Endocrine: No symptom reported Hemotologic/Lymphatic: No symptom reported Vital Signs Vital Signs Date Time Temp Pulse Resp B/P (MAP) Pulse Ox O2 Delivery O2 Flow Rate FiO2 06/05/25 08:00 114 06/05/25 04:44 17 116/75 (89) 06/04/25 22:30 99.1 99.1 06/04/25 19:30 Room Air* 0 21 06/04/25 19:30 95 Physical Exam INITIAL VITAL SIGNS: Reviewed by me GENERAL: Alert and oriented X 0 HEAD: Head is normocephalic and atraumatic. EYES: PERRL. ENT: Moist mucous membranes. NECK: Supple RESPIRATORY: No tachypnea. Clear breath sounds bilaterally. CV: Regular rate and rhythm. GI/: Active bowel sounds, soft, nondistended, nontender. INTEGUMENTARY: Warm and dry. No obvious rashes. NEUROLOGIC: Disoriented. At baseline Labs/Diagnostic Data Labs Test 06/05/25 05:35 06/04/25 19:34 06/04/25 18:33 06/04/25 14:39 Range/Units White Blood Count 11.0 H 4.4-10.8 10^3/uL Red Blood Count 3.58 L 4.5-5.90 10^6/uL Hemoglobin 10.2 L 13.5-17.5 g/dL Hematocrit 31.2 L 41.0-53.0 % Mean Corpuscular Volume 87.0 80.0-100.0 fL Mean Corpuscular Hemoglobin 28.5 28.0-32.0 pg Mean Corpuscular Hemoglobin Concent 32.8 32.0-36.0 g/dL Red Cell Distribution Width 17.3 H 11.8-14.3 % Platelet Count 610 H 140-450 10^3/uL Mean Platelet Volume 6.6 L 6.9-10.8 fL Neutrophils (%) (Auto) 79.7 37.0-80.0 % Lymphocytes (%) (Auto) 11.1 10.0-50.0 % Monocytes (%) (Auto) 7.6 0.0-12.0 % Eosinophils (%) (Auto) 0.7 0.0-7.0 % Basophils (%) (Auto) 0.9 0.0-2.0 % Neutrophils # (Auto) 8.8 H 1.6-8.6 10 ^3/uL Lymphocytes # (Auto) 1.2 0.4-5.4 10 ^3/uL Monocytes # (Auto) 0.8 0-1.3 10 ^3/uL Eosinophils # (Auto) 0.1 0-0.8 10 ^3/uL Basophils # (Auto) 0.1 0-0.2 10 ^3/uL Nucleated Red Blood Cells 0.0 % Sodium Level 143 136-145 mmol/L Potassium Level 4.0 3.5-5.1 mmol/L Chloride Level 104 98-107 mmol/L Carbon Dioxide Level 27 20-31 mmol/L Anion Gap 12 5-15 Blood Urea Nitrogen 24 H 9-23 mg/dL Creatinine 0.74 0.700-1.30 mg/dL Glomerular Filtration Rate Calc 112 >90 mL/min BUN/Creatinine Ratio 32.4 H 10.0-20.0 Serum Glucose 102 74-106 mg/dL Calcium Level 12.7 H 8.7-10.4 mg/dL Total Bilirubin 0.2 0.2-1.0 mg/dL Aspartate Amino Transferase (AST) 23 13-40 U/L Alanine Aminotransferase (ALT) 14 7-40 U/L Alkaline Phosphatase 106 46-116 U/L Total Protein 7.8 5.7-8.2 g/dL Albumin 3.6 3.2-4.8 g/dL Troponin I High Sensitivity 13 </=54 ng/L Erythrocyte Sedimentation Rate 99 H 0-20 mm/hr C-Reactive Protein High Sensitivity 12.13 H <1.0 mg/dL PROCEDURE(s): CXR1 - CHEST XRAY 1 VIEW REASON: EKG changes ORDER NUMBER(s): [id number], ACCESSION NUMBER(s): [id number] EXAM: XY CHEST XRAY 1 VIEW HISTORY: EKG changes TECHNIQUE: 1 view of the chest COMPARISON: None FINDINGS/IMPRESSION: LUNGS: No pleural effusion, consolidation, or pneumothorax. MEDIASTINUM: Normal cardiac size. Question asymmetric enlargement of the right aspect of the presumed aortic arch versus paratracheal mass. Consider further evaluation with CTA of the chest with contrast BONES: No acute osseous abnormality. OTHER: Right anterior chest Port-A-Cath Assessment Anterior STEMI in the setting of advanced malignancy Goals of care- family declines invasive intervention. DNR/DNI Left knee pain Hypercalcemia Brain and lung metastatic cancer Plan/Recommendation (Dr. Somers ): No invasive intervention per family wishes and DNR/DNI status. Medical management of STEMI as tolerated Palliative, comfort care approach per family and primary team Continue to monitor vitals and symptoms This medical document was created using an electronic medical record system with voice recognition software and computerized dictation system. Although this document has been carefully reviewed, there might still be some phonetic and typographical errors. Occasional wrong-word or ``sound-alike substitutions may have occurred due to the inherent limitations of voice recognition software. These areas are purely typographical due to imperfections of the software programs and do not reflect any compromise in the patient's medical care. Please read the chart carefully and recognize, using context, where these substitutions have occurred. Plan discussed with: Patient Plan discussed with: Other (RN) NYHA Physical activity limitations: NA Date of Service: Jun 05, 2025 Billing Provider: RALPH SOMERS MD Cardiology Common Codes: CONSULT ONLY Cardiology Consultation Codes: [id number] CONSULT <45MIN LOUISA GREER Jun 05, 2025 09:05
--- NOTE | 2025-06-05 10:49 | DVHINCON2 ---
Date of service: Jun 05, 2025 Referring Physician Kirsten Reason for Consultation Left knee pain History of Present Illness The patient is a 49-year-old male with past medical history of lung cancer with with metastases who presented to [facility] ED with complaint of left knee pain. Patient was seen last month for the same complaint and underwent knee aspiration. Cultures were negative however he did have 11563 white count. The patient was able to communicate minimally so most of the information comes from the chart. I spoke with his father on the phone who has not seen the patient in five years so was unable to give me additional details. The father also states that the patient has not seen his mother in many years. The patient is currently on hospice for end-stage cancer. On this admission he was diagnosed with a myocardial infarction for which Cardiology has not rec ommended treatment due to his hospice status. Reportedly, the patient has not been eating. In addition, patient reportedly suffered recent pulmonary embolus. Past Medical History Lung Cancer Past Surgical History Port-A-Cath, knee aspiration Family History Reviewed, noncontributory to the management of this case. Past Social History The patient lives at home and is reportedly cared for by some friends. Patient has a history of incarceration. Patient has history of chronic methamphetamine abuse. Allergies: Coded Allergies: Penicillins (Verified Allergy, Unknown, 06/04/25) Current Medications Current Medications Medications (Trade) Dose Ordered Sig/Trent Route PRN Reason Start Time Stop Time Status Last Admin Aspirin 81 mg DAILY PO 06/05/25 10:00 Vancomycin HCl 0 ml @ 0 mls/hr UD IV 06/04/25 20:00 Furosemide (Lasix Injection) 20 mg DAILY IV 06/05/25 10:00 Lactated Ringer's 1,000 ml @ 50 mls/hr Q20H IV 06/04/25 20:00 06/04/25 22:36 Azithromycin 250 ml @ 125 mls/hr DAILY IV 06/05/25 10:00 Acetaminophen/ Hydrocodone Bitart ([place] 5/325MG Tab) 1 tab Q4HP PRN PO MODERATE PAIN (4-6 PAIN SCALE) 06/04/25 20:00 Ondansetron HCl (Zofran) 4 mg Q4HP PRN IV NAUSEA / VOMITING 06/04/25 20:00 Docusate Sodium (Colace Capsule) 100 mg BIDPRN PRN PO FOR CONSTIPATION 06/04/25 20:00 Acetaminophen (Tylenol Tablet) 650 mg Q6HP PRN PO PAIN SCALE 1-3 OR TEMP>100.4 06/04/25 20:00 Nitroglycerin (Ntrostat Sublingual) 0.4 mg Q5MINP PRN SL FOR CHEST PAIN 06/04/25 20:00 Morphine Sulfate 2 mg Q30M PRN IV FOR CHEST PAIN 06/04/25 20:00 Vancomycin HCl 250 ml @ 200 mls/hr Q12H IV 06/05/25 10:00 Review of Systems Unable to obtained. Patient states that he has partial paralysis on the left lower extremity. Vital Signs Vital Signs Date Time Temp Pulse Resp B/P (MAP) Pulse Ox O2 Delivery O2 Flow Rate FiO2 06/05/25 08:00 96.9 64 22 140/71 (94) 93 96.9 06/04/25 19:30 Room Air* 0 21 Physical Exam Well-developed well-nourished male in no acute distress The patient was alert but had difficulty with communication Left knee exam Skin intact no erythema Positive effusion He was diffusely tender to palpation and complained of pain with any passive range of motion. Distally there was no edema Distally he was unable to move his left ankle actively 2+ DP pulse X-rays of his left knee reveal degenerative arthritis and knee effusion Labs/Diagnostic Data Labs Test 06/05/25 05:35 06/04/25 19:34 06/04/25 18:33 06/04/25 14:39 Range/Units White Blood Count 11.0 H 4.4-10.8 10^3/uL Red Blood Count 3.58 L 4.5-5.90 10^6/uL Hemoglobin 10.2 L 13.5-17.5 g/dL Hematocrit 31.2 L 41.0-53.0 % Mean Corpuscular Volume 87.0 80.0-100.0 fL Mean Corpuscular Hemoglobin 28.5 28.0-32.0 pg Mean Corpuscular Hemoglobin Concent 32.8 32.0-36.0 g/dL Red Cell Distribution Width 17.3 H 11.8-14.3 % Platelet Count 610 H 140-450 10^3/uL Mean Platelet Volume 6.6 L 6.9-10.8 fL Neutrophils (%) (Auto) 79.7 37.0-80.0 % Lymphocytes (%) (Auto) 11.1 10.0-50.0 % Monocytes (%) (Auto) 7.6 0.0-12.0 % Eosinophils (%) (Auto) 0.7 0.0-7.0 % Basophils (%) (Auto) 0.9 0.0-2.0 % Neutrophils # (Auto) 8.8 H 1.6-8.6 10 ^3/uL Lymphocytes # (Auto) 1.2 0.4-5.4 10 ^3/uL Monocytes # (Auto) 0.8 0-1.3 10 ^3/uL Eosinophils # (Auto) 0.1 0-0.8 10 ^3/uL Basophils # (Auto) 0.1 0-0.2 10 ^3/uL Nucleated Red Blood Cells 0.0 % Sodium Level 143 136-145 mmol/L Potassium Level 4.0 3.5-5.1 mmol/L Chloride Level 104 98-107 mmol/L Carbon Dioxide Level 27 20-31 mmol/L Anion Gap 12 5-15 Blood Urea Nitrogen 24 H 9-23 mg/dL Creatinine 0.74 0.700-1.30 mg/dL Glomerular Filtration Rate Calc 112 >90 mL/min BUN/Creatinine Ratio 32.4 H 10.0-20.0 Serum Glucose 102 74-106 mg/dL Calcium Level 12.7 H 8.7-10.4 mg/dL Total Bilirubin 0.2 0.2-1.0 mg/dL Aspartate Amino Transferase (AST) 23 13-40 U/L Alanine Aminotransferase (ALT) 14 7-40 U/L Alkaline Phosphatase 106 46-116 U/L Total Protein 7.8 5.7-8.2 g/dL Albumin 3.6 3.2-4.8 g/dL Troponin I High Sensitivity 13 </=54 ng/L Erythrocyte Sedimentation Rate 99 H 0-20 mm/hr C-Reactive Protein High Sensitivity 12.13 H <1.0 mg/dL Assessment Left knee effusion, degenerative arthritis, possible septic arthritis. Plan/Recommendation Patient had previous negative culture with moderately high white count. His current sed rate and C-reactive protein are elevated. He may have a septic arthritis however given that he is currently on hospice with limited prognosis and in fact has recently suffered acute PA it does not make any sense to proceed with further evaluation and treatment. I recommend pain management to keep him comfortable. Plan discussed with: Other PAIGE DÍAZ MD Jun 05, 2025 10:49
[2025-06-05] MEDS: VANCOMYCIN 1GM/250ML KIT 250 ML IV SCH (11:07)
[2025-06-05] MEDS: FUROSEMIDE 20 MG/2 ML VIAL IV SCH (11:07)
[2025-06-05] MEDS: AZITHROMYCIN 500MG/ 250ML 250 ML IV SCH (13:09)
[2025-06-05] MEDS: HYDROMORPHONE HCL 1 MG/ML INJ IV PRN (13:55)
--- NOTE | 2025-06-05 19:15 | DVHINCON2 ---
Date Seen: Jun 05, 2025 Referring Physician JUSTIN Curtis Reason for Consultation STEMI History of Present Illness This is a 49-year-old male with a past medical history of brain and lung cancer presents to the ED with a complaint of left knee pain. Patient is nonverbal, and history was obtained from nursing staff and medical record. Per report, patient's mother declined any aggressive cardiac intervention, including left h eart catheterization, and has elected DNR/DNI status. HCT 31.2, BUN 24, CA 12.7. Left knee x-ray showed moderate joint effusion. Cardiology was consulted after a [address] segment elevation in leads V1 and V2, consistent with anterior ST-elevation [place]. Past Medical History As stated in HPI Past Surgical History Unknown Allergies: Coded Allergies: Penicillins (Verified Allergy, Unknown, 06/04/25) Current Medications Current Medications Medications (Trade) Dose Ordered Sig/Trent Route PRN Reason Start Time Stop Time Status Last Admin Aspirin 81 mg DAILY PO 06/05/25 10:00 06/05/25 11:07 Vancomycin HCl 0 ml @ 0 mls/hr UD IV 06/04/25 20:00 Furosemide (Lasix Injection) 20 mg DAILY IV 06/05/25 10:00 06/05/25 11:07 Lactated Ringer's 1,000 ml @ 50 mls/hr Q20H IV 06/04/25 20:00 06/04/25 22:36 Azithromycin 250 ml @ 125 mls/hr DAILY IV 06/05/25 10:00 06/05/25 13:09 Acetaminophen/ Hydrocodone Bitart ([place] 5/325MG Tab) 1 tab Q4HP PRN PO MODERATE PAIN (4-6 PAIN SCALE) 06/04/25 20:00 Ondansetron HCl (Zofran) 4 mg Q4HP PRN IV NAUSEA / VOMITING 06/04/25 20:00 Docusate Sodium (Colace Capsule) 100 mg BIDPRN PRN PO FOR CONSTIPATION 06/04/25 20:00 Acetaminophen (Tylenol Tablet) 650 mg Q6HP PRN PO PAIN SCALE 1-3 OR TEMP>100.4 06/04/25 20:00 Nitroglycerin (Ntrostat Sublingual) 0.4 mg Q5MINP PRN SL FOR CHEST PAIN 06/04/25 20:00 Morphine Sulfate 2 mg Q30M PRN IV FOR CHEST PAIN 06/04/25 20:00 Vancomycin HCl 250 ml @ 200 mls/hr Q12H IV 06/05/25 10:00 06/05/25 11:07 Hydromorphone HCl (Dilaudid Injection) 0.5 mg Q4HPRN PRN IV SEVERE PAIN (7-10 PAIN SCALE) 06/05/25 14:00 06/05/25 13:55 Review of Systems Constitutional: No symptom reported Ears, Nose, & Throat: No symptom reported Eyes: No symptom reported Neurological: No symptoms reported Pulmonary/Respiratory: No symptom reported Cardiovascular: No symptom reported Gastrointestinal: No symptom reported Genitourinary: No symptom reported Musculoskeletal: Left knee pain Skin: No symptom reported Psychiatric: No symptom reported Endocrine: No symptom reported Hemotologic/Lymphatic: No symptom reported Vital Signs Vital Signs Date Time Temp Pulse Resp B/P (MAP) Pulse Ox O2 Delivery O2 Flow Rate FiO2 06/05/25 13:55 106 13 133/71 06/05/25 12:00 96 06/05/25 08:00 96.9 96.9 06/04/25 19:30 Room Air* 0 21 Physical Exam GENERAL: Disoriented at baseline. NAD. EYES: PERRL, EOMI. Anicteric. HENT: Moist mucous membranes. LUNGS: Clear to auscultation bilaterally. CARDIOVASCULAR: Regular rate and rhythm. ABDOMEN: Soft, nontender and nondistended. EXTREMITIES: No edema. SKIN: Warm, dry. Labs/Diagnostic Data Labs Test 06/05/25 05:35 06/04/25 19:34 06/04/25 18:33 06/04/25 14:39 Range/Units White Blood Count 11.0 H 4.4-10.8 10^3/uL Red Blood Count 3.58 L 4.5-5.90 10^6/uL Hemoglobin 10.2 L 13.5-17.5 g/dL Hematocrit 31.2 L 41.0-53.0 % Mean Corpuscular Volume 87.0 80.0-100.0 fL Mean Corpuscular Hemoglobin 28.5 28.0-32.0 pg Mean Corpuscular Hemoglobin Concent 32.8 32.0-36.0 g/dL Red Cell Distribution Width 17.3 H 11.8-14.3 % Platelet Count 610 H 140-450 10^3/uL Mean Platelet Volume 6.6 L 6.9-10.8 fL Neutrophils (%) (Auto) 79.7 37.0-80.0 % Lymphocytes (%) (Auto) 11.1 10.0-50.0 % Monocytes (%) (Auto) 7.6 0.0-12.0 % Eosinophils (%) (Auto) 0.7 0.0-7.0 % Basophils (%) (Auto) 0.9 0.0-2.0 % Neutrophils # (Auto) 8.8 H 1.6-8.6 10 ^3/uL Lymphocytes # (Auto) 1.2 0.4-5.4 10 ^3/uL Monocytes # (Auto) 0.8 0-1.3 10 ^3/uL Eosinophils # (Auto) 0.1 0-0.8 10 ^3/uL Basophils # (Auto) 0.1 0-0.2 10 ^3/uL Nucleated Red Blood Cells 0.0 % Sodium Level 143 136-145 mmol/L Potassium Level 4.0 3.5-5.1 mmol/L Chloride Level 104 98-107 mmol/L Carbon Dioxide Level 27 20-31 mmol/L Anion Gap 12 5-15 Blood Urea Nitrogen 24 H 9-23 mg/dL Creatinine 0.74 0.700-1.30 mg/dL Glomerular Filtration Rate Calc 112 >90 mL/min BUN/Creatinine Ratio 32.4 H 10.0-20.0 Serum Glucose 102 74-106 mg/dL Calcium Level 12.7 H 8.7-10.4 mg/dL Total Bilirubin 0.2 0.2-1.0 mg/dL Aspartate Amino Transferase (AST) 23 13-40 U/L Alanine Aminotransferase (ALT) 14 7-40 U/L Alkaline Phosphatase 106 46-116 U/L Total Protein 7.8 5.7-8.2 g/dL Albumin 3.6 3.2-4.8 g/dL Troponin I High Sensitivity 13 </=54 ng/L Erythrocyte Sedimentation Rate 99 H 0-20 mm/hr C-Reactive Protein High Sensitivity 12.13 H <1.0 mg/dL Assessment Anterior STEMI in the setting of advanced malignancy. Goals of care- family declines invasive intervention. DNR/DNI. Left knee pain. Hypercalcemia. Brain and lung metastatic cancer. Plan/Recommendation I agree with your ongoing assessment and care of plan. Patient has been seen by Verónica Dykes NP on my behalf, her and I discussed the plan with the patient. No invasive intervention per family wishes and DNR/DNI status. Medical management of STEMI as tolerated. Palliative, comfort care approach per family and primary team. Continue to monitor vitals and symptoms. Additional plan as per the hospital course. Plan discussed with: Patient NYHA Physical activity limitations: NA Date of Service: Jun 05, 2025 Billing Provider: RALPH SOMERS MD Cardiology Common Codes: [id number] INP/OBS CARE (High) Cardiology Consultation Codes: [id number]-[id number] CONSULT <45MIN RALPH SOMERS MD Jun 05, 2025 14:44
--- NOTE | 2025-06-05 20:35 | DVHPN2 ---
Assessment/Plan Assessment/Plan progress note 49 M with lung cancer w/ mets, hx of PE, recurrent knee effusion, on hospice admitted for knee pain, found to have STEMI. seen today. called POC< discussed care. will proceed with comfort care in the interim. considering tap more for comfort. labs ekg imaging reviewed assessment and plan knee effusion possibly septic arthritis STEMI lung ca w brain mets metabolic encephalopathy possibly therapeutic arthrocentesis dc back to hospice once appropriate comfort and pain mgmt medical management CAD diet liq dvt ppx lovenox DNR DNI advance care plan 30 mins Plan discussed with: Other My Orders Orders - YUMI ABDUL MD Procedure Category Date Status Time Hydromorphone Hcl Inj PHA 06/05/25 In Process (Dilaudid Injectio 14:00 Date of Service: Jun 05, 2025 Billing Provider: YUMI ABDUL MD Common Visit Codes: [id number] INP/OBS CARE(HIGH) Secondary Visit Codes: 72207-[id number] CARE PLAN 30 MINUTES YUMI ABDUL MD Jun 05, 2025 20:35
[2025-06-06] VITALS (9 sets, daily range): BP systolic 116–126; BP diastolic 51–79; PULSE 98–107; RESP 16–19; TEMP 98.1–98.4; O2SAT 93–97
[2025-06-06 08:02] LABS: Hematocrit 27.2 % (41.0-53.0); Hemoglobin 9.1 g/dL (13.5-17.5); Mean Corpuscular Hemoglobin 29.0 pg (28.0-32.0); Mean Corpuscular Volume 86.4 fL (80.0-100.0); Nucleated Red Blood Cells % 0.0 %
--- NOTE | 2025-06-06 18:35 | DVHPN2 ---
Assessment/Plan Assessment/Plan progress note 49 M with lung cancer w/ mets, hx of PE, recurrent knee effusion, on hospice admitted for knee pain, found to have STEMI. seen today. plan for tap tomorrow then dispo labs ekg imaging reviewed assessment and plan knee effusion possibly septic arthritis STEMI lung ca w brain mets metabolic encephalopathy possibly therapeutic arthrocentesis dc back to hospice once appropriate comfort and pain mgmt medical management CAD diet liq dvt ppx lovenox DNR DNI Plan discussed with: Patient Date of Service: Jun 06, 2025 Billing Provider: YUMI ABDUL MD Common Visit Codes: [id number] INP/OBS CARE(HIGH) YUMI ABDUL MD Jun 06, 2025 18:35
[2025-06-06 22:41] LABS: Anion Gap 11 (5-15); Carbon Dioxide 27 mmol/L (20-31); Chloride 105 mmol/L (98-107); Sodium 143 mmol/L (136-145)
[2025-06-06 22:47] LABS: BUN/Creatinine Ratio 30.9 (10.0-20.0); Blood Urea Nitrogen 21 mg/dL (9-23); Glucose 92 mg/dL (74-106); Magnesium 1.9 mg/dL (1.6-2.6)
[2025-06-06 22:49] LABS: Calcium 11.5 mg/dL (8.7-10.4); Potassium 3.4 mmol/L (3.5-5.1)
--- NOTE | 2025-06-06 23:47 | DVHPN2 ---
Progress Note - Dictate Date Seen: Jun 06, 2025 Medical Necessity Reason Pt with a Central, PICC or Fol: No Subjective Patient was seen and evaluated in follow up. Patient is resting in bed. Family have declined for invasive intervention. Patient receiving comfort and pain management. HGB 9.1, HCT 27.2, K 3.4. Telemetry reviewed. vital signs Vital Sign Date Time Temp Pulse Resp B/P (MAP) Pulse Ox O2 Delivery O2 Flow Rate FiO2 06/06/25 17:00 98.4 101 18 116/51 (72) 94 98.4 06/06/25 01:55 Room Air* 0 21 Total Intake and Output 06/05/25 06/05/25 06/06/25 15:00 23:00 07:00 Intake Total 775 ml 325 ml 0 ml Balance 775 ml 325 ml 0 ml medications Current Medications Medications Dose Ordered Sig/Trent Route Start Time Stop Time Status Last Admin Dose Admin Aspirin 81 mg DAILY PO 06/05/25 10:00 06/06/25 11:02 81 MG Vancomycin HCl 0 ml @ 0 mls/hr UD IV 06/04/25 20:00 Lactated Ringer's 1,000 ml @ 50 mls/hr Q20H IV 06/04/25 20:00 06/06/25 06:31 50 MLS/HR Azithromycin 250 ml @ 125 mls/hr DAILY IV 06/05/25 10:00 06/06/25 11:02 125 MLS/HR Vancomycin HCl 250 ml @ 200 mls/hr Q12H IV 06/05/25 10:00 06/06/25 21:47 200 MLS/HR Hydromorphone HCl 0.5 mg Q4HPRN PRN IV 06/05/25 14:00 06/06/25 12:02 0.5 MG objective GENERAL: Disoriented at baseline. NAD. EYES: PERRL, EOMI. Anicteric. HENT: Moist mucous membranes. LUNGS: Clear to auscultation bilaterally. CARDIOVASCULAR: Regular rate and rhythm. ABDOMEN: Soft, nontender and nondistended. EXTREMITIES: No edema. SKIN: Warm, dry. laboratory and microbiology Laboratory Tests 06/06/25 22:07 06/06/25 07:38 Test 06/06/25 22:07 Range/Units Serum Glucose 92 74-106 mg/dL Problem List Anterior STEMI in the setting of advanced malignancy. Left knee pain. Hypercalcemia. Brain and lung metastatic cancer. Assessment/Plan Continued all current supportive medical care. Aspirin. IV antibiotics as ordered. Dilaudid for pain management. Additional plan as per the hospital course. Plan discussed with: RALPH Chowdhury MD Jun 06, 2025 23:47
[2025-06-07 01:00] VITALS: BP 115/70; PULSE 82; RESP 18; O2SAT 95
[2025-06-07 05:00] VITALS: BP 101/51; PULSE 92; RESP 19; O2SAT 94
[2025-06-07 05:57] LABS: Hematocrit 25.9 % (41.0-53.0); Hemoglobin 8.6 g/dL (13.5-17.5); Mean Corpuscular Hemoglobin 28.6 pg (28.0-32.0); Mean Corpuscular Volume 85.6 fL (80.0-100.0); Nucleated Red Blood Cells % 0.1 %
[2025-06-07 06:08] LABS: Chloride 105 mmol/L (98-107); Sodium 143 mmol/L (136-145)
[2025-06-07 06:09] LABS: Anion Gap 9 (5-15); Carbon Dioxide 29 mmol/L (20-31)
[2025-06-07 06:14] LABS: Glucose 84 mg/dL (74-106)
[2025-06-07 06:15] LABS: BUN/Creatinine Ratio 30.3 (10.0-20.0); Blood Urea Nitrogen 20 mg/dL (9-23); INR 1.16 (0.9-1.15); Partial Thromboplastin Time 29.1 SEC (24.5-34.5); Prothrombin Time 12.1 sec (9.3-11.8)
[2025-06-07 06:19] LABS: Calcium 11.4 mg/dL (8.7-10.4); Potassium 3.2 mmol/L (3.5-5.1)
[2025-06-07 09:00] VITALS: BP 120/80; PULSE 91; RESP 22; TEMP 98; O2SAT 97
[2025-06-07 13:00] VITALS: BP 113/81; PULSE 96; RESP 20; TEMP 98.3; O2SAT 96
--- NOTE | 2025-06-07 13:00 | DVH ---
PROCEDURE: ULTRASOUND GUIDED FLUID ASPIRATION HISTORY: REOCCURING LT KNEE EFFUSION DOCUMENTATION: Informed consent was obtained and a procedural time out was performed. SEDATION: No sedation . TECHNIQUE: The patient was placed supine on the gurney . Left knee fluid collection was localized with ultrasoun d and overlying skin prepped with chlorhexidine which was allowed to dry and draped in the usual ster ile fashion. With ultrasound guidance, and 19 gauge centesis needle catheter was advanced into the se ptated/ complex fluid collection. 2 different sites were accessed ultrasound guidance. Only 1 cc of s anguineous fluid was aspirated and sent to the lab . No immediate complication was identified FINDINGS: Limited US scan of through the left knee demonstrates a complex/sepatated suprapatellar fluid. IMPRESSION: US guided left knee arthrocentesis with 1 cc of sanguineous fluid removed.
--- NOTE | 2025-06-07 15:10 | DVHPN2 ---
Assessment/Plan Assessment/Plan progress note 49 M with lung cancer w/ mets, hx of PE, recurrent knee effusion, on hospice admitted for knee pain, found to have STEMI. seen today. therapeutic tap done. discussed with ss, although mom said pt was on hospice, service was never started. will restart labs ekg imaging reviewed assessment and plan knee effusion possibly septic arthritis STEMI lung ca w brain mets metabolic encephalopathy possibly therapeutic arthrocentesis dc back to hospice once appropriate comfort and pain mgmt medical management CAD diet liq dvt ppx lovenox DNR DNI Plan discussed with: Other My Orders Orders - YUMI ABDUL MD Procedure Category Date Status Time Us Guidance For US 06/07/25 Resulted Needle Placeme 08:24 * Shift Boss CONS 06/07/25 Transmitted Consult Date of Service: Jun 07, 2025 Billing Provider: YUMI ABDUL MD Common Visit Codes: [id number] INP/OBS CARE(HIGH) YUMI ABDUL MD Jun 07, 2025 15:10
[2025-06-07 17:00] VITALS: BP 124/70; PULSE 97; RESP 17; TEMP 99.9; O2SAT 96
[2025-06-07 21:00] VITALS: BP 112/69; PULSE 91; RESP 18; TEMP 98.5; O2SAT 99
--- NOTE | 2025-06-08 02:56 | DVHPN2 ---
Progress Note - Dictate Date Seen: Jun 07, 2025 Medical Necessity Reason Pt with a Central, PICC or Fol: No Subjective Patient was seen and evaluated in follow up. Patient is resting in bed. Patient receiving comfort measured. HGB 8.6, HCT 25.9, K 3.2, CA 11.4. Patient underwent US guided left knee arthrocentesis with 1 cc of sanguineous fluid removed. Telemetry reviewed. vital signs Vital Sign Date Time Temp Pulse Resp B/P (MAP) Pulse Ox O2 Delivery O2 Flow Rate FiO2 06/07/25 12:42 94 15 128/86 06/07/25 08:00 Room Air* 0 21 06/07/25 05:00 94 06/06/25 21:00 98.1 98.1 Total Intake and Output 06/06/25 06/06/25 06/07/25 15:00 23:00 07:00 Intake Total 850 ml 200 ml Output Total 450 ml Balance 400 ml 200 ml medications Current Medications Medications Dose Ordered Sig/Trent Route Start Time Stop Time Status Last Admin Dose Admin Aspirin 81 mg DAILY PO 06/05/25 10:00 06/07/25 11:19 81 MG Vancomycin HCl 0 ml @ 0 mls/hr UD IV 06/04/25 20:00 Lactated Ringer's 1,000 ml @ 50 mls/hr Q20H IV 06/04/25 20:00 06/06/25 06:31 50 MLS/HR Azithromycin 250 ml @ 125 mls/hr DAILY IV 06/05/25 10:00 06/07/25 13:03 125 MLS/HR Vancomycin HCl 250 ml @ 200 mls/hr Q12H IV 06/05/25 10:00 06/07/25 11:19 200 MLS/HR Hydromorphone HCl 0.5 mg Q4HPRN PRN IV 06/05/25 14:00 06/07/25 12:12 0.5 MG objective GENERAL: Disoriented at baseline. NAD. EYES: PERRL, EOMI. Anicteric. HENT: Moist mucous membranes. LUNGS: Clear to auscultation bilaterally. CARDIOVASCULAR: Regular rate and rhythm. ABDOMEN: Soft, nontender and nondistended. EXTREMITIES: No edema. SKIN: Warm, dry. laboratory and microbiology Laboratory Tests 06/07/25 05:30 Test 06/07/25 05:30 Range/Units Serum Glucose 84 74-106 mg/dL Problem List Anterior STEMI in the setting of advanced malignancy. Left knee pain. Hypercalcemia. Brain and lung metastatic cancer. Assessment/Plan Continued all current supportive medical care. Aspirin. IV antibiotics as ordered. Dilaudid for pain management. Additional plan as per the hospital course. Plan discussed with: Patient RALPH SOMERS MD Jun 07, 2025 14:33
[2025-06-08 05:00] VITALS: BP 124/70; PULSE 90; RESP 19; TEMP 97.4; O2SAT 95
[2025-06-08 09:00] VITALS: BP 122/87; PULSE 96; RESP 16; TEMP 98.2; O2SAT 93
[2025-06-08 13:00] VITALS: BP 117/67; PULSE 89; RESP 17; TEMP 98; O2SAT 96
--- NOTE | 2025-06-08 14:18 | DVHDS2 ---
Discharge Summary Date of Admission Jun 04, 2025 at 19:54 Date of Discharge: Jun 08, 2025 Labs/Diagnostic Data: Laboratory Results Test 06/07/25 05:30 06/06/25 22:07 06/06/25 07:38 06/05/25 05:35 White Blood Count 8.7 10^3/uL (4.4-10.8) Red Blood Count 3.02 10^6/uL (4.5-5.90) Hemoglobin 8.6 g/dL (13.5-17.5) Hematocrit 25.9 % (41.0-53.0) Mean Corpuscular Volume 85.6 fL (80.0-100.0) Mean Corpuscular Hemoglobin 28.6 pg (28.0-32.0) Mean Corpuscular Hemoglobin Concent 33.3 g/dL (32.0-36.0) Red Cell Distribution Width 16.6 % (11.8-14.3) Platelet Count 449 10^3/uL (140-450) Mean Platelet Volume 6.7 fL (6.9-10.8) Neutrophils (%) (Auto) 75.0 % (37.0-80.0) Lymphocytes (%) (Auto) 15.8 % (10.0-50.0) Monocytes (%) (Auto) 6.5 % (0.0-12.0) Eosinophils (%) (Auto) 2.1 % (0.0-7.0) Basophils (%) (Auto) 0.6 % (0.0-2.0) Neutrophils # (Auto) 6.5 10 ^3/uL (1.6-8.6) Lymphocytes # (Auto) 1.4 10 ^3/uL (0.4-5.4) Monocytes # (Auto) 0.6 10 ^3/uL (0-1.3) Eosinophils # (Auto) 0.2 10 ^3/uL (0-0.8) Basophils # (Auto) 0.1 10 ^3/uL (0-0.2) Nucleated Red Blood Cells 0.1 % Prothrombin Time 12.1 sec (9.3-11.8) Prothrombin Time INR 1.16 (0.9-1.15) Activated Partial Thromboplast Time 29.1 SEC (24.5-34.5) Sodium Level 143 mmol/L (136-145) Potassium Level 3.2 mmol/L (3.5-5.1) Chloride Level 105 mmol/L (98-107) Carbon Dioxide Level 29 mmol/L (20-31) Anion Gap 9 (5-15) Blood Urea Nitrogen 20 mg/dL (9-23) Creatinine 0.66 mg/dL (0.700-1.30) Glomerular Filtration Rate Calc 116 mL/min (>90) BUN/Creatinine Ratio 30.3 (10.0-20.0) Serum Glucose 84 mg/dL (74-106) Calcium Level 11.4 mg/dL (8.7-10.4) Magnesium Level 1.9 mg/dL (1.6-2.6) Vancomycin Level Trough 19.3 ug/mL (5-10) Total Bilirubin 0.2 mg/dL (0.2-1.0) Aspartate Amino Transferase (AST) 23 U/L (13-40) Alanine Aminotransferase (ALT) 14 U/L (7-40) Alkaline Phosphatase 106 U/L (46-116) Total Protein 7.8 g/dL (5.7-8.2) Albumin 3.6 g/dL (3.2-4.8) Test 06/04/25 19:34 06/04/25 18:33 06/04/25 14:39 Troponin I High Sensitivity 13 ng/L (</=54) Erythrocyte Sedimentation Rate 99 mm/hr (0-20) C-Reactive Protein High Sensitivity 12.13 mg/dL (<1.0) Other Laboratory Tests 06/07/25 05:30 Final Diagnosis/Problems List rcc w/ mets pyogenic arthritis, recurrent s/p athrocentesis chronic pain Discharge Disposition: Home with Health Services Discharge Instruct/Medications Diet: Consistent carbohydrate, Cardiac 2g Na,low cholest Activity: No Restrictions, As Tolerated Scheduled Apixaban Base (Eliquis), 5 MG PO BID Apixaban Base (Eliquis), 10 MG PO BID Clindamycin HCl (Clindamycin Hydrochloride), 300 MG PO TID Oxycodone W/ Acetaminophen (Percocet 5/325MG), 1 TAB PO TID Discharge Statement: "Patient was advised to return to the ER or call 911 if any headaches, dizziness, shortness of breath, chest pain, abdominal pain, bleeding, fevers, or worsening of medical condition. Patient was counseled about treatment plan, medications, possible side effects, patientverbalized understanding. All questions were answered to the best of my ability. This discharge took greater then 30 minutes in planning, reviewing documentation, counseling the patient, and discussing with other team members." ASSESSMENT ASSESSMENT Assessment rcc w/ mets pyogenic arthritis, recurrent s/p athrocentesis chronic pain Date of Service: Jun 08, 2025 Billing Provider: YUMI ABDUL MD Common Visit Codes: 72918-FWC/OBS DISCH DAY >30min YUMI ABDUL MD Jun 08, 2025 14:18
[2025-06-08 17:00] VITALS: BP 120/76; PULSE 91; RESP 16; TEMP 98; O2SAT 96
[2025-06-08 21:00] VITALS: BP 136/68; PULSE 84; RESP 18; TEMP 98.5; O2SAT 96
--- NOTE | 2025-06-08 21:21 | DVHPN2 ---
Progress Note - Dictate Date Seen: Jun 08, 2025 Medical Necessity Reason Pt with a Central, PICC or Fol: No Subjective Patient was seen and evaluated in follow up. Overnight, the patient refused routine turning/repositioning and wearing sack filler. CM is working on SNF placement. vital signs Vital Sign Date Time Temp Pulse Resp B/P (MAP) Pulse Ox O2 Delivery O2 Flow Rate FiO2 06/08/25 08:00 Room Air* 0 21 06/08/25 05:00 97.4 90 19 124/70 (88) 95 97.4 Total Intake and Output 06/07/25 06/07/25 06/08/25 15:00 23:00 07:00 Intake Total 250 ml 250 ml 340 ml Output Total 400 ml 660 ml Balance 250 ml -150 ml -320 ml medications Current Medications Medications Dose Ordered Sig/Trent Route Start Time Stop Time Status Last Admin Dose Admin Aspirin 81 mg DAILY PO 06/05/25 10:00 06/08/25 10:17 81 MG Vancomycin HCl 0 ml @ 0 mls/hr UD IV 06/04/25 20:00 Lactated Ringer's 1,000 ml @ 50 mls/hr Q20H IV 06/04/25 20:00 06/08/25 03:52 50 MLS/HR Azithromycin 250 ml @ 125 mls/hr DAILY IV 06/05/25 10:00 06/08/25 11:47 125 MLS/HR Vancomycin HCl 250 ml @ 200 mls/hr Q12H IV 06/05/25 10:00 06/08/25 10:17 200 MLS/HR Hydromorphone HCl 0.5 mg Q4HPRN PRN IV 06/05/25 14:00 06/08/25 03:49 0.5 MG objective GENERAL: Disoriented at baseline. NAD. EYES: PERRL, EOMI. Anicteric. HENT: Moist mucous membranes. LUNGS: Clear to auscultation bilaterally. CARDIOVASCULAR: Regular rate and rhythm. ABDOMEN: Soft, nontender and nondistended. EXTREMITIES: No edema. SKIN: Warm, dry. laboratory and microbiology Laboratory Tests 06/07/25 05:30 Test 06/07/25 05:30 Range/Units Serum Glucose 84 74-106 mg/dL Problem List Anterior STEMI in the setting of advanced malignancy. Left knee pain. Hypercalcemia. Brain and lung metastatic cancer. Assessment/Plan Continued all current supportive medical care. Aspirin. IV antibiotics as ordered. Dilaudid for pain management. Additional plan as per the hospital course. Plan discussed with: Patient RALPH SOMERS MD Jun 08, 2025 13:55
== END 2025-06-08 21:00 | disposition hospice, home (50) | DRG 720 ==
LOC: ER 14:31 → EDBD 14:31 → EDUNIT# 19:54 → OVERFLOW 19:54 → TELE-EAST 06-06 01:55 → EAST 06-08 10:02
PROVIDERS: ADMIT Student in an Organized Health Care Education/Training Program; ATTEND Student in an Organized Health Care Education/Training Program
PROC: 0S9D3ZX Drainage of Left Knee Joint, Percutaneous Approach, Diagnostic (ICD-10-PCS; principal; 2025-06-07)
DX: A41.9 Sepsis, unspecified organism (principal); G93.41 Metabolic encephalopathy; C78.01 Secondary malignant neoplasm of right lung; M00.9 Pyogenic arthritis, unspecified; C78.02 Secondary malignant neoplasm of left lung; M17.12 Unilateral primary osteoarthritis, left knee; C79.31 Secondary malignant neoplasm of brain; Z51.5 Encounter for palliative care; Z66 Do not resuscitate; R65.10 Systemic inflammatory response syndrome (SIRS) of non-infectious origin without acute organ dysfunction; M25.462 Effusion, left knee; E83.52 Hypercalcemia; I25.10 Atherosclerotic heart disease of native coronary artery without angina pectoris; F17.200 Nicotine dependence, unspecified, uncomplicated; G89.29 Other chronic pain; F15.10 Other stimulant abuse, uncomplicated; C64.2 Malignant neoplasm of left kidney, except renal pelvis; C64.1 Malignant neoplasm of right kidney, except renal pelvis; Z85.118 Personal history of other malignant neoplasm of bronchus and lung; Z86.711 Personal history of pulmonary embolism; Z88.0 Allergy status to penicillin; Z79.899 Other long term (current) drug therapy
CPT/HCPCS: 20611; 36415; 71045; 73562; 76942; 80048; 80053; 80202; 82565; 83735; 84484; 85025; 85610; 85652; 85730; 86141; 87071; 87081; 87205; 93005; 96365; 96375; 99291; C1729; G0378